=== PATIENT | male | born 1975 | race Caucasian/White ===

== ENCOUNTER 2017-07-03 15:36 | Emergency (ER) | payer OTHER, MEDICAID, SELFPAY ==
[2017-07-03 15:39] VITALS: BP 114/72; PULSE 81; RESP 20; TEMP 36.6; O2SAT 99; BMI 32.2
--- NOTE | 2017-07-03 15:44 | PC.NURSE ---
States is now clean off any drugs
--- NOTE | 2017-07-03 15:50 | ED.ABDPAIN ---
HPI - Abdominal Pain General Chief Complaint: Abdominal Pain Stated Complaint: 'STOMACH BURNING' Time Seen by Provider: 07/03/17 15:50 Source: patient Mode of arrival: ambulatory Limitations: no limitations History of Present Illness HPI narrative: 41-year-old male with a history of gastritis in the past presents with epigastric and left upper quadrant abdominal pain/burning that began this morning after taking 3 prescription strength Aleve. He also had alcohol last night. He denies a history of tobacco use. He has never had an upper endoscopy. He is currently on methadone for narcotic abuse. He denies fevers or chills. Denies diarrhea. Denies nausea or vomiting. Related Data Home Medications Medication Instructions Recorded Confirmed naproxen 1,500 mg PO PRN 07/03/17 07/03/17 Previous Rx's Medication Instructions Recorded cephalexin [Keflex] 500 mg PO Q6H #56 cap 04/28/17 methadone 10 mg PO Q8H #1 tab 04/28/17 omeprazole magnesium [Prilosec OTC] 40 mg PO DAILY 14 Days #30 tab 07/03/17 Allergies Allergy/AdvReac Type Severity Reaction Status Date / Time No Known Drug Allergies Allergy Verified 07/03/17 16:46 Review of Systems Review of Systems All systems reviewed & are unremarkable except as noted in HPI and below Constitutional Denies chills, Denies fever(s), Denies lethargy and Denies weakness Eyes Denies change in vision, Denies eye discharge, Denies irritation and Denies loss of vision ENT Ears, Nose, Mouth, and Throat: Denies change in voice, Denies neck pain and Denies sore throat Cardiovascular Denies chest pain, Denies irregular heart rhythm, Denies lightheadedness, Denies palpitations, Denies dyspnea, Denies dyspnea on exertion and Denies orthopnea Respiratory Denies cough, Denies dyspnea, Denies dyspnea on exertion and Denies wheezing Gastrointestinal Gastrointestinal: Reports abdominal pain, Denies hematochezia, Denies change in bowel habits, Denies tenesmus, Denies diarrhea, Denies nausea and Denies vomiting Genitourinary Denies hematuria, Denies flank pain, Denies urinary incontinence and Denies urinary urgency Musculoskeletal Denies neck pain Integumentary/Breasts Denies pruritus, Denies erythema, Denies rash and Denies wounds Neurologic Denies confusion, Denies loss of vision and Denies weakness Psychiatric Denies anxiety, Denies confusion, Denies depression, Denies homicidal ideation and Denies suicidal ideation Endocrine Denies palpitations Hematologic/Lymphatic Denies easy bruising Allergic/Immunologic Denies wheezing PFSH Social History Smoking Status: Never smoker Exam Initial Vital Signs Initial Vital Signs: Vital Signs Temperature 97.8 F 07/03/17 15:39 Pulse Rate 81 07/03/17 15:39 Respiratory Rate 20 07/03/17 15:39 Blood Pressure 114/72 07/03/17 15:39 Pulse Oximetry 99 07/03/17 15:39 Const General: cooperative and well developed Nutritional Appearance: well nourished Orientation: alert, awake, oriented x3 and not confused HENMT Head: normocephalic and atraumatic Ears: external ears normal and TM's normal bilaterally Nose: external nose normal and No nasal discharge Face and sinus: sinuses nontender, face symmetric, no sinus tenderness and No dry mucous membranes Mouth: oral mucosae normal and moist mucous membranes Teeth and gingiva: dentition normal Throat: tonsils normal and uvula midline Eyes General: appearance normal, both eyes and all related structures Eyelids: eyelids normal Conjunctivae: conjunctivae normal Sclera: sclerae normal Pupils: PERRL EOM: EOM intact bilaterally Neck Neck: normal visual inspection, trachea midline, No lymphadenopathy, No midline deformity and No JVD Lymphatic: No lymphedema Chest Chest: normal inspection of the chest Resp Effort & Inspection: normal respiratory effort, able to speak in complete sentences, no respiratory distress and no use of accessory muscles Auscultation: clear to auscultation bilaterally, no rales, no rhonchi and no wheezes Cardio Rate: regular rate Rhythm: regular rhythm Heart Sounds: no click, no gallops, no murmurs and no rubs Pulses: normal peripheral pulses GI Inspection: non-distended Palpation: soft, no hepatosplenomegaly, No guarding, No pulsatile mass and No tender Auscultation: normal bowel sounds Back/Spine/Pelvis Back: No CVA tenderness Cervical Spine: cervical ROM normal and No pain with cervical ROM Thoracic/Lumbar Spine: thoracic and lumbar spine normal to inspection Skin General: no rashes or lesions noted, No jaundice and No petechiae Neuro General: alert, oriented x3, gait normal and no focal motor deficits Cranial Nerves: CN's II-XI intact bilaterally Speech: speech normal Motor: strength 5/5 throughout Sensory Exam: no sensory deficits noted Extrem General: full ROM, no clubbing, cyanosis or edema, no pedal edema and no calf tenderness Psych Appearance: well kempt Mental Status: mental status grossly normal Attitude: cooperative Thought Content: normal and suicidality Judgment: judgment good Course Orders Ordered: Discontinued Medications Al Hydrox/Mg Hydrox/Simethicone 20 ml/ Lidocaine HCl 15 ml 0 ml PO NOW ONE Stop: 07/03/17 16:40 Last Admin: 07/03/17 16:46 Dose: 40 ml Vital Signs - 8 hr 07/03/17 15:39 07/03/17 16:40 Temperature 97.8 F Pulse Rate 81 76 Respiratory Rate 20 16 Blood Pressure 114/72 Blood Pressure [Left Arm] 120/80 Pulse Oximetry 99 97 MDM - Abdominal Pain Differential Diagnosis Differential diagnosis: Likely abdominal pain, acute appendicitis, calculus of kidney, constipation, diverticulitis, gastroenteritis, pancreatitis and small bowel obstruction Medical Records Attestation: I reviewed the patient's medical records. MDM Narrative Medical decision making narrative: 41-year-old male with a history of gastritis presenting with epigastric and left upper quadrant pain after taking 3 Aleve today and after drinking alcohol last night. His symptoms improved completely with the GI cocktail suggesting gastritis versus peptic ulcer disease. He was started on Prilosec and discharged home with 2 week prescription and close follow-up advised. Advised also that he refrain from NSAID use and alcohol use. He is agreeable. I did not feel a need for lab work or imaging based on his symptoms and the resolution of his pain with GI cocktail. He appeared comfortable even on initial exam Discharge Plan Departure Patient Disposition: Home, Self-Care Clinical Impression: Gastritis, Abdominal pain Discharge Date/Time: 07/03/17 17:44 Interventions: ED Discharge Assessment Last Done: 07/03/17 17:15 Instructions: DI for Gastritis Activity Restrictions/Additional Instructions: Thank you for trusting as with your care today. I believe that you have gastritis as a consequence of your naproxen use and the alcohol. Take Prilosec 40 mg daily as prescribed for the next 2 weeks. You can continue this if your symptoms do not improve. Return to the ER for new or worsening symptoms. Prescriptions: New omeprazole magnesium [Prilosec OTC] 20 mg tablet,delayed release (DR/EC) 40 mg PO DAILY 14 Days Qty: 30 RF: 0 No Action cephalexin [Keflex] 500 MG capsule 500 mg PO Q6H Qty: 56 RF: 0 methadone 10 MG tablet 10 mg PO Q8H Qty: 1 RF: 0 naproxen 500 mg Tablet 1,500 mg PO PRN RF: 0
[2017-07-03 16:40] VITALS: BP 120/80; PULSE 76; RESP 16; O2SAT 97
[2017-07-03] MEDS: MAG HYDROX/ALUMINUM/SIMETH SUS 20 ML, LIDOCAINE VISCOUS 2% 15 ML PO (16:46)
== END 2017-07-03 17:44 | disposition home or self-care (01) ==
PROVIDERS: Emergency Provider Emergency Medicine; Family Provider Family Medicine; PCP Family Medicine
DX: K29.70 Gastritis, unspecified, without bleeding (principal)
CPT/HCPCS: 81003; 99282; 99283

== ENCOUNTER 2017-07-19 02:48 | Emergency (ER) | payer MEDICAID, OTHER, SELFPAY ==
[2017-07-19 02:57] VITALS: BP 111/71; PULSE 79; RESP 16; TEMP 36.5; O2SAT 97
--- NOTE | 2017-07-19 03:31 | PC.NURSE ---
provider discussed situation to pt. pt repeatedly stated i have rights The law is on my side. provider explained how [facility]on will help pt and repeatedly gave examples of how is a functional member of society and at home and work. pt is distressed and upset at the situation. 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 provider discussed this with [facility].
--- NOTE | 2017-07-19 04:02 | DI.RAD.S_ITS ---
PROCEDURE: XR ACUTE ABDOMEN SERIES INDICATIONS: Abdominal pain TECHNIQUE: One view chest and two views of the abdomen were acquired. COMPARISON: None. FINDINGS: Surgical changes and devices: None. Chest: Lungs are clear. Heart size is normal. No pleural effusions. No pneumoperitoneum. Abdomen: Bowel gas pattern is normal. No suspicious calcifications. Visualized solid organ contours appear normal. Bones: No suspicious bony lesions. IMPRESSION: No acute cardiopulmonary findings. No acute intra-abdominal findings. Dictated by: Heidi Kunz M.D. on 07/19/2017 at 8:26 Approved by: Heidi Kunz M.D. on 07/19/2017 at 8:26
--- NOTE | 2017-07-19 04:41 | ED_ITS ---
HPI - Abdominal Pain General Chief Complaint: Abdominal Pain Stated Complaint: STOMACH PAIN Time Seen by Provider: 07/19/17 03:37 Source: patient Mode of arrival: ambulatory Limitations: no limitations History of Present Illness HPI narrative: Patient presents to the emergency department for evaluation of ongoing epigastric discomfort few weeks. He was here few weeks ago and states a GI cocktail helped him a bit but that has since worn off. He has been taking his omeprazole but is no longer experiencing relief. He states this pain got worse after drinking some Tequila and taking and Naprosyn. He denies any history of gallbladder or pancreatic trouble. He has never had an endoscopy MD complaint: abdominal pain Onset (ago): day(s) Pain Consistency: constant Location: epigastric Severity: moderate Quality: cramping and burning Radiation: none Migration to: no migration Relieving factors: nothing Exacerbating factors: eating, bowel movement and medication Associated symptoms: denies other symptoms Related Data Previous Rx's Medication Instructions Recorded methadone 10 mg PO Q8H #1 tab 04/28/17 Allergies Allergy/AdvReac Type Severity Reaction Status Date / Time No Known Drug Allergies Allergy Verified 07/19/17 03:50 Review of Systems Review of Systems All systems reviewed & are unremarkable except as noted in HPI and below Constitutional Denies chills, Denies fever(s), Denies lethargy and Denies weakness Eyes Denies change in vision, Denies eye discharge, Denies irritation and Denies loss of vision ENT Ears, Nose, Mouth, and Throat: Denies change in voice, Denies neck pain and Denies sore throat Cardiovascular Denies chest pain, Denies irregular heart rhythm, Denies lightheadedness, Denies palpitations, Denies dyspnea, Denies dyspnea on exertion and Denies orthopnea Respiratory Denies cough, Denies dyspnea, Denies dyspnea on exertion and Denies wheezing Gastrointestinal Gastrointestinal: Reports abdominal pain, Denies change in bowel habits, Denies diarrhea, Denies nausea and Denies vomiting Genitourinary Denies hematuria, Denies flank pain, Denies urinary incontinence and Denies urinary urgency Musculoskeletal Denies neck pain Integumentary/Breasts Denies pruritus, Denies erythema, Denies rash and Denies wounds Neurologic Denies confusion, Denies loss of vision and Denies weakness Psychiatric Denies anxiety, Denies confusion, Denies depression, Denies homicidal ideation and Denies suicidal ideation Endocrine Denies palpitations Hematologic/Lymphatic Denies easy bruising Allergic/Immunologic Denies wheezing PFSH Social History Smoking Status: Never smoker Exam Initial Vital Signs Initial Vital Signs: Vital Signs Temperature 97.7 F 07/19/17 02:57 Pulse Rate 79 07/19/17 02:57 Respiratory Rate 16 07/19/17 02:57 Blood Pressure 111/71 07/19/17 02:57 Pulse Oximetry 97 07/19/17 02:57 Const General: cooperative and well developed Nutritional Appearance: well nourished Orientation: alert, awake, oriented x3 and not confused Eyes General: appearance normal, both eyes and all related structures Eyelids: eyelids normal Conjunctivae: conjunctivae normal Sclera: sclerae normal Pupils: PERRL EOM: EOM intact bilaterally Resp Effort & Inspection: normal respiratory effort, able to speak in complete sentences, no respiratory distress and no use of accessory muscles Auscultation: clear to auscultation bilaterally, no rales, no rhonchi and no wheezes GI Inspection: non-distended Palpation: soft, no hepatosplenomegaly, No guarding, No pulsatile mass and tender (Very mild upper abdominal tenderness) Auscultation: normal bowel sounds Skin General: no rashes or lesions noted, No jaundice and No petechiae Extrem General: full ROM, no clubbing, cyanosis or edema, no pedal edema and no calf tenderness Course Orders Ordered: ED Orders 07/19/17 04:02 XR acute abdomen series Stat 07/19/17 04:22 Basic Metabolic Panel Stat Complete Blood Count AUTO DIFF Stat Lipase Stat Discontinued Medications Al Hydrox/Mg Hydrox/Simethicone 20 ml/ Lidocaine HCl 15 ml 0 ml PO NOW ONE Stop: 07/19/17 04:02 Last Admin: 07/19/17 04:55 Dose: 35 ml Vital Signs - 8 hr 07/19/17 02:57 07/19/17 05:39 Temperature 97.7 F Pulse Rate 79 82 Respiratory Rate 16 16 Blood Pressure 111/71 122/82 H Pulse Oximetry 97 100 MDM - Abdominal Pain Differential Diagnosis Differential diagnosis: Likely abdominal pain, constipation, gastroenteritis, pancreatitis and small bowel obstruction Medical Records Attestation: I reviewed the patient's medical records. Lab Data Attestation: I reviewed the patient's lab results. Result diagrams: 07/19/17 04:22 07/19/17 04:22 Lab Results 07/19/17 07/19/17 Range/Units 04:22 04:22 WBC 7.4 (4.5-11.0) X10^3/uL RBC 4.84 (4.5-5.9) X10^6/uL Hgb 14.4 (13.5-17.5) g/dL Hct 41.8 (41-53) % MCV 86.3 (80-100) fL MCH 29.8 (26-34) PG MCHC 34.5 (30-36) % RDW 13.8 (11.6-14.8) % Plt Count 234 (150-400) X10^3/uL Neut % (Auto) 60.4 (50-75) % Lymph % (Auto) 24.9 L (25-40) % [place] % (Auto) 10.1 (3-14) % Eos % (Auto) 4.2 H (2-4) % Baso % (Auto) 0.4 (0-2) % Neut # (Auto) 4400 (3672-2024) /uL Sodium 139 (137-145) mmol/L Potassium 4.0 (3.4-5.1) mmol/L Chloride 101 (98-107) mmol/L Carbon Dioxide 27 (22-32) mmol/L BUN 24 H (9-20) mg/dL Creatinine 0.90 (0.66-1.25) mg/dL Estimated GFR > 60.0 (>60) mL/min BUN/Creatinine Ratio 26.7 H (6-22) Glucose 105 H (70-100) mg/dL Calcium 9.1 (8.4-10.2) mg/dL Lipase 54 (23-300) U/L Imaging Data Abdominal x-ray: Attestation: I personally reviewed and interpreted this imaging study as follows: My impression: NAP, non specific bowel gas pattern Discharge Plan Departure Patient Disposition: Home, Self-Care Clinical Impression: Abdominal pain, acute, epigastric Discharge Date/Time: 07/19/17 05:40 Interventions: ED Discharge Assessment Last Done: 07/19/17 05:39 Instructions: DI for Abdominal Pain-Adult Activity Restrictions/Additional Instructions: 1. Drink plenty of fluids with frequent small sips. 2. For the next 24 hours a clear liquid diet is advised. After that please employ a brat diet which would include bananas, rice, apples, toast. 3. Please take medications as directed. 4. Please follow-up with your doctor in the next 1-2 days. Call the office for an appointment. 5. Please return to the emergency Department for any worsening or persistent symptoms, such as increasing pain or fever. Prescriptions: No Action methadone 10 MG tablet 10 mg PO Q8H Qty: 1 RF: 0 Referrals: Сергей Vogel MD [Physician] - Pia Dixon DO [Primary Care Provider] -
[2017-07-19 04:48] LABS: Add Manual Diff / Slide Review NO; Basophils Percent Auto 0.4 % (0-2); Eosinophils Percent Auto 4.2 % (2-4); Hematocrit 41.8 % (41-53); Hemoglobin 14.4 g/dL (13.5-17.5); Lymphocytes Percent Auto 24.9 % (25-40); Mean Corpuscular HGB Conc 34.5 % (30-36); Mean Corpuscular Hemoglobin 29.8 PG (26-34); Mean Corpuscular Volume 86.3 fL (80-100); Monocytes Percent Auto 10.1 % (3-14); Neutrophils Absolute Auto 4400 /uL (3000-5900); Neutrophils Percent Auto 60.4 % (50-75); Platelet Count 234 X10^3/uL (150-400); Red Blood Cell Count 4.84 X10^6/uL (4.5-5.9); Red Cell Distribution Width 13.8 % (11.6-14.8); White Blood Cell Count 7.4 X10^3/uL (4.5-11.0)
[2017-07-19 04:51] LABS: BUN Creatinine Ratio 26.7 (6-22); Blood Urea Nitrogen 24 mg/dL (9-20); Calcium 9.1 mg/dL (8.4-10.2); Carbon Dioxide 27 mmol/L (22-32); Chloride 101 mmol/L (98-107); Estimated Glomerular Filt Rate > 60.0 mL/min (>60); Glucose 105 mg/dL (70-100); HEMOLYSIS 16 (0-50); Lipase 54 U/L (23-300); Sodium 139 mmol/L (137-145)
[2017-07-19] MEDS: MAG HYDROX/ALUMINUM/SIMETH SUS 20 ML, LIDOCAINE VISCOUS 2% 15 ML PO (04:55)
[2017-07-19 05:39] VITALS: BP 122/82; PULSE 82; RESP 16; O2SAT 100
== END 2017-07-19 05:40 | disposition home or self-care (01) ==
PROVIDERS: Emergency Provider Emergency Medicine; Family Provider Family Medicine; PCP Family Medicine
DX: R10.13 Epigastric pain (principal)
CPT/HCPCS: 36415; 74022; 80048; 83690; 85025; 99282; 99284

== ENCOUNTER 2017-09-02 22:42 | Emergency (ER) | payer OTHER, MEDICAID, SELFPAY ==
[2017-09-02 22:56] VITALS: BP 106/60; PULSE 76; RESP 18; TEMP 36.6; O2SAT 97; BMI 30.9
[2017-09-03] MEDS: ONDANSETRON 4 MG/2 ML INJ IV (00:55)
[2017-09-03] MEDS: PANTOPRAZOLE 40 MG VIAL IV (00:55)
--- NOTE | 2017-09-03 01:20 | PC.NURSE ---
Attempted IV insertion multipletimes. Able to draw labs but not advance catheter. Dr Watson aware,ok with lab draw at this time.
[2017-09-03 01:23] LABS: Add Manual Diff / Slide Review NO; Eosinophils Percent Auto 3.8 % (2-4); Hematocrit 42.5 % (41-53); Hemoglobin 14.5 g/dL (13.5-17.5); Lymphocytes Percent Auto 36.6 % (25-40); Mean Corpuscular HGB Conc 34.1 % (30-36); Mean Corpuscular Hemoglobin 29.4 PG (26-34); Mean Corpuscular Volume 86.2 fL (80-100); Monocytes Percent Auto 7.8 % (3-14); Neutrophils Absolute Auto 4000 /uL (3000-5900); Neutrophils Percent Auto 50.8 % (50-75); Platelet Count 229 X10^3/uL (150-400); Red Blood Cell Count 4.93 X10^6/uL (4.5-5.9); Red Cell Distribution Width 13.1 % (11.6-14.8); White Blood Cell Count 7.8 X10^3/uL (4.5-11.0)
[2017-09-03 01:29] LABS: Prothrombin Time 10.8 SECONDS (10.1-12.7)
[2017-09-03 01:31] LABS: PTT Partial Thromboplastin Tim 28 SECONDS (26.4-36.2)
[2017-09-03 01:33] LABS: Alanine Aminotransferase 335 IU/L (21-72); Albumin 4.5 g/dL (3.5-5.0); Albumin Globulin Ratio 1.4 (1.0-2.8); Alkaline Phosphatase 98 U/L (38-126); Aspartate Aminotransferase 186 IU/L (17-59); Bilirubin Total 0.9 mg/dL (0.2-1.3); Blood Urea Nitrogen 24 mg/dL (9-20); Calcium 9.5 mg/dL (8.4-10.2); Carbon Dioxide 29 mmol/L (22-32); Chloride 104 mmol/L (98-107); Estimated Glomerular Filt Rate > 60.0 mL/min (>60); Globulin 3.3 g/dL (1.7-4.1); Glucose 105 mg/dL (70-100); HEMOLYSIS 15 (0-50); Potassium 4.4 mmol/L (3.4-5.1); Sodium 143 mmol/L (137-145); Total Protein 7.8 g/dL (6.3-8.2)
[2017-09-03 02:13] VITALS: BP 110/70; PULSE 76; RESP 18; O2SAT 98
--- NOTE | 2017-09-03 02:39 | ED_ITS ---
HPI - Abdominal Pain General Chief Complaint: Abdominal Pain Stated Complaint: BLACK STOOLS Time Seen by Provider: 09/02/17 22:51 Source: patient Mode of arrival: ambulatory Limitations: no limitations History of Present Illness HPI narrative: 41-year-old male presents with chief complaint of generalized abdominal pain and the occasion of dark stools with bright red stool tonight. He is not dizzy nor weak or lightheaded. He admits to maybe 1 ibuprofen daily. He denies alcohol. Takes no blood thinners. This is his 3rd visit for similar, starting in June he was evaluated and diagnosed with gastritis and again in July for acute epigastric pain. He was encouraged to follow up with gastroenterology as he has never had endoscopy or colonoscopy. He has followed up with the walk-in clinic and has an appointment on September 22 with Gastroenterology MD complaint: abdominal pain Onset (ago): month(s) Pain Consistency: intermittent Location: diffuse Severity: mild Radiation: none Migration to: no migration Relieving factors: nothing Exacerbating factors: nothing Associated symptoms: nausea, hematochezia and melena Related Data Home Medications Medication Instructions Recorded Confirmed bismuth subsalicylate 30 ml 09/02/17 [Pepto-Bismol] Previous Rx's Medication Instructions Recorded methadone 10 mg PO Q8H #1 tab 04/28/17 omeprazole 40 mg PO DAILY #14 cap 09/03/17 Allergies Allergy/AdvReac Type Severity Reaction Status Date / Time No Known Drug Allergies Allergy Verified 07/19/17 03:50 Review of Systems Review of Systems All systems reviewed & are unremarkable except as noted in HPI and below Constitutional Denies chills, Denies fever(s), Denies lethargy and Denies weakness Eyes Denies change in vision, Denies eye discharge, Denies irritation and Denies loss of vision ENT Ears, Nose, Mouth, and Throat: Denies change in voice, Denies neck pain and Denies sore throat Cardiovascular Denies chest pain, Denies irregular heart rhythm, Denies lightheadedness, Denies palpitations, Denies dyspnea, Denies dyspnea on exertion and Denies orthopnea Respiratory Denies cough, Denies dyspnea, Denies dyspnea on exertion and Denies wheezing Gastrointestinal Gastrointestinal: Denies abdominal pain, Reports hematochezia, Denies change in bowel habits, Denies diarrhea, Denies nausea and Denies vomiting Genitourinary Denies hematuria, Denies flank pain, Denies urinary incontinence and Denies urinary urgency Musculoskeletal Denies neck pain Integumentary/Breasts Denies pruritus, Denies erythema, Denies rash and Denies wounds Neurologic Denies confusion, Denies loss of vision and Denies weakness Psychiatric Denies anxiety, Denies confusion, Denies depression, Denies homicidal ideation and Denies suicidal ideation Endocrine Denies palpitations Hematologic/Lymphatic Denies easy bruising Allergic/Immunologic Denies wheezing [facility] Social History Smoking Status: Never smoker Exam Initial Vital Signs Initial Vital Signs: Vital Signs Temperature 98 F 09/02/17 22:56 Pulse Rate 76 09/02/17 22:56 Respiratory Rate 18 09/02/17 22:56 Blood Pressure 106/60 09/02/17 22:56 Pulse Oximetry 97 09/02/17 22:56 Const General: cooperative and well developed Nutritional Appearance: well nourished Orientation: alert, awake, oriented x3 and not confused HENMT Head: normocephalic and atraumatic Ears: external ears normal and TM's normal bilaterally Nose: external nose normal and No nasal discharge Face and sinus: sinuses nontender, face symmetric, no sinus tenderness and No dry mucous membranes Mouth: oral mucosae normal and moist mucous membranes Teeth and gingiva: dentition normal Throat: tonsils normal and uvula midline Eyes General: appearance normal, both eyes and all related structures Eyelids: eyelids normal Conjunctivae: conjunctivae normal Sclera: sclerae normal Pupils: PERRL EOM: EOM intact bilaterally Neck Neck: normal visual inspection, trachea midline, No lymphadenopathy, No midline deformity and No JVD Lymphatic: No lymphedema Chest Chest: normal inspection of the chest Resp Effort & Inspection: normal respiratory effort, able to speak in complete sentences, no respiratory distress and no use of accessory muscles Auscultation: clear to auscultation bilaterally, no rales, no rhonchi and no wheezes Cardio Rate: regular rate Rhythm: regular rhythm Heart Sounds: no click, no gallops, no murmurs and no rubs Pulses: normal peripheral pulses GI Inspection: non-distended Palpation: soft, no hepatosplenomegaly, No guarding, No pulsatile mass and tender ( mild tenderness) Auscultation: normal bowel sounds Back/Spine/Pelvis Back: No CVA tenderness Cervical Spine: cervical ROM normal and No pain with cervical ROM Thoracic/Lumbar Spine: thoracic and lumbar spine normal to inspection Skin General: no rashes or lesions noted, No jaundice and No petechiae Neuro General: alert, oriented x3, gait normal and no focal motor deficits Speech: speech normal Extrem General: full ROM, no clubbing, cyanosis or edema, no pedal edema and no calf tenderness Psych Appearance: well kempt Mental Status: mental status grossly normal Attitude: cooperative Thought Content: normal and suicidality Judgment: judgment good Course Orders Ordered: ED Orders 09/03/17 00:40 Complete Blood Count AUTO DIFF Stat Comprehensive Metabolic Panel Stat Partial Thromboplastin Time Stat Prothrombin Time INR Stat Type and Screen Stat Discontinued Medications Ondansetron HCl (Zofran) 4 mg IV NOW ONE Stop: 09/03/17 00:07 Last Admin: 09/03/17 00:55 Dose: 4 mg Pantoprazole Sodium (Protonix) 40 mg IV NOW ONE Stop: 09/03/17 00:07 Last Admin: 09/03/17 00:55 Dose: 40 mg Vital Signs - 8 hr 09/02/17 22:56 09/03/17 02:13 Temperature 98 F Pulse Rate 76 76 Respiratory Rate 18 18 Blood Pressure 106/60 Blood Pressure [Left Arm] 110/70 Pulse Oximetry 97 98 MDM - Abdominal Pain Differential Diagnosis Differential diagnosis: Likely abdominal pain, gastroenteritis, pancreatitis and small bowel obstruction Medical Records Attestation: I reviewed the patient's medical records. Lab Data Attestation: I reviewed the patient's lab results. Result diagrams: 09/03/17 00:40 09/03/17 00:40 Lab Results 09/03/17 09/03/17 09/03/17 Range/Units 00:40 00:40 00:40 WBC 7.8 (4.5-11.0) X10^3/uL RBC 4.93 (4.5-5.9) X10^6/uL Hgb 14.5 (13.5-17.5) g/dL Hct 42.5 (41-53) % MCV 86.2 (80-100) fL MCH 29.4 (26-34) PG MCHC 34.1 (30-36) % RDW 13.1 (11.6-14.8) % Plt Count 229 (150-400) X10^3/uL Neut % (Auto) 50.8 (50-75) % Lymph % (Auto) 36.6 (25-40) % Catron % (Auto) 7.8 (3-14) % Eos % (Auto) 3.8 (2-4) % Baso % (Auto) 1.0 (0-2) % Neut # (Auto) 4000 (0721-0302) /uL PT 10.8 (10.1-12.7) SECONDS INR 1.0 (0.9-1.3) APTT 28 (26.4-36.2) SECONDS Sodium 143 (137-145) mmol/L Potassium 4.4 (3.4-5.1) mmol/L Chloride 104 (98-107) mmol/L Carbon Dioxide 29 (22-32) mmol/L BUN 24 H (9-20) mg/dL Creatinine 1.00 (0.66-1.25) mg/dL Estimated GFR > 60.0 (>60) mL/min BUN/Creatinine Ratio 24.0 H (6-22) Glucose 105 H (70-100) mg/dL Calcium 9.5 (8.4-10.2) mg/dL Total Bilirubin 0.9 (0.2-1.3) mg/dL AST 186 H (17-59) IU/L ALT 335 H (21-72) IU/L Alkaline Phosphatase 98 (38-126) U/L Total Protein 7.8 (6.3-8.2) g/dL Albumin 4.5 (3.5-5.0) g/dL Globulin 3.3 (1.7-4.1) g/dL Albumin/Globulin Ratio 1.4 (1.0-2.8) Blood Type Antibody Screen 09/03/17 Range/Units 00:40 WBC (4.5-11.0) X10^3/uL RBC (4.5-5.9) X10^6/uL Hgb (13.5-17.5) g/dL Hct (41-53) % MCV (80-100) fL MCH (26-34) PG MCHC (30-36) % RDW (11.6-14.8) % Plt Count (150-400) X10^3/uL Neut % (Auto) (50-75) % Lymph % (Auto) (25-40) % Catron % (Auto) (3-14) % Eos % (Auto) (2-4) % Baso % (Auto) (0-2) % Neut # (Auto) (0368-8364) /uL PT (10.1-12.7) SECONDS INR (0.9-1.3) APTT (26.4-36.2) SECONDS Sodium (137-145) mmol/L Potassium (3.4-5.1) mmol/L Chloride (98-107) mmol/L Carbon Dioxide (22-32) mmol/L BUN (9-20) mg/dL Creatinine (0.66-1.25) mg/dL Estimated GFR (>60) mL/min BUN/Creatinine Ratio (6-22) Glucose (70-100) mg/dL Calcium (8.4-10.2) mg/dL Total Bilirubin (0.2-1.3) mg/dL AST (17-59) IU/L ALT (21-72) IU/L Alkaline Phosphatase (38-126) U/L Total Protein (6.3-8.2) g/dL Albumin (3.5-5.0) g/dL Globulin (1.7-4.1) g/dL Albumin/Globulin Ratio (1.0-2.8) Blood Type O Negative Antibody Screen Negative Point of care testing: Urine Dip Bedside Urine Glucose Negative Bedside Urine Bilirubin - Negative Bedside Urine Ketone - Negative Urine Specific Cyril 1.030 Bedside Urine Occult Blood - Negative Bedside Urine pH 6.0 Bedside Urine Protein - Negative Bedside Urine Urobilinogen - Negative Bedside Urine Nitrite - Negative Bedside Urine Leukocytes - Negative Esterase MDM Narrative Medical decision making narrative: patient is had this generalized abdominal discomfort and change in his stool character for many months. He has an upcoming appointment with Gastroenterology. He is not dizzy nor weak or lightheaded. He states that he has only been having infrequent episodes of dark stools until he started taking Pepto-Bismol daily and now he has black stool daily. Discharge Plan Departure Patient Disposition: Home, Self-Care Clinical Impression: Chronic GI bleeding Instructions: Gastrointestinal Bleeding Activity Restrictions/Additional Instructions: *You have been diagnosed with [ Acute on chronic gastrointestinal bleeding ] *What to do: *Take medications as directed: avoid alcohol, ibuprofen, Motrin, Naprosyn , aspirin *Follow up with your primary care provider in 2-3 days, call for an appointment. Let them know you were seen in the Emergency Department and that we ask that you be seen in follow up. call your cloud systems architect tomorrow and let them know your in the emergency department, they may want to see you sooner *Return to ER if you should have any new, worsening or concerning symptoms , such as [ fever over 101, increasing pain, persistent vomiting, more frequent gastrointestinal bleeding ] Prescriptions: New omeprazole 40 mg capsule,delayed release(DR/EC) 40 mg PO DAILY Qty: 14 RF: 0 No Action methadone 10 MG tablet 10 mg PO Q8H Qty: 1 RF: 0 bismuth subsalicylate [Pepto-Bismol] 262 mg/15 mL Suspension 30 ml RF: 0 Referrals: Pantera Marrero MD [Physician] - Pia Dixon DO [Primary Care Provider] -
== END 2017-09-03 03:03 | disposition home or self-care (01) ==
PROVIDERS: Emergency Provider Emergency Medicine; Family Provider Family Medicine; PCP Family Medicine
DX: K92.2 Gastrointestinal hemorrhage, unspecified (principal)
CPT/HCPCS: 36415; 80053; 81003; 85025; 85610; 85730; 86850; 86900; 86901; 96374; 96375; 99283; 99284; C9113; J2405

== ENCOUNTER → 2018-06-14 16:18 | Outpatient (CLI) | payer OTHER, MEDICAID, SELFPAY ==
[2018-06-14 18:22] LABS: Alanine Aminotransferase 138 IU/L (21-72); Albumin 4.5 g/dL (3.5-5.0); Albumin Globulin Ratio 1.3 (1.0-2.8); Alkaline Phosphatase 92 U/L (38-126); Aspartate Aminotransferase 53 IU/L (17-59); Bilirubin Total 0.8 mg/dL (0.2-1.3); Blood Urea Nitrogen 21 mg/dL (9-20); Calcium 9.3 mg/dL (8.4-10.2); Carbon Dioxide 28 mmol/L (22-32); Chloride 101 mmol/L (98-107); Estimated Glomerular Filt Rate > 60.0 mL/min (>60); Globulin 3.5 g/dL (1.7-4.1); Glucose 82 mg/dL (70-100); HEMOLYSIS < 15 (0-50); Potassium 3.9 mmol/L (3.4-5.1); Sodium 139 mmol/L (137-145)
[2018-06-14 20:36] LABS: Hep C Virus Ab w/Reflex Quant REACTIVE s/c (NEGATIVE)
[2018-06-18 14:32] LABS: Hepatitis A Antibody Total Nonreactive (Nonreactive)
[2018-06-19 12:15] LABS: Hepatitis B Surf AB Imm QUANT < 5 mIU/mL (> 9)
== END ==
PROVIDERS: Family Provider Family Medicine; Visit Provider Family Medicine
DX: Z51.81 Encounter for therapeutic drug level monitoring (principal); Z11.59 Encounter for screening for other viral diseases; F11.20 Opioid dependence, uncomplicated
CPT/HCPCS: 36415; 80053; 86317; 86708; 86803; 87522

== ENCOUNTER → 2018-08-25 07:12 | Outpatient (CLI) | payer OTHER, MEDICAID, SELFPAY ==
--- NOTE | 2018-08-25 | DI.US.S_ITS ---
PROCEDURE: US ABDOMEN COMPLETE INDICATIONS: HEPATITIS C TECHNIQUE: Real-time scanning was performed of the abdominal and retroperitoneal organs, with image documentation. COMPARISON: [facility], CR, XR ACUTE ABDOMEN SERIES, 07/19/2017, 3:48. [facility], CT, CT CHEST WO CON, 09/22/2016, 5:02. FINDINGS: Liver: Liver is diffusely increased in echogenicity. No focal hepatic abnormalities identified. Liver surface appears smooth. Normal hepatic size. Gallbladder: No gallstones identified. Normal gallbladder wall. No pericholecystic fluid. Negative sonographic Tran sign. Biliary ducts: Intrahepatic bile ducts are non-dilated. Extrahepatic bile duct caliberis normal and measures 2.1 mm. Pancreas: Visualized portions of the pancreas are sonographically normal. Spleen: Spleen is normal in size and homogeneous in echotexture. Kidneys: Kidneys are normal in size and echotexture. Right kidney measures 12.3 cm long; left kidney measures 11.1 cm long. No hydronephrosis or nephrolithiasis. No solid masses. Aorta: Visualized aorta is normal in caliber at less than 3 cm. Iliacs: Proximal common iliac arteries are normal in caliber at less than 2.5 cm. IVC: Intrahepatic inferior vena cava is patent. Miscellaneous: No free abdominal fluid. IMPRESSION: 1. Diffuse increased hepatic echogenicity which is most likely hepatic steatosis but could be seen in hepatocellular disease. No ascites. 2. No focal hepatic lesion identified. Dictated by: Germain WHYTE Interpreted: Mikey Strickland MD on 08/25/2018 at 9:18 Approved by: Mikey Strickland M.D. on 08/25/2018 at 11:44
== END ==
PROVIDERS: Family Provider Family Medicine; Visit Provider Nurse Practitioner Family
DX: B19.20 Unspecified viral hepatitis C without hepatic coma (principal)
CPT/HCPCS: 76700

== ENCOUNTER → 2019-06-06 15:32 | Outpatient (CLI) | payer OTHER, MEDICAID, SELFPAY ==
[2019-06-06 16:39] LABS: Add Manual Diff / Slide Review NO; Basophils Absolute Auto 100 /uL (0-100); Basophils Percent Auto 0.7 % (0-2); Eosinophils Absolute Auto 300 /uL (0-450); Eosinophils Percent Auto 2.6 % (2-4); Hematocrit 43.4 % (41-53); Hemoglobin 14.8 g/dL (13.5-17.5); Lymphocytes Absolute Auto 3200 /uL (1100-4500); Lymphocytes Percent Auto 30.3 % (25-40); Mean Corpuscular Hemoglobin 29.4 PG (26-34); Mean Corpuscular Volume 86.5 fL (80-100); Monocytes Absolute Auto 600 /uL (0-900); Monocytes Percent Auto 5.3 % (3-14); Neutrophils Absolute Auto 6500 /uL (1500-7000); Neutrophils Percent Auto 61.1 % (50-75); Red Blood Cell Count 5.02 X10^6/uL (4.5-5.9); Red Cell Distribution Width 13.1 % (11.6-14.8); White Blood Cell Count 10.6 X10^3/uL (4.5-11.0)
[2019-06-06 17:10] LABS: Platelet Count 231 X10^3/uL (150-400)
== END ==
PROVIDERS: Referring Provider Nurse Practitioner Family; Visit Provider Nurse Practitioner Family
DX: R94.8 Abnormal results of function studies of other organs and systems (principal); B18.2 Chronic viral hepatitis C; R53.81 Other malaise
CPT/HCPCS: 36415; 85025

== ENCOUNTER 2019-06-21 19:01 | Emergency (ER) | payer OTHER, MEDICAID, SELFPAY ==
[2019-06-21 19:04] VITALS: BP 145/81; PULSE 67; RESP 14; TEMP 36.9; O2SAT 99; BMI 30.9
--- NOTE | 2019-06-21 20:34 | ED_ITS ---
HPI - Headache General Chief Complaint: Headache Stated Complaint: migraine Time Seen by Provider: 06/21/19 20:34 Source: patient Mode of arrival: Ambulatory Limitations: no limitations History of Present Illness HPI Narrative: 43-year-old male smoker with history of GERD and migraines presents with gradually worsening headache over the course of the day. It is intense and on the left side of his head. It is made worse with bright lights and loud noise. He denies any recent travel nor illness including fever, neck pain or other. He has no neurologic findings such as blurred vision, trouble with speech or extremity numbness, weakness or tingling. He denies any nausea, vomiting or exposure to ill persons. He has had no trauma or head injury MD Complaint: headache and migraine Onset (ago): hour(s) Onset description: gradual Location: left Severity: moderate Quality: aching and throbbing Relieving factors: rest and dark room Exacerbating factors: light and noise Context: occurred at rest Associated symptoms: none Treatments prior to arrival: none Related Data Home Medications Medication Instructions Recorded Confirmed bismuth subsalicylate 30 ml 09/02/17 [Pepto-Bismol] Previous Rx's Medication Instructions Recorded methadone 10 mg PO Q8H #1 tab 04/28/17 omeprazole 40 mg PO DAILY #14 cap 09/03/17 Allergies Allergy/AdvReac Type Severity Reaction Status Date / Time No Known Drug Allergies Allergy Verified 06/21/19 19:04 Review of Systems Constitutional Constitutional: Denies chills, Denies fatigue, Denies fever(s), Denies frequent falls, Reports headache(s), Denies lethargy and Denies weakness Eyes Eyes: Denies change in vision, Denies eye discharge, Denies irritation and Denies loss of vision ENT Ears, Nose, Mouth, and Throat: Denies change in voice, Denies dizziness, Reports headache(s), Denies neck pain, Denies sore throat and Denies throat swelling Cardiovascular Cardiovascular: Denies chest pain, Denies irregular heart rhythm, Denies lightheadedness, Denies palpitations, Denies dyspnea, Denies dyspnea on exertion and Denies orthopnea Respiratory Respiratory: Denies cough, Denies dyspnea, Denies dyspnea on exertion and Denies wheezing Gastrointestinal Gastrointestinal: Denies abdominal pain, Denies change in bowel habits, Denies diarrhea, Denies nausea and Denies vomiting Genitourinary Genitourinary: Denies hematuria, Denies flank pain, Denies urinary incontinence and Denies urinary urgency Musculoskeletal Musculoskeletal: Denies back pain, Denies muscle weakness, Denies neck pain, Denies numbness and Denies tingling Integumentary/Breasts Skin/Breast: Denies pruritus, Denies erythema, Denies rash and Denies wounds Neurologic Neurologic: Denies behavioral changes, Denies confusion, Denies dizziness, Denies frequent falls, Reports headache(s), Denies loss of vision, Denies numbness, Denies tingling and Denies weakness Psychiatric Psychiatric: Denies anxiety, Denies behavioral changes, Denies confusion, Denies depression, Denies homicidal ideation and Denies suicidal ideation Endocrine Endocrine: Denies fatigue, Denies flushing and Denies palpitations Hematologic/Lymphatic Hematologic/Lymphatic: Denies easy bruising Allergic/Immunologic Allergic/Immunologic: Denies urticaria, Denies throat swelling and Denies wheezing Patient History Medical History Anxiety (Chronic Unknown) Degenerative disc disease at L5-S1 level (Chronic Unknown) GERD (gastroesophageal reflux disease) (Chronic Unknown) 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 Well- nourished, well-developed patient, in mild distress. Sitting in a dark room and the sizing his temples HEAD: Atraumatic. Normocephalic. EYES: Pupils equal round and reactive. Extraocular motions intact. No scleral icterus. No injection or drainage. ENT: Nose without bleeding, purulent drainage. Throat without erythema, tonsillar hypertrophy or exudate. Airway patent. NECK: Trachea midline. Non tender CARDIOVASCULAR: Regular rate and rhythm without murmurs, gallops, or rubs. RESPIRATORY: Clear to auscultation. Breath sounds equal bilaterally. No wheezes, rales, or rhonchi. GASTROINTESTINAL: Abdomen soft, non-tender, nondistended. EXTREMITIES: No edema or joint tenderness. BACK: Nontender without deformity or crepitance. No flank tenderness. NEURO: AOx3. SKIN: No rash or erythema of visible areas NIH Stroke Scale 1a. LOC: Patient is alert and keenly responsive (0) 1b. LOC Questions: Patient answers both LOC questions accurately (0) 1c. LOC Commands: Patient performs both tasks correctly (0) 2. Best Gaze: Normal (0) 3. Visual: No visual loss (0) 4. Facial palsy: Normal symmetrical movements (0) 5. Motor arm: No drift (0) 6. Motor leg: No drift (0) 7. Limb ataxia: Absent (0) 8. Sensory: Normal (0) 9. Best language: No aphasia; normal (0) 10. Dysarthria: Normal (0) 11. Extinction and inattention: No abnormality (0) NIHSS: 0 Initial Vital Signs Initial Vital Signs: Vital Signs Temperature 98.5 F 06/21/19 19:04 Pulse Rate 67 06/21/19 19:04 Respiratory Rate 14 06/21/19 19:04 Blood Pressure 145/81 H 06/21/19 19:04 Pulse Oximetry 99 06/21/19 19:04 Course Course Course Narrative: patient improves after above stated therapies Orders Ordered: Discontinued Medications Ketorolac Tromethamine (Toradol) 60 mg IM NOW ONE Stop: 06/21/19 20:53 Last Admin: 06/21/19 21:01 Dose: 60 mg Documented by: CELENA Metoclopramide HCl (Reglan) 10 mg IM NOW ONE Stop: 06/21/19 20:53 Last Admin: 06/21/19 21:01 Dose: 10 mg Documented by: CELENA Vital Signs Vital signs: Vital Signs - 8 hr 06/21/19 19:04 06/21/19 21:53 Temperature 98.5 F Pulse Rate 67 60 Respiratory Rate 14 16 Blood Pressure 145/81 H Blood Pressure [Left Arm] 124/60 Pulse Oximetry 99 100 Discharge Plan Departure Patient Disposition: Home Clinical Impression: Headache Qualifiers: Headache type: unspecified Headache chronicity pattern: acute headache Intractability: not intractable Qualified Code(s): R51 - Headache Discharge Date/Time: 06/21/19 21:54 Instructions: DI for Headache Activity Restrictions/Additional Instructions: *You have been diagnosed with [acute migraine type headache] *What to do: *Take medications as directed: tylenol, motrin and lots of fluids *Follow up with your primary care provider in 2-3 days, call for an appointment. Let them know you were seen in the Emergency Department and that we ask that you be seen in follow up *Return to ER if you should have any new, worsening or concerning symptoms Prescriptions: No Action methadone 10 MG tablet 10 mg PO Q8H Qty: 1 RF: 0 bismuth subsalicylate [Pepto-Bismol] 262 mg/15 mL Suspension 30 ml RF: 0 omeprazole 40 mg capsule,delayed release(DR/EC) 40 mg PO DAILY Qty: 14 RF: 0
[2019-06-21] MEDS: KETOROLAC 60 MG/2 ML VIAL IM (21:01)
[2019-06-21] MEDS: METOCLOPRAMIDE 10 MG/2 ML INJ IM (21:01)
[2019-06-21 21:53] VITALS: BP 124/60; PULSE 60; RESP 16; O2SAT 100
== END 2019-06-21 21:54 | disposition home or self-care (01) ==
PROVIDERS: Emergency Provider Emergency Medicine
DX: R51 Headache (principal)
CPT/HCPCS: 96372; 99283; J1885; J2765

== ENCOUNTER 2019-06-26 11:42 | Emergency (ER) | payer OTHER, MEDICAID, SELFPAY ==
[2019-06-26 11:49] VITALS: BP 150/72; PULSE 101; RESP 14; TEMP 37.5; O2SAT 98; BMI 30.9
[2019-06-26] MEDS: METOCLOPRAMIDE 10 MG/2 ML INJ IV (12:53)
[2019-06-26] MEDS: SODIUM CHLORIDE 0.9% 1,000 ML 1000 ML IV (12:53)
[2019-06-26] MEDS: diphenhydrAMINE 50 MG/ML VIAL 25 MG IV (12:53)
--- NOTE | 2019-06-26 13:17 | ED_ITS ---
HPI - Headache <LASHELL Aragon - Last Filed: 06/26/19 22:12> General Chief Complaint: Headache Stated Complaint: migraine/med burning stomach x3 days Time Seen by Provider: 06/26/19 12:56 Mode of arrival: Ambulatory Limitations: no limitations History of Present Illness HPI Narrative: 43yo male with a history of frequent headaches, GERD, an IV drug use (currently on methadone and decreasing dose), presents emergency department complaining of an ongoing headache for the past few weeks. Patient states he h as a history of headaches, since February he has gone headache every week. However, they usually resolve in a few days but this has been ongoing. Patient states he usually takes Marina daily for his headache which irritates his stomach. Patient was seen in the emergency department evaluated for headache 5 days ago on 06/21/2019 and was given Toradol and Reglan, reported decreased pain but headache continued. Patient states ?my stomach is more acidic since the Toradol ?. Patient is currently decreasing his methadone as well. Patient states the headache is bilateral, often behind his eyes, worse with loud noises, bright lights, and excessive movement. Patient states his pain is relieved with resting and sleeping. He denies any chest pain, fevers, neck pain, vision changes, dizziness, nausea, vomiting, diarrhea, memory issues, gait issues, difficulty speaking, or any other concerns. Related Data Home Medications Medication Instructions Recorded Confirmed bismuth subsalicylate 30 ml PO BID PRN 09/02/17 06/26/19 [Pepto-Bismol] Previous Rx's Medication Instructions Recorded omeprazole 40 mg PO DAILY #14 cap 09/03/17 Allergies Allergy/AdvReac Type Severity Reaction Status Date / Time No Known Drug Allergies Allergy Verified 06/26/19 11:55 Review of Systems <LASHELL Aragon - Last Filed: 06/26/19 22:12> Review of Systems Narrative: REVIEW OF SYSTEMS: GENERAL: Denies fever or chills. HENT: No head trauma. EYES: No loss of vision, double vision, eye pain, or irritation. CARDIOVASCULAR: No chest pain. RESPIRATORY: No shortness of breath or cough. GASTROINTESTINAL: No nausea, vomiting, diarrhea, or constipation. GENITOURINARY: No flank pain or dysuria. MUSCULOSKELETAL: No pain, weakness, or deformities. INTEGUMENTARY: No rash, lesions, or pruritus. NEURO: No numbness, tingling, memory loss, or confusion. Reports headache, see HPI. PSYCH: No behavior or mood changes. Patient History <LASHELL Aragon - Last Filed: 06/26/19 22:12> Medical History Anxiety (Chronic Unknown) Degenerative disc disease at L5-S1 level (Chronic Unknown) GERD (gastroesophageal reflux disease) (Chronic Unknown) Hx of intravenous drug use in remission (Resolved Unknown) Social History Smoking Status: Never smoker Smoking Status: Never smoker alcohol intake frequency: holidays/special occasions only Substance Use Type: does not use Exam <LASHELL Aragon - Last Filed: 06/26/19 22:12> Initial Vital Signs Initial Vital Signs: Vital Signs Temperature 99.5 F 06/26/19 11:49 Pulse Rate 101 H 06/26/19 11:49 Respiratory Rate 14 06/26/19 11:49 Blood Pressure 150/72 H 06/26/19 11:49 Pulse Oximetry 98 06/26/19 11:49 PHYSICAL EXAMINATION: GENERAL: Well groomed, alert, and cooperative. Anxious appearing. Answers questions promptly and appropriately. Vital signs noted. HENT: Normocephalic, atraumatic. Ear canals patent. Oral mucosa is pink and moist. Speech normal. EYES: PERRLA, EMOIs, Conjunctiva pink, sclera white, no periorbital swelling. NECK: No spinal tenderness. Full range of motion without pain. CHEST: Normal to inspection and without deformities. CARDIOVASCULAR: S1 and S2 sounds normal. Regular rate and rhythm, no murmurs, clicks, or bruits. No pedal edema. RESPIRATORY: Normal respiratory rate, trachea midline, airway patent. No stridor, nasal flaring or accessory muscle use. Lungs are clear in all wang without wheeze, rhonchi, or crackles. GASTROINTESTINAL: Bowel sounds normoactive. Abdomen is soft and non-tender. No organomegaly. MUSCULOSKELETAL: Normal gait and coordination. Equal tone and mass bilaterally. Equal strength to upper and lower extremities. EXTREMITIES: CMS intact. Moves all extremities. SKIN: Warm, dry, soft, appropriate color for ethnicity. No lesions, rashes, or wounds. NEURO: Alert and Oriented X 3. Good coordination. No ataxia, or sensory deficits, or cognitive issues. PSYCH: Appropriate affect and mood. <Ollie Ojeda MD - Last Filed: 06/27/19 19:34> Initial Vital Signs Initial Vital Signs: Vital Signs Temperature 99.5 F 06/26/19 11:49 Pulse Rate 101 H 06/26/19 11:49 Respiratory Rate 14 06/26/19 11:49 Blood Pressure 150/72 H 06/26/19 11:49 Pulse Oximetry 98 06/26/19 11:49 Scores <LASHELL Aragon - Last Filed: 06/26/19 22:12> NIH Stroke Scale Level of Conciousness: Alert, keenly responsive Ask month/age: Answers both questions correctly. Open/close eyes, close hand: Performs both tasks correctly Best gaze horizontal: Normal Visual wang: No visual loss Facial palsy: Normal symetrical movement Left arm drift: No drift for full 10 sec Right arm drift: No drift for full 10 sec Left leg drift: No drift for full 10 sec Right leg drift: No drift for full 10 sec Limb ataxia: Absent Sensory on face/arms/legs: Normal, no sensory loss Best language: No aphasia, normal Dysarthria: Normal Extinction or inattention: No abnormality Total NIH Stroke scale score: 0 Course <LASHELL Aragon - Last Filed: 06/26/19 22:12> Course Course Narrative: 1640: Patient sleeping, awoke to voice. States he is feeling much better in inserted home. I counseled patient about receiving extra dose of haloperidol to take this evening if his headache continues. Discussed the importance of follow-up. Orders Ordered: Discontinued Medications Diphenhydramine HCl (Benadryl) 25 mg IV NOW ONE Stop: 06/26/19 12:04 Last Admin: 06/26/19 12:53 Dose: 25 mg Documented by: LAMONT Haloperidol (Haldol) 2 mg IV NOW ONE Stop: 06/26/19 13:17 Last Admin: 06/26/19 13:21 Dose: 2 mg Documented by: SHAMIKA Haloperidol (Haldol) 2 mg PO NOW ONE Stop: 06/26/19 16:10 Last Admin: 06/26/19 16:23 Dose: 2 mg Documented by: LAMONT Sodium Chloride (Normal Saline 0.9%) 1,000 mls @ 1,000 mls/hr IV BOLUS ONE Stop: 06/26/19 13:02 Last Infusion: 06/26/19 15:15 Dose: 0 mls/hr Documented by: Infusion: 06/26/19 12:54 Dose: 500 mls/hr Documented by: Admin: 06/26/19 12:53 Dose: 1,000 mls/hr Documented by: LAMONT Lorazepam (Ativan) 1 mg IV NOW ONE Stop: 06/26/19 13:14 Last Admin: 06/26/19 13:35 Dose: Not Given Documented by: SHAMIKA Metoclopramide HCl (Reglan) 10 mg IV NOW ONE Stop: 06/26/19 12:04 Last Admin: 06/26/19 12:53 Dose: 10 mg Documented by: LAMONT Pantoprazole Sodium (Protonix) 40 mg IV NOW ONE Stop: 06/26/19 13:14 Last Admin: 06/26/19 13:21 Dose: 40 mg Documented by: SHAMIKA Vital Signs Vital signs: Vital Signs - 8 hr 06/26/19 15:10 06/26/19 16:23 Pulse Rate 63 82 Respiratory Rate 18 14 Blood Pressure [Left Arm] 108/64 114/62 Pulse Oximetry 98 100 <Ollie Ojeda MD - Last Filed: 06/27/19 19:34> Orders Ordered: Discontinued Medications Diphenhydramine HCl (Benadryl) 25 mg IV NOW ONE Stop: 06/26/19 12:04 Last Admin: 06/26/19 12:53 Dose: 25 mg Documented by: LAMONT Haloperidol (Haldol) 2 mg IV NOW ONE Stop: 06/26/19 13:17 Last Admin: 06/26/19 13:21 Dose: 2 mg Documented by: SHAMIKA Haloperidol (Haldol) 2 mg PO NOW ONE Stop: 06/26/19 16:10 Last Admin: 06/26/19 16:23 Dose: 2 mg Documented by: LAMONT Sodium Chloride (Normal Saline 0.9%) 1,000 mls @ 1,000 mls/hr IV BOLUS ONE Stop: 06/26/19 13:02 Last Infusion: 06/26/19 15:15 Dose: 0 mls/hr Documented by: Infusion: 06/26/19 12:54 Dose: 500 mls/hr Documented by: Admin: 06/26/19 12:53 Dose: 1,000 mls/hr Documented by: LAMONT Lorazepam (Ativan) 1 mg IV NOW ONE Stop: 06/26/19 13:14 Last Admin: 06/26/19 13:35 Dose: Not Given Documented by: SHAMIKA Metoclopramide HCl (Reglan) 10 mg IV NOW ONE Stop: 06/26/19 12:04 Last Admin: 06/26/19 12:53 Dose: 10 mg Documented by: LAMOTN Pantoprazole Sodium (Protonix) 40 mg IV NOW ONE Stop: 06/26/19 13:14 Last Admin: 06/26/19 13:21 Dose: 40 mg Documented by: SHAMIKA Vital Signs Vital signs: Vital Signs - 8 hr 06/26/19 15:10 06/26/19 16:23 Pulse Rate 63 82 Respiratory Rate 18 14 Blood Pressure [Left Arm] 108/64 114/62 Pulse Oximetry 98 100 MDM - Headache <LASHELL Aragon - Last Filed: 06/26/19 22:12> Medical Records Attestation: I reviewed the patient's medical records. Lab Data Attestation: I reviewed the patient's lab results. Result diagrams: 06/26/19 15:04 06/26/19 15:04 Labs: Lab Results 06/26/19 06/26/19 06/26/19 Range/Units 15:04 15:04 15:04 WBC 10.9 (4.5-11.0) X10^3/uL RBC 4.75 (4.5-5.9) X10^6/uL Hgb 14.1 (13.5-17.5) g/dL Hct 40.4 L (41-53) % MCV 85.1 (80-100) fL MCH 29.6 (26-34) PG MCHC 34.8 (30-36) % RDW 13.4 (11.6-14.8) % Plt Count 245 (150-400) X10^3/uL Neut % (Auto) 75.8 H (50-75) % Lymph % (Auto) 17.1 L (25-40) % [place] % (Auto) 6.5 (3-14) % Eos % (Auto) 0.1 L (2-4) % Baso % (Auto) 0.5 (0-2) % Neut # (Auto) 8200 H (0539-8771) /uL Lymph # (Auto) 1900 (1034-8557) /uL [place] # (Auto) 700 (0-900) /uL Eos # (Auto) 0 (0-450) /uL Baso # (Auto) 100 (0-100) /uL ESR (0-15) MM/HR Sodium 144 (137-145) mmol/L Potassium 3.7 (3.4-5.1) mmol/L Chloride 111 H (98-107) mmol/L Carbon Dioxide 23 (22-32) mmol/L BUN 14 (9-20) mg/dL Creatinine 0.67 (0.66-1.25) mg/dL Estimated GFR > 60.0 (>60) mL/min BUN/Creatinine Ratio 20.9 (6-22) Glucose 88 (70-100) mg/dL Calcium 9.1 (8.4-10.2) mg/dL Total Bilirubin 1.4 H (0.2-1.3) mg/dL AST 53 (17-59) IU/L ALT 13 (<50) IU/L Alkaline Phosphatase 62 (38-126) U/L C-Reactive Protein (<1.0) mg/dL Total Protein 7.6 (6.3-8.2) g/dL Albumin 4.5 (3.5-5.0) g/dL Globulin 3.1 (1.7-4.1) g/dL Albumin/Globulin Ratio 1.5 (1.0-2.8) Procalcitonin < 0.05 (<0.5) ng/mL 06/26/19 06/26/19 Range/Units 15:04 15:04 WBC (4.5-11.0) X10^3/uL RBC (4.5-5.9) X10^6/uL Hgb (13.5-17.5) g/dL Hct (41-53) % MCV (80-100) fL MCH (26-34) PG MCHC (30-36) % RDW (11.6-14.8) % Plt Count (150-400) X10^3/uL Neut % (Auto) (50-75) % Lymph % (Auto) (25-40) % [place] % (Auto) (3-14) % Eos % (Auto) (2-4) % Baso % (Auto) (0-2) % Neut # (Auto) (9257-6816) /uL Lymph # (Auto) (0019-9488) /uL [place] # (Auto) (0-900) /uL Eos # (Auto) (0-450) /uL Baso # (Auto) (0-100) /uL ESR 10 (0-15) MM/HR Sodium (137-145) mmol/L Potassium (3.4-5.1) mmol/L Chloride (98-107) mmol/L Carbon Dioxide (22-32) mmol/L BUN (9-20) mg/dL Creatinine (0.66-1.25) mg/dL Estimated GFR (>60) mL/min BUN/Creatinine Ratio (6-22) Glucose (70-100) mg/dL Calcium (8.4-10.2) mg/dL Total Bilirubin (0.2-1.3) mg/dL AST (17-59) IU/L ALT (<50) IU/L Alkaline Phosphatase (38-126) U/L C-Reactive Protein < 0.5 (<1.0) mg/dL Total Protein (6.3-8.2) g/dL Albumin (3.5-5.0) g/dL Globulin (1.7-4.1) g/dL Albumin/Globulin Ratio (1.0-2.8) Procalcitonin (<0.5) ng/mL Imaging Data CT scan - head: Radiologist's Impression: [place] [id number] CT Scan Report Signed Patient: Paulino Keyes RMR#: [id number] : 1975Acct:[id number] Age/Sex: 43 / MDate of Service: 06/26/19 Loc: ED Accession Number: [id number] Procedure: CT head/brain wo con Ordering Provider: Reva Dhillon PROCEDURE: CT HEAD/BRAIN WO CON INDICATIONS: Worsening severity of headache TECHNIQUE: Noncontrast 4.5 mm thick angled axial sections acquired from the foramen magnum to the vertex, with coronal and sagittal reformats. For radiation dose reduction, the following was used: automated exposure control, adjustment of mA and/or kV according to patient size. COMPARISON: None. FINDINGS: Image quality: Excellent. CSF spaces: Basal cisterns are patent. No extra-axial fluid collections. Ventricles are normal in size and shape. Brain: No midline shift. No intracranial masses or hemorrhage. Herrera-white matter interface is normal. Skull and face: Calvarium and visualized facial bones are intact, without suspicious lesions. Sinuses: Visualized sinuses and mastoids are clear. IMPRESSION: 1. No acute intracranial process. Dictated by: Merari Waldron M.D. on 06/26/2019 at 13:45 Approved by: Merari Waldron M.D. on 06/26/2019 at 13:46 [facility] Narrative Medical decision making narrative: 43-year-old male with a history of headache presenting to the emergency department for an ongoing headache. Tachycardia and a temperature of 99.5F, has history of IV drug use, and reports ongoing headache despite past visit this week in the emergency department. Laboratory work and CT due to continued complaint and vital signs upon admission. Patient reported significantly reduce symptoms after administration of medicati ons. Differential includes migraine (most likely due to chronic symptoms, resolution of symptoms after administration medication, and unremarkable test results). Additionally, I believe patient's headache is exacerbated by his recent reduced in methadone which can increase pain syndrome such as migraine. Less likely tumor or large intracranial bleed due to negative head CT and normal neurological exam. Less likely CVA due to lack of focal neurological findings, resolution of symptoms after medication administration. Less likely inflammatory such as temporal arteritis (patient originally compl aining of bilateral temporal pain and put it to his yazidism area) as CRP and sed rate are within normal limits. White blood cell count is non-remarkable. Less likely meningitis or spinal infection due to lack of fever, no neck pain, normal white blood cell count, and afebrile. Patient was encouraged to follow up with his primary care provider within the next week to discuss migraine management and management of methadone. Patient agreed to plan of care verbalized understanding. Strict return precautions given for new or worsening symptoms. <Ollie Ojeda MD - Last Filed: 06/27/19 19:34> Lab Data Labs: Lab Results 06/26/19 06/26/19 06/26/19 Range/Units 15:04 15:04 15:04 WBC 10.9 (4.5-11.0) X10^3/uL RBC 4.75 (4.5-5.9) X10^6/uL Hgb 14.1 (13.5-17.5) g/dL Hct 40.4 L (41-53) % MCV 85.1 (80-100) fL MCH 29.6 (26-34) PG MCHC 34.8 (30-36) % RDW 13.4 (11.6-14.8) % Plt Count 245 (150-400) X10^3/uL Neut % (Auto) 75.8 H (50-75) % Lymph % (Auto) 17.1 L (25-40) % [place] % (Auto) 6.5 (3-14) % Eos % (Auto) 0.1 L (2-4) % Baso % (Auto) 0.5 (0-2) % Neut # (Auto) 8200 H (4054-1045) /uL Lymph # (Auto) 1900 (3070-4375) /uL [place] # (Auto) 700 (0-900) /uL Eos # (Auto) 0 (0-450) /uL Baso # (Auto) 100 (0-100) /uL ESR (0-15) MM/HR Sodium 144 (137-145) mmol/L Potassium 3.7 (3.4-5.1) mmol/L Chloride 111 H (98-107) mmol/L Carbon Dioxide 23 (22-32) mmol/L BUN 14 (9-20) mg/dL Creatinine 0.67 (0.66-1.25) mg/dL Estimated GFR > 60.0 (>60) mL/min BUN/Creatinine Ratio 20.9 (6-22) Glucose 88 (70-100) mg/dL Calcium 9.1 (8.4-10.2) mg/dL Total Bilirubin 1.4 H (0.2-1.3) mg/dL AST 53 (17-59) IU/L ALT 13 (<50) IU/L Alkaline Phosphatase 62 (38-126) U/L C-Reactive Protein (<1.0) mg/dL Total Protein 7.6 (6.3-8.2) g/dL Albumin 4.5 (3.5-5.0) g/dL Globulin 3.1 (1.7-4.1) g/dL Albumin/Globulin Ratio 1.5 (1.0-2.8) Procalcitonin < 0.05 (<0.5) ng/mL 06/26/19 06/26/19 Range/Units 15:04 15:04 WBC (4.5-11.0) X10^3/uL RBC (4.5-5.9) X10^6/uL Hgb (13.5-17.5) g/dL Hct (41-53) % MCV (80-100) fL MCH (26-34) PG MCHC (30-36) % RDW (11.6-14.8) % Plt Count (150-400) X10^3/uL Neut % (Auto) (50-75) % Lymph % (Auto) (25-40) % [place] % (Auto) (3-14) % Eos % (Auto) (2-4) % Baso % (Auto) (0-2) % Neut # (Auto) (9885-1415) /uL Lymph # (Auto) (6794-0927) /uL [place] # (Auto) (0-900) /uL Eos # (Auto) (0-450) /uL Baso # (Auto) (0-100) /uL ESR 10 (0-15) MM/HR Sodium (137-145) mmol/L Potassium (3.4-5.1) mmol/L Chloride (98-107) mmol/L Carbon Dioxide (22-32) mmol/L BUN (9-20) mg/dL Creatinine (0.66-1.25) mg/dL Estimated GFR (>60) mL/min BUN/Creatinine Ratio (6-22) Glucose (70-100) mg/dL Calcium (8.4-10.2) mg/dL Total Bilirubin (0.2-1.3) mg/dL AST (17-59) IU/L ALT (<50) IU/L Alkaline Phosphatase (38-126) U/L C-Reactive Protein < 0.5 (<1.0) mg/dL Total Protein (6.3-8.2) g/dL Albumin (3.5-5.0) g/dL Globulin (1.7-4.1) g/dL Albumin/Globulin Ratio (1.0-2.8) Procalcitonin (<0.5) ng/mL Discharge Plan Departure Patient Disposition: Home Clinical Impression: Headache Qualifiers: Headache type: unspecified Headache chronicity pattern: acute headache Intractability: not intractable Qualified Code(s): R51 - Headache Discharge Date/Time: 06/26/19 16:27 Instructions: DI for Headache Activity Restrictions/Additional Instructions: Thank you for entrusting me with your care today. As discussed, your head CT is negative for any concerning findings. Your laboratory work is non-remarkable. I am unsure the exact cause of your headache, decreasing your methadone to quickly may contribute to this. Please follow-up with your methadone provider to discuss a plan if your headaches continue. Follow up with your primary care provider as well to discuss further headache management. I have given you a dose of haloperidol to take this evening before bed if your headache continues. Try to avoid taking daily aspirin and ibuprofen as this could cause stomach irritation. Take Tylenol as needed for pain. Return emergency department for any new or worsening symptoms such as severe pain, vision changes, uncontrollable vomiting, or any other concerns. Prescriptions: No Action bismuth subsalicylate [Pepto-Bismol] 262 mg/15 mL Suspension 30 ml PO BID PRN (Reason: Diarrhea) RF: 0 omeprazole 40 mg capsule,delayed release(DR/EC) 40 mg PO DAILY Qty: 14 RF: 0
[2019-06-26] MEDS: PANTOPRAZOLE 40 MG VIAL IV (13:21)
[2019-06-26] MEDS: HALOPERIDOL 5 MG/ML VIAL 2 MG IV (13:21)
--- NOTE | 2019-06-26 13:29 | DI.CT.S_ITS ---
PROCEDURE: CT HEAD/BRAIN WO CON INDICATIONS: Worsening severity of headache TECHNIQUE: Noncontrast 4.5 mm thick angled axial sections acquired from the foramen magnum to the vertex, with coronal and sagittal reformats. For radiation dose reduction, the following was used: automated exposure control, adjustment of mA and/or kV according to patient size. COMPARISON: None. FINDINGS: Image quality: Excellent. CSF spaces: Basal cisterns are patent. No extra-axial fluid collections. Ventricles are normal in size and shape. Brain: No midline shift. No intracranial masses or hemorrhage. Herrera-white matter interface is normal. Skull and face: Calvarium and visualized facial bones are intact, without suspicious lesions. Sinuses: Visualized sinuses and mastoids are clear. IMPRESSION: 1. No acute intracranial process. Dictated by: Merari Waldron M.D. on 06/26/2019 at 13:45 Approved by: Merari Waldron M.D. on 06/26/2019 at 13:46
[2019-06-26 15:10] VITALS: BP 108/64; PULSE 63; RESP 18; O2SAT 98
[2019-06-26 15:16] LABS: Add Manual Diff / Slide Review NO; Basophils Absolute Auto 100 /uL (0-100); Basophils Percent Auto 0.5 % (0-2); Eosinophils Absolute Auto 0 /uL (0-450); Eosinophils Percent Auto 0.1 % (2-4); Hematocrit 40.4 % (41-53); Hemoglobin 14.1 g/dL (13.5-17.5); Lymphocytes Absolute Auto 1900 /uL (1100-4500); Lymphocytes Percent Auto 17.1 % (25-40); Mean Corpuscular HGB Conc 34.8 % (30-36); Mean Corpuscular Hemoglobin 29.6 PG (26-34); Mean Corpuscular Volume 85.1 fL (80-100); Monocytes Absolute Auto 700 /uL (0-900); Monocytes Percent Auto 6.5 % (3-14); Neutrophils Absolute Auto 8200 /uL (1500-7000); Neutrophils Percent Auto 75.8 % (50-75); Platelet Count 245 X10^3/uL (150-400); Red Blood Cell Count 4.75 X10^6/uL (4.5-5.9); Red Cell Distribution Width 13.4 % (11.6-14.8); White Blood Cell Count 10.9 X10^3/uL (4.5-11.0)
[2019-06-26 15:41] LABS: Erythrocyte Sedimentation Rate 10 MM/HR (0-15)
[2019-06-26 15:43] LABS: Alanine Aminotransferase 13 IU/L (<50); Albumin 4.5 g/dL (3.5-5.0); Albumin Globulin Ratio 1.5 (1.0-2.8); Alkaline Phosphatase 62 U/L (38-126); Aspartate Aminotransferase 53 IU/L (17-59); BUN Creatinine Ratio 20.9 (6-22); Bilirubin Total 1.4 mg/dL (0.2-1.3); Blood Urea Nitrogen 14 mg/dL (9-20); Calcium 9.1 mg/dL (8.4-10.2); Carbon Dioxide 23 mmol/L (22-32); Chloride 111 mmol/L (98-107); Estimated Glomerular Filt Rate > 60.0 mL/min (>60); Globulin 3.1 g/dL (1.7-4.1); Glucose 88 mg/dL (70-100); HEMOLYSIS 30 (0-50); Potassium 3.7 mmol/L (3.4-5.1); Sodium 144 mmol/L (137-145); Total Protein 7.6 g/dL (6.3-8.2)
[2019-06-26 15:50] LABS: C-Reactive Protein Quant < 0.5 mg/dL (<1.0)
[2019-06-26 16:23] VITALS: BP 114/62; PULSE 82; RESP 14; O2SAT 100
[2019-06-26] MEDS: haloperidoL 1 MG TABLET 2 MG PO (16:23)
[2019-06-26 17:00] LABS: Procalcitonin < 0.05 ng/mL (<0.5)
== END 2019-06-26 16:27 | disposition home or self-care (01) ==
PROVIDERS: Emergency Medicine; Emergency Provider Nurse Practitioner
DX: R51 Headache (principal); R00.0 Tachycardia, unspecified
CPT/HCPCS: 36415; 70450; 80053; 84145; 85025; 85651; 86140; 96361; 96374; 96375; 99284; C9113; J1200; J1630; J2765

== ENCOUNTER 2019-10-17 12:32 | Emergency (ER) | payer OTHER, MEDICAID, SELFPAY ==
--- NOTE | 2019-10-17 12:48 | PC.NURSE ---
Called @ [phone] w/ no answer from waiting room.
[2019-10-17 13:00] VITALS: BP 139/69; PULSE 69; RESP 14; TEMP 36.6; O2SAT 100
--- NOTE | 2019-10-17 14:05 | CM.SWNOTE ---
Addendum entered by JORDAN Edmonds 10/17/19 14:16: ADD: Per previous SW notes from pt's last admission to [facility] for cellulitis in 2018, pt has a long hx of IV-heroin and occasional meth use and has a hx of completing Inpt CD tx in [place] about 10 years ago and has utilized outpt CD tx at [facility] and MAT tx at [facility] for Methadone since 2018. Pt with a legal hx of court involvement due to being found in possession of illegal substances. Pt has two supportive local sisters as well. BF Original Note: Possible Detox need Patient is a 43 year old male who arrived to [facility] ER on 10/17/19 for possible detox need. Pt has [employer] and [employer] for insurance. [employer] Consult received for medical clearance for detox. Per ELANA Buckley, pt in ER waiting room and has not been assessed by MD yet or labs completed but pt states that he used heroin on 10/15/19 and his housing director is requesting that pt go to detox bed before being accepted back to his apartment. Although pt also states he is prescribed Methadone as Medication Assisted Treatment option and he received his methadone dose today already and is planning to go to [facility] in [place] once seen by ER MD. SW called [facility] in [place] and confirmed that pt has completed phone assessment with [facility] staff and they have multiple bed availability for today and just waiting for pt to be medically cleared by MD and to review his clinicals to confirm they can accept. SW updated ELANA Buckley and she will triage pt into the ER to get his labs and MD note to [facility] to review. JORDAN Edmonds
[2019-10-17 14:13] LABS: UR Morphine/Opiate cutoff 300 Positive (Negative); Ur Creatinine Normal (Normal); Ur Specific Gravity Normal (Normal); Urine Amphetamines Negative (Negative); Urine Barbiturates Negative (Negative); Urine Benzodiazepines Negative (Negative); Urine Cocaine Negative (Negative); Urine MDMA Negative (Negative); Urine Methadone Positive (Negative); Urine Methamphetamines Negative (Negative); Urine Oxycodone Negative (Negative); Urine Phencyclidine Negative (Negative); Urine Tetrahydrocannabinol Negative (Negative); Urine Tricyclic Antidepressant Negative (Negative); Urine pH Normal (Normal)
--- NOTE | 2019-10-17 15:48 | PC.NURSE ---
Multiple attempts by lab and this RN to draw blood w/o success.
--- NOTE | 2019-10-17 17:24 | ED_ITS ---
HPI - Medical Clearance <ORALIA Beasley - Last Filed: 10/17/19 19:14> General Chief complaint: Medical Clearance Stated complaint: Medical Clearance for Detox Time Seen by Provider: 10/17/19 15:50 Source: patient Mode of arrival: Ambulatory Limitations: no limitations History of Present Illness HPI Narrative: The patient is a 43-year-old male former smoker with history of heroin use who presents with a chief complaint of needing clearance for detox. He denies any symptoms of cold including fever cough congestion or known exposure. He states he has been a heroin addict for a long time, currently is in a methadone program and has a counselor. Unfortunately he relapse this weekend and is at risk of losing his housing if he does not go to detox today. There is a bed at [facility] available to knees already done his entrance interview. He denies any other substance abuse issues. He denies any thoughts of hurting himself or anybody else. Patient takes methadone, 40 mg daily prescribed by outside clinic. Related Information Home Medications Medication Instructions Recorded Confirmed methadone 40 mg PO DAILY 10/17/19 10/17/19 Allergies Allergy/AdvReac Type Severity Reaction Status Date / Time No Known Drug Allergies Allergy Verified 10/17/19 13:04 Review of Systems <ORALIA Beasley - Last Filed: 10/17/19 19:14> Review of Systems Narrative: GENERAL: Denies chills, fatigue, malaise, fever, sweats. HEENT: Denies sinus pain, ear pain, sore throat, difficulty swallowing, dizziness. RESPIRATORY: Denies dyspnea, cough, wheezing, hemoptysis, sputum. CARDIOVASCULAR: Denies chest pain, palpitations, orthopnea, edema, GASTROINTESTINAL: Denies nausea, vomiting, abdominal pain, diarrhea, constipation, melena. : Denies dysuria, frequency, incontinence, hematuria, urinary retention. MUSCULOSKELETAL: denies weakness, joint pain, or bony pain SKIN: Denies rash, skin lesions, or other NEUROLOGIC: Denies weakness, headache, numbness, change in speech, confusion, seizures, incoordination. PSYCHIATRIC: See HPI 12 point review of systems is negative except for those stated above Patient History <ORALIA Beasley - Last Filed: 10/17/19 19:14> Medical History Anxiety (Chronic Unknown) Degenerative disc disease at L5-S1 level (Chronic Unknown) GERD (gastroesophageal reflux disease) (Chronic Unknown) Hx of intravenous drug use in remission (Resolved Unknown) Social History Smoking Status: Former smoker Smoking Status: Former smoker alcohol intake frequency: holidays/special occasions only Substance Use Type: heroin Exam <ORALIA Beasley - Last Filed: 10/17/19 19:14> Narrative Exam Narrative: GENERAL: This is a well-nourished, well-developed patient, no acute distress HEAD: Atraumatic. Normocephalic. No temporal or scalp tenderness. EYES: Pupils equal round and reactive. Extraocular motions intact. No scleral icterus. No injection or drainage. ENT: Nose without bleeding, purulent drainage or septal hematoma. Wearing a mask Airway patent. NECK: Trachea midline. No JVD or lymphadenopathy. Supple, nontender, no meningeal signs. CARDIOVASCULAR: Regular rate and rhythm RESPIRATORY: Clear to auscultation. Breath sounds equal bilaterally. No wheezes, rales, or rhonchi. No cough. No increased respiratory effort. No accessory muscle use. GASTROINTESTINAL: Abdomen soft, non-tender, nondistended. No hepato- splenomegaly, or palpable masses. No guarding. EXTREMITIES: No clubbing, cyanosis, or edema. No joint tenderness, effusion, or edema noted. BACK: Nontender without deformity or crepitance. No flank tenderness. NEURO: AOx3. SKIN: No rash or erythema on visible skin Initial Vital Signs Initial Vital Signs: Vital Signs Temperature 97.8 F 10/17/19 13:00 Pulse Rate 69 10/17/19 13:00 Respiratory Rate 14 10/17/19 13:00 Blood Pressure 139/69 10/17/19 13:00 Pulse Oximetry 100 10/17/19 13:00 <Meggan Sultana MD - Last Filed: 10/25/19 08:25> Initial Vital Signs Initial Vital Signs: Vital Signs Temperature 97.8 F 10/17/19 13:00 Pulse Rate 69 10/17/19 13:00 Respiratory Rate 14 10/17/19 13:00 Blood Pressure 139/69 10/17/19 13:00 Pulse Oximetry 100 10/17/19 13:00 Scores <FLAVIO BeasleyP-BC - Last Filed: 10/17/19 19:14> GCS [place] coma scale eye opening: Spontaneous [place] coma scale verbal response: Orientated [place] coma scale motor response: Obey commands Ashwin coma scale total score: 15 MDM - Medical Clearance <FLAVIO BeasleyP-BC - Last Filed: 10/17/19 19:14> Lab Data Labs: Lab Results 10/17/19 Range/Units 13:30 U Opiates 300ng/mL cut Positive H (Negative) Ur Oxycodone Screen Negative (Negative) Urine Methadone Screen Positive H (Negative) Ur Barbiturates Screen Negative (Negative) U Tricyclic Antidepress Negative (Negative) Ur Phencyclidine Scrn Negative (Negative) Ur Amphetamines Screen Negative (Negative) U Methamphetamines Scrn Negative (Negative) Ur MDMA Scrn (Ecstasy) Negative (Negative) U Benzodiazepines Scrn Negative (Negative) Urine Cocaine Screen Negative (Negative) U Marijuana (THC) Screen Negative (Negative) Urine Dip Bedside Urine Glucose Negative Bedside Urine Bilirubin - Negative Bedside Urine Ketone - Negative Urine Specific [place] 1.020 Bedside Urine Occult Blood - Negative Bedside Urine pH 6.0 Bedside Urine Protein - Negative Bedside Urine Urobilinogen - Negative Bedside Urine Nitrite - Negative Bedside Urine Leukocytes - Negative Esterase [facility] Narrative Medical decision making narrative: The patient is a 43-year-old male who presents requesting medical clearance for detox. Unfortunately despite several attempts, right unable to obtain blood from this patient for screening lab work. However he is medically clear given my exam. He does not have any signs or symptoms of coronavirus. He denies any thoughts of hurting himself or anybody else. He is medically cleared for detox. Unfortunately [facility] detox does not accept the patient as they need pre from his methadone clinic of his dose etcetera. They also not take him because only wants to stay 1 night. However, the [facility] is willing to take the patient back if his mother stays in his apartment with him so that he does not use any more heroin. This is acceptable to the patient and he is subsequently discharged back to the [facility]. He states understanding of return precautions of any acute concerns, thoughts of hurting himself or anybody else and states he will follow up with his counselor tomorrow morning. Patient has no questions or concerns upon discharge and states understanding return precautions as well as follow-up care. <Meggan Sultana MD - Last Filed: 10/25/19 08:25> Lab Data Labs: Lab Results 10/17/19 Range/Units 13:30 U Opiates 300ng/mL cut Positive H (Negative) Ur Oxycodone Screen Negative (Negative) Urine Methadone Screen Positive H (Negative) Ur Barbiturates Screen Negative (Negative) U Tricyclic Antidepress Negative (Negative) Ur Phencyclidine Scrn Negative (Negative) Ur Amphetamines Screen Negative (Negative) U Methamphetamines Scrn Negative (Negative) Ur MDMA Scrn (Ecstasy) Negative (Negative) U Benzodiazepines Scrn Negative (Negative) Urine Cocaine Screen Negative (Negative) U Marijuana (THC) Screen Negative (Negative) Urine Dip Bedside Urine Glucose Negative Bedside Urine Bilirubin - Negative Bedside Urine Ketone - Negative Urine Specific [place] 1.020 Bedside Urine Occult Blood - Negative Bedside Urine pH 6.0 Bedside Urine Protein - Negative Bedside Urine Urobilinogen - Negative Bedside Urine Nitrite - Negative Bedside Urine Leukocytes - Negative Esterase Discharge Plan Departure Patient Disposition: Home Clinical Impression: Heroin use Discharge Date/Time: 10/17/19 18:45 Instructions: DI for Substance Use Disorder, DI for Drug or Alcohol Withdrawal Activity Restrictions/Additional Instructions: Thank you for trusting us with your care today Please follow-up with your care providers tomorrow Please come back to emergency department for any acute concerns such as thoughts of hurting herself or anybody else etcetera Prescriptions: No Action methadone 40 mg Tablet,Soluble 40 mg PO DAILY RF: 0 <Meggan Sultana MD - Last Filed: 10/25/19 08:25> Cosign ED Attending Cosignature Attestation: I was immediately available in the department for consultation throughout this patient's visit. I agree with documentation as above. Meggan Sultana MD
[2019-10-17 17:36] VITALS: BP 128/80; PULSE 78; O2SAT 99
== END 2019-10-17 18:45 | disposition home or self-care (01) ==
PROVIDERS: Emergency Medicine; Emergency Provider Nurse Practitioner Family
DX: F11.90 Opioid use, unspecified, uncomplicated (principal)
CPT/HCPCS: 80305; 81003; 99282

== ENCOUNTER → 2020-05-21 18:12 | Outpatient (CLI) | payer OTHER, MEDICAID, SELFPAY ==
[2020-05-21 18:43] LABS: Add Manual Diff / Slide Review NO; Basophils Absolute Auto 100 /uL (0-100); Basophils Percent Auto 1.3 % (0-2); Eosinophils Absolute Auto 400 /uL (0-450); Eosinophils Percent Auto 5.5 % (2-4); Hematocrit 40.8 % (41-53); Hemoglobin 14.2 g/dL (13.5-17.5); Lymphocytes Absolute Auto 2800 /uL (1100-4500); Lymphocytes Percent Auto 35.3 % (25-40); Mean Corpuscular HGB Conc 34.7 % (30-36); Mean Corpuscular Hemoglobin 29.7 PG (26-34); Mean Corpuscular Volume 85.7 fL (80-100); Monocytes Absolute Auto 500 /uL (0-900); Monocytes Percent Auto 6.2 % (3-14); Neutrophils Absolute Auto 4200 /uL (1500-7000); Neutrophils Percent Auto 51.7 % (50-75); Platelet Count 217 X10^3/uL (150-400); Red Blood Cell Count 4.77 X10^6/uL (4.5-5.9); Red Cell Distribution Width 13.2 % (11.6-14.8); White Blood Cell Count 8.1 X10^3/uL (4.5-11.0)
[2020-05-21 18:55] LABS: Alanine Aminotransferase 20 IU/L (<50); Albumin 4.7 g/dL (3.5-5.0); Albumin Globulin Ratio 1.5 (1.0-2.8); Alkaline Phosphatase 73 U/L (38-126); Aspartate Aminotransferase 34 IU/L (17-59); BUN Creatinine Ratio 25.3 (6-22); Bilirubin Total 0.8 mg/dL (0.2-1.3); Blood Urea Nitrogen 22 mg/dL (9-20); Calcium 9.5 mg/dL (8.4-10.2); Carbon Dioxide 25 mmol/L (22-32); Chloride 104 mmol/L (98-107); Estimated Glomerular Filt Rate > 60.0 mL/min (>60); Globulin 3.2 g/dL (1.7-4.1); Glucose 91 mg/dL (70-100); HEMOLYSIS 17 (0-50); Potassium 3.8 mmol/L (3.4-5.1); Sodium 137 mmol/L (137-145); Total Protein 7.9 g/dL (6.3-8.2)
[2020-05-21 19:29] LABS: Testosterone 82 ng/dL (132-813)
[2020-05-21 19:53] LABS: Hepatitis B Surface Antigen NEGATIVE s/c (NEGATIVE)
[2020-05-21 20:36] LABS: Hep C Virus Ab w/Reflex Quant REACTIVE s/c (NEGATIVE)
[2020-05-23 14:12] LABS: Hepatitis A Antibody IgM Negative (Negative); Hepatitis B Core Antibody Negative (Negative); Hepatitis B Surf Ab Qualitativ Reactive (.)
[2020-05-23 18:35] LABS: Testosterone, Free 5.1 pg/mL (6.8-21.5)
== END ==
PROVIDERS: Referring Provider Nurse Practitioner Family; Visit Provider Nurse Practitioner Family
DX: R53.83 Other fatigue (principal); R94.8 Abnormal results of function studies of other organs and systems; B18.2 Chronic viral hepatitis C; K71.9 Toxic liver disease, unspecified
CPT/HCPCS: 36415; 80053; 84402; 84403; 85025; 86704; 86706; 86709; 86803; 87340; 87522

== ENCOUNTER 2020-06-27 12:27 | Emergency (ER) | payer OTHER, MEDICAID, SELFPAY ==
[2020-06-27 12:34] VITALS: BP 132/79; PULSE 74; RESP 16; TEMP 37; O2SAT 99; BMI 33.7
--- NOTE | 2020-06-27 12:38 | ED_ITS ---
HPI - Extremity Injury (Upper) General Chief Complaint: Extremity Injury, Upper Stated Complaint: left elbow pain swelling after a blood draw ongoin Time Seen by Provider: 06/27/20 12:30 Source: patient Mode of arrival: Ambulatory Limitations: no limitations History of Present Illness HPI narrative: 44-year-old male former smoker with history of drug abuse presents with a chief complaint of pain at his lateral elbow for the past few weeks. He states he thinks it started after he had a blood draw in the region. He states that there is pain and swelling this not getting better and seems to be worse with motion and improves with rest. He denies any traumatic injury. He has had no redness or swelling that is significant. He denies any numbness, tingling or weakness. He denies any history of the same. He does work as a rv mechanic and overuse syndromes are a concern. MD complaint: injury to: left Onset (ago): week(s) Other injuries: none Handedness: right Severity: moderate Relieving factors: none Exacerbating factors: none Related Data Home Medications Medication Instructions Recorded Confirmed methadone 40 mg soluble tablet 35 mg PO DAILY tab 05/30/20 05/30/20 Previous Rx's Medication Instructions Recorded ketorolac 10 mg PO Q6H PRN #14 tab 06/27/20 Allergies Allergy/AdvReac Type Severity Reaction Status Date / Time No Known Drug Allergies Allergy Verified 05/30/20 11:45 Review of Systems Constitutional Constitutional: Denies chills, Denies fatigue, Denies fever(s), Denies frequent falls, Denies lethargy and Denies weakness Eyes Eyes: Denies change in vision, Denies eye discharge, Denies irritation and Denies loss of vision ENT Ears, Nose, Mouth, and Throat: Denies change in voice, Denies dizziness, Denies neck pain, Denies sore throat and Denies throat swelling Cardiovascular Cardiovascular: Denies chest pain, Denies irregular heart rhythm, Denies lightheadedness, Denies palpitations, Denies dyspnea, Denies dyspnea on exertion and Denies orthopnea Respiratory Respiratory: Denies cough, Denies dyspnea, Denies dyspnea on exertion and Denies wheezing Gastrointestinal Gastrointestinal: Denies abdominal pain, Denies change in bowel habits, Denies diarrhea, Denies nausea and Denies vomiting Musculoskeletal Musculoskeletal: Denies neck pain and Denies numbness Integumentary/Breasts Skin/Breast: Denies pruritus, Denies erythema, Denies rash and Denies wounds Neurologic Neurologic: Denies behavioral changes, Denies confusion, Denies dizziness, Denies frequent falls, Denies loss of vision, Denies numbness and Denies weakness Psychiatric Psychiatric: Denies anxiety, Denies behavioral changes, Denies confusion, Denies depression, Denies homicidal ideation and Denies suicidal ideation Endocrine Endocrine: Denies fatigue, Denies flushing and Denies palpitations Hematologic/Lymphatic Hematologic/Lymphatic: Denies easy bruising Allergic/Immunologic Allergic/Immunologic: Denies urticaria, Denies throat swelling and Denies wheezing Patient History Medical History Anxiety (Unknown) Degenerative disc disease at L5-S1 level (Unknown) GERD (gastroesophageal reflux disease) (Unknown) 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) Family History Family/Other Loud snoring Obesity Hypertension Heart disease Depression Anxiety Alcohol abuse Father Loud snoring Alcohol abuse Substance abuse Mother Loud snoring Sleep apnea Insomnia Obesity Hypertension Heart disease Depression Anxiety Alcohol abuse Substance abuse Family/Other Loud snoring Insomnia Anxiety Depression Alcohol abuse Substance abuse Family/Other Depression Anxiety Alcohol abuse Social History Smoking Status: Former smoker Smoking Status: Former smoker alcohol intake frequency: holidays/special occasions only Substance Use Type: heroin Exam Narrative Exam Narrative: GEN: AOx3 and in mild distress EYES: Pupils are equal, round, and reactive to light and accommodation. Extraoccular muscles are intact bilaterally. There is no subconjunctival hemorrhage or exudate. CHEST: Lungs are clear to auscultation bilaterally and free of wheezes, rales, or rhonchi. Heart rate is regular rhythm, there are no murmurs, clicks, rubs, or gallops. There is no chest wall tenderness. ABD: Abdomen is soft and nontender. There is no guarding or rebound. Bowel sounds are normal in all 4 quadrants. There is no mass or organomegaly. EXT: Tenderness to palpation of lateral condyle of left elbow, no obvious swelling, redness, warmth, induration or fluctuance. Pain increases with active wrist extension. Forearm compartments are soft and nontender. Sensation is intact, cap refill less than 2 seconds. Full painless ROM of all extremities with no loss of sensation or strength. SKIN: Warm, pink, and dry. No erythema or rash Initial Vital Signs Initial Vital Signs: Vital Signs Temperature 98.6 F 06/27/20 12:34 Pulse Rate 74 06/27/20 12:34 Respiratory Rate 16 06/27/20 12:34 Blood Pressure 132/79 06/27/20 12:34 Pulse Oximetry 99 06/27/20 12:34 Course Vital Signs Vital signs: Vital Signs - 8 hr 06/27/20 12:34 Temperature 98.6 F Pulse Rate 74 Respiratory Rate 16 Blood Pressure 132/79 Pulse Oximetry 99 MDM - Extremity Injury (Upper) MDM Narrative Medical decision making narrative: Multiple etiologies for patient's symptoms considered including: [Overuse syndrome versus superficial thrombophlebitis versus cellulitis versus other] Patient's symptoms improved over duration of stay with above-stated therapies. Findings and discharge diagnosis discussed with patient/family followed by verbalization of understanding Return precautions discussed with patient/family whom verbalize understanding. Discharge Plan Departure Patient Disposition: Home Clinical Impression: Tendinopathy of left elbow Instructions: DI for Elbow Pain Activity Restrictions/Additional Instructions: *You have been diagnosed with [left lateral elbow pain most consistent with a tendinopathy though other inflammatory conditions have been considered] *What to do: *Please continue to take your regular medications as directed. [ ] New medication prescriptions sent to your pharmacy: [ ] [x ] New medication written as a paper prescription [ ] No new medications given *Please follow up with your primary care provider in 2-3 days, call for an appointment. Let them know you were seen in the Emergency Department and that we ask that you be seen in follow up. We will electronically transmit a record of today's note if your PCP is in our system *If you do not have a primary care provider please contact the [facility] Resource line at [phone]. They will ask some questions about your medical history and help get you set up with a doctor in the community. *Return to Emergency Department if you should have any new, worsening or concerning symptoms, such as [fever greater than 101 F, shaking chills, worsening pain, persistent vomiting or other bothersome symptoms] *Please consider obtaining a compression sleeve or commercially available compression band Prescriptions: New ketorolac 10 mg tablet 10 mg PO Q6H PRN (Reason: pain) Qty: 14 RF: 0 No Action methadone 40 mg tablet,soluble 35 mg PO DAILY RF: 0 Referrals: [facility] [Outside]
== END 2020-06-27 13:02 | disposition home or self-care (01) ==
PROVIDERS: Emergency Provider Emergency Medicine
DX: M67.922 Unspecified disorder of synovium and tendon, left upper arm (principal)
CPT/HCPCS: 99281

== ENCOUNTER → 2020-07-13 15:26 | Outpatient (CLI) | payer OTHER, MEDICAID, SELFPAY ==
[2020-07-13 15:59] LABS: COVID19 -Nasal RAPID Negative (Negative)
== END ==
PROVIDERS: Visit Provider Family Medicine Sleep Medicine
DX: Z20.822 Contact with and (suspected) exposure to COVID-19 (principal)
CPT/HCPCS: 87635

== ENCOUNTER 2021-03-29 02:32 | Emergency (ER) | payer OTHER, MEDICAID, SELFPAY ==
[2021-03-29 02:57] VITALS: BP 136/78; PULSE 96; RESP 18; TEMP 36.7; O2SAT 100; BMI 30.9
--- NOTE | 2021-03-29 03:05 | ED.GENADULT ---
HPI - General Adult General Chief complaint: Abdominal Pain Stated complaint: STOMACH ISSUE Time Seen by Provider: 03/29/21 02:51 Source: patient Mode of arrival: Ambulatory History of Present Illness HPI narrative: Patient is a 45-year-old male who arrives to the emergency department stating that he has had several weeks/months of a lump in his upper abdomen. He states that there are times when it seems to become ?inflamed ?and times when it is less ?inflamed ?no nausea vomiting. No fevers. His recently on antibiotics for an infection in his foot so he states he has had some bowel changes since then. No prior abdominal surgeries. No skin changes over the area. He saw a provider at his methadone Clinic who advised that he come to the emergency department ?immediately ?for evaluation. Related Data Home Medications Medication Instructions Recorded Confirmed methadone 40 mg soluble tablet 35 mg PO DAILY tab 05/30/20 05/30/20 Previous Rx's Medication Instructions Recorded ketorolac 10 mg tablet 10 mg PO Q6H PRN #14 tab 06/27/20 Allergies Allergy/AdvReac Type Severity Reaction Status Date / Time Sulfa (Sulfonamide Allergy Verified 03/29/21 02:57 Antibiotics) Review of Systems Constitutional Constitutional: Denies fever(s) Cardiovascular Cardiovascular: Reports system reviewed and no additional complaints, except as documented Respiratory Respiratory: Reports system reviewed and no additional complaints, except as documented Gastrointestinal Gastrointestinal: Reports as per HPI and Reports system reviewed and no additional complaints, except as documented Genitourinary Genitourinary: Reports system reviewed and no additional complaints, except as documented and Reports as per HPI Integumentary/Breasts Skin/Breast: Reports system reviewed and no additional complaints, except as documented Hematologic/Lymphatic On Anticoagulants: No Patient History Medical History Anxiety (Unknown) Degenerative disc disease at L5-S1 level (Unknown) GERD (gastroesophageal reflux disease) (Unknown) 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) Family History Family/Other Loud snoring Obesity Hypertension Heart disease Depression Anxiety Alcohol abuse Father Loud snoring Alcohol abuse Substance abuse Mother Loud snoring Sleep apnea Insomnia Obesity Hypertension Heart disease Depression Anxiety Alcohol abuse Substance abuse Family/Other Loud snoring Insomnia Anxiety Depression Alcohol abuse Substance abuse Family/Other Depression Anxiety Alcohol abuse Social History Smoking Status: Former smoker Smoking Status: Former smoker alcohol intake frequency: holidays/special occasions only Substance Use Type: heroin and methamphetamine Exam Initial Vital Signs Initial Vital Signs: Vital Signs Temperature 98.1 F 03/29/21 02:57 Pulse Rate 96 H 03/29/21 02:57 Respiratory Rate 18 03/29/21 02:57 Blood Pressure 136/78 03/29/21 02:57 Pulse Oximetry 100 03/29/21 02:57 Resp Effort & Inspection: normal respiratory effort Cardio Rate: regular rate GI Other: Patient's abdomen is soft. In the left upper quadrant there is a ?mass? that is felt that is soft. Easily movable. That has the exam consistent with a lipoma. No hernia felt. Has minimal tenderness to palpation. Skin Other: No lesions over the area in question Neuro General: patient alert and patient awake Course Vital Signs Vital signs: Vital Signs - 8 hr 03/29/21 02:57 Temperature 98.1 F Pulse Rate 96 H Respiratory Rate 18 Blood Pressure 136/78 Pulse Oximetry 100 Medical Decision Making MDM Narrative Medical decision making narrative: Patient has had weeks/months of symptoms. The area in question is in his left upper quadrant. Low suspicion for hernia given his presentation. Low suspicion for abscess. Low suspicion for cyst. His exam is most consistent with a lipoma. No indication for laboratory results. No indication for radiologic studies. Patient was given contact information for General surgery to schedule follow-up and decision can be made about any radiologic studies that point. He was given return precautions. He expressed understanding and agreement. Discharge Plan Departure Patient Disposition: Home Clinical Impression: Lipoma Activity Restrictions/Additional Instructions: I recommend that tomorrow you contact the general surgery department at the number provided below to schedule a follow-up appointment. Return to the emergency department for any worsening symptoms. I also recommend you contact [phone]. This is the call center at the hospital and they can help you establish a primary provider. Prescriptions: No Action ketorolac 10 mg tablet 10 mg PO Q6H PRN (Reason: pain) Qty: 14 0RF methadone 40 mg tablet,soluble 35 mg PO DAILY 0RF Referrals: Lan Lama MD [Physician] - Miscellaneous,MD Maame [Primary Care Provider] -
== END 2021-03-29 03:14 | disposition home or self-care (01) ==
PROVIDERS: Emergency Provider Emergency Medicine
DX: D17.5 Benign lipomatous neoplasm of intra-abdominal organs (principal)
CPT/HCPCS: 99281

== ENCOUNTER 2021-04-13 03:29 | Emergency (ER) | payer OTHER, MEDICAID, SELFPAY ==
[2021-04-13 03:35] VITALS: BP 150/74; PULSE 120; RESP 24; TEMP 36.9; O2SAT 98; BMI 34.3
--- NOTE | 2021-04-13 03:41 | ED_ITS ---
HPI - Extremity Problem General Chief complaint: Extremity Problem,Nontraumatic Stated complaint: PAIN IN LEGS AND SWOLLEN BOTH LEGS Time Seen by Provider: 04/13/21 03:36 History of Present Illness HPI Narrative: 45-year-old male smoker with extensive history of illicit drug use presents with chief complaint of 2-3 days of increased pain, swelling and warmth of both extremities largely from the knees down. He states he has been working much more than normal in the been on his feet more than normal but also admits to recently relapsing and both smoking and injecting. He denies any chest pain or shortness of breath. He denies fever or chills. He denies dizziness, weakness or lightheadedness. Related Data Home Medications Medication Instructions Recorded Confirmed methadone 40 mg soluble tablet 35 mg PO DAILY tab 05/30/20 05/30/20 Previous Rx's Medication Instructions Recorded ketorolac 10 mg tablet 10 mg PO Q6H PRN #14 tab 06/27/20 doxycycline hyclate 100 mg tablet 100 mg PO BID #20 tab 04/13/21 Allergies Allergy/AdvReac Type Severity Reaction Status Date / Time Sulfa (Sulfonamide Allergy Verified 03/29/21 02:57 Antibiotics) Review of Systems Review of Systems Narrative: GENERAL: Denies chills, fatigue, malaise, fever, sweats. HEENT: Denies sinus pain, ear pain, sore throat, difficulty swallowing, dizziness. RESPIRATORY: Denies dyspnea, cough, wheezing, hemoptysis, sputum. CARDIOVASCULAR: Denies chest pain, palpitations, orthopnea, edema, GASTROINTESTINAL: Denies nausea, vomiting, abdominal pain, diarrhea, constipa tion, melena. : Denies dysuria, frequency, incontinence, hematuria, urinary retention. MUSCULOSKELETAL: See HPI SKIN: See HPI NEUROLOGIC: Denies weakness, headache, numbness, change in speech, confusion, seizures, incoordination. PSYCHIATRIC: No concerning psychosocial issues. 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) Family History Family/Other Loud snoring Obesity Hypertension Heart disease Depression Anxiety Alcohol abuse Father Loud snoring Alcohol abuse Substance abuse Mother Loud snoring Substance abuse Sleep apnea Insomnia Obesity Hypertension Heart disease Depression Anxiety Alcohol abuse Family/Other Loud snoring Insomnia Anxiety Depression Alcohol abuse Substance abuse Family/Other Depression Anxiety Alcohol abuse Social History Smoking Status: Former smoker Smoking Status: Former smoker alcohol intake frequency: holidays/special occasions only Substance Use Type: heroin and methamphetamine Exam Narrative Exam Narrative: GENERAL: [45] year old patient appears stated age. Well-developed patient, in mild distress. HEAD: Atraumatic. Normocephalic. EYES: Pupils equal round and reactive. Extraocular motions intact. No scleral icterus. No injection or drainage. ENT: Nose without bleeding, purulent drainage. Throat without erythema, tonsillar hypertrophy or exudate. Airway patent. NECK: Trachea midline. Non tender CARDIOVASCULAR: Tachycardic but regular rhythm without murmurs, gallops, or rubs. RESPIRATORY: Clear to auscultation. Breath sounds equal bilaterally. No wheezes, rales, or rhonchi. GASTROINTESTINAL: Abdomen soft, non-tender, nondistended. EXTREMITIES: 2+ pitting edema bilateral lower extremities with warmth and minimal erythema. No induration or fluctuance, cuts, scrapes or obvious source of infection. BACK: Nontender without deformity or crepitance. No flank tenderness. NEURO: AOx3. SKIN: No rash or erythema of visible areas Initial Vital Signs Initial Vital Signs: Vital Signs Temperature 98.5 F 04/13/21 03:35 Pulse Rate 120 H 04/13/21 03:35 Respiratory Rate 24 04/13/21 03:35 Blood Pressure 150/74 H 04/13/21 03:35 Pulse Oximetry 98 04/13/21 03:35 Course Orders Ordered: ED Orders 04/13/21 04:15 BNP [NT-proBNP (BNP-Adult 18+)] Stat Complete Blood Count AUTO DIFF Stat Comprehensive Metabolic Panel Stat D Dimer Stat Lactate (Lactic Acid) Stat Procalcitonin Stat Troponin & CK Cardiac Panel Stat 04/13/21 04:24 Blood Culture Stat Sodium Chloride (Normal Saline 0.9%) 1,000 mls @ 1,000 mls/hr IV BOLUS ONE Stop: 04/13/21 05:18 Last Admin: 04/13/21 04:25 Dose: 1,000 mls/hr Documented by: ROBINSON Discontinued Medications Doxycycline Hyclate (Doxycycline Hyclate 100 Mg Tablet) 100 mg PO NOW ONE Stop: 04/13/21 05:11 Vital Signs Vital signs: Vital Signs - 8 hr 04/13/21 03:35 Temperature 98.5 F Pulse Rate 120 H Respiratory Rate 24 Blood Pressure 150/74 H Pulse Oximetry 98 MDM - Extremity (Nontraumatic) Lab Data Result diagrams: 04/13/21 04:15 04/13/21 04:15 Labs: Lab Results 04/13/21 04/13/21 04/13/21 Range/Units 04:15 04:15 04:15 WBC 6.9 (4.5-11.0) X10^3/uL RBC 4.48 L (4.5-5.9) X10^6/uL Hgb 12.8 L (13.5-17.5) g/dL Hct 37.6 L (41-53) % MCV 83.8 (80-100) fL MCH 28.5 (26-34) PG MCHC 34.0 (30-36) % RDW 13.2 (11.6-14.8) % Plt Count 230 (150-400) X10^3/uL Neut % (Auto) 65.4 (50-75) % Lymph % (Auto) 22.5 L (25-40) % King % (Auto) 6.3 (3-14) % Eos % (Auto) 5.5 H (2-4) % Baso % (Auto) 0.3 (0-2) % Neut # (Auto) 4500 (5809-9732) /uL Lymph # (Auto) 1600 (3091-6126) /uL King # (Auto) 400 (0-900) /uL Eos # (Auto) 400 (0-450) /uL Baso # (Auto) 0 (0-100) /uL D-Dimer < 200 (<230) ng/mL Sodium 141 (137-145) mmol/L Potassium 3.4 (3.4-5.1) mmol/L Chloride 104 (98-107) mmol/L Carbon Dioxide 32 (22-32) mmol/L BUN 18 (9-20) mg/dL Creatinine 0.77 (0.66-1.25) mg/dL Estimated GFR > 60.0 (>60) mL/min BUN/Creatinine Ratio 23.4 H (6-22) Glucose 139 H (70-100) mg/dL Lactate (0.7-2.1) mmol/L Calcium 9.2 (8.4-10.2) mg/dL Total Bilirubin 0.7 (0.2-1.3) mg/dL AST 33 (17-59) IU/L ALT 21 (<50) IU/L Alkaline Phosphatase 54 (38-126) U/L Total Creatine Kinase 99 (55-170) U/L CK-MB (CK-2) TNP CK-MB (CK-2) Rel Index TNP Troponin I < 0.012 (0.01-0.034) ng/mL NT-Pro-B Natriuret Pep (<125) pg/mL Total Protein 7.4 (6.3-8.2) g/dL Albumin 4.4 (3.5-5.0) g/dL Globulin 3.0 (1.7-4.1) g/dL Albumin/Globulin Ratio 1.5 (1.0-2.8) Procalcitonin 0.04 (<0.5) ng/mL 04/13/21 04/13/21 Range/Units 04:15 04:15 WBC (4.5-11.0) X10^3/uL RBC (4.5-5.9) X10^6/uL Hgb (13.5-17.5) g/dL Hct (41-53) % MCV (80-100) fL MCH (26-34) PG MCHC (30-36) % RDW (11.6-14.8) % Plt Count (150-400) X10^3/uL Neut % (Auto) (50-75) % Lymph % (Auto) (25-40) % King % (Auto) (3-14) % Eos % (Auto) (2-4) % Baso % (Auto) (0-2) % Neut # (Auto) (9528-0478) /uL Lymph # (Auto) (9267-7175) /uL King # (Auto) (0-900) /uL Eos # (Auto) (0-450) /uL Baso # (Auto) (0-100) /uL D-Dimer (<230) ng/mL Sodium (137-145) mmol/L Potassium (3.4-5.1) mmol/L Chloride (98-107) mmol/L Carbon Dioxide (22-32) mmol/L BUN (9-20) mg/dL Creatinine (0.66-1.25) mg/dL Estimated GFR (>60) mL/min BUN/Creatinine Ratio (6-22) Glucose (70-100) mg/dL Lactate 1.9 (0.7-2.1) mmol/L Calcium (8.4-10.2) mg/dL Total Bilirubin (0.2-1.3) mg/dL AST (17-59) IU/L ALT (<50) IU/L Alkaline Phosphatase (38-126) U/L Total Creatine Kinase (55-170) U/L CK-MB (CK-2) CK-MB (CK-2) Rel Index Troponin I (0.01-0.034) ng/mL NT-Pro-B Natriuret Pep 32 (<125) pg/mL Total Protein (6.3-8.2) g/dL Albumin (3.5-5.0) g/dL Globulin (1.7-4.1) g/dL Albumin/Globulin Ratio (1.0-2.8) Procalcitonin (<0.5) ng/mL MDM Narrative Medical decision making narrative: Patient with bilateral leg swelling, redness and pain over the past few days. He does admit to being on his legs more than normal which could surely be contributing. Initially heart rate is 120 or so but drops into the 90s after rest and fluids. There are no signs of sepsis. Multiple diagnoses considered including DVT, cellulitis as well as systemic issues such as heart failure, renal failure and others. Clot thought to be unlikely given bilateral nature of his complaint as well as a negative D-dimer. Heart failure in renal failure considered given the bilateral presentation, however unlikely given lack of lab findings, shortness of breath etc.. Most likely causes superficial infection given bilateral injections of illicit drugs. No sign of abscess or obvious skin breakdown to warrant incision and drainage or advanced imaging. Antibiotics initiated here in the department with full course sent to his pharmacy of choice. Extensive return precautions discussed and questions have been answered to his apparent satisfaction Discharge Plan Departure Patient Disposition: Home Clinical Impression: IV drug abuse, Left leg cellulitis, Cellulitis of leg, right Instructions: DI for Cellulitis -- Adult Activity Restrictions/Additional Instructions: *You have been diagnosed with [bilateral leg cellulitis. Your history and physical exam are very reassuring and labs would suggest against blood clot, heart failure, kidney failure or sepsis. *What to do: *Please continue to take your regular medications as directed. [ x] New medication prescriptions sent to your pharmacy: [ [facility]] [ ] New medication written as a paper prescription [ ] No new medications given *Please follow up with your primary care provider in 2-3 days, call for an appointment. Let them know you were seen in the Emergency Department and that we ask that you be seen in follow up. We will electronically transmit a record of today's note if your PCP is in our system ELEVATE YOUR LEGS as much as you can in the days you have off *If you do not have a primary care provider please contact the [facility] Resource line at [phone]. They will ask some questions about your medical history and help get you set up with a doctor in the community. *Return to Emergency Department if you should have any new, worsening or concerning symptoms, such as [fever greater than 101 F, shaking chills, worsening pain, persistent vomiting or other bothersome symptoms] Prescriptions: New doxycycline hyclate 100 mg tablet 100 mg PO BID Qty: 20 0RF No Action ketorolac 10 mg tablet 10 mg PO Q6H PRN (Reason: pain) Qty: 14 0RF methadone 40 mg tablet,soluble 35 mg PO DAILY 0RF Referrals: Miscellaneous,Doctor, MD [Primary Care Provider] - Stand Alone Forms: Work Release Note
--- NOTE | 2021-04-13 04:16 | PC.NURSE ---
pt c/o painful red and swollen BLE states they become more painful with standing at work pt states he has had blisters on his feet recently also
[2021-04-13] MEDS: SODIUM CHLORIDE 0.9% 1,000 ML 1000 ML IV (04:25)
[2021-04-13 04:36] LABS: Add Manual Diff / Slide Review NO; Basophils Absolute Auto 0 /uL (0-100); Basophils Percent Auto 0.3 % (0-2); Eosinophils Absolute Auto 400 /uL (0-450); Eosinophils Percent Auto 5.5 % (2-4); Hematocrit 37.6 % (41-53); Hemoglobin 12.8 g/dL (13.5-17.5); Lymphocytes Absolute Auto 1600 /uL (1100-4500); Lymphocytes Percent Auto 22.5 % (25-40); Mean Corpuscular Hemoglobin 28.5 PG (26-34); Mean Corpuscular Volume 83.8 fL (80-100); Monocytes Absolute Auto 400 /uL (0-900); Monocytes Percent Auto 6.3 % (3-14); Neutrophils Absolute Auto 4500 /uL (1500-7000); Neutrophils Percent Auto 65.4 % (50-75); Platelet Count 230 X10^3/uL (150-400); Red Blood Cell Count 4.48 X10^6/uL (4.5-5.9); Red Cell Distribution Width 13.2 % (11.6-14.8); White Blood Cell Count 6.9 X10^3/uL (4.5-11.0)
[2021-04-13 04:43] LABS: D Dimer < 200 ng/mL (<230); Lactate (Lactic Acid) 1.9 mmol/L (0.7-2.1)
[2021-04-13 04:45] LABS: Alanine Aminotransferase 21 IU/L (<50); Albumin 4.4 g/dL (3.5-5.0); Albumin Globulin Ratio 1.5 (1.0-2.8); Alkaline Phosphatase 54 U/L (38-126); Aspartate Aminotransferase 33 IU/L (17-59); BUN Creatinine Ratio 23.4 (6-22); Bilirubin Total 0.7 mg/dL (0.2-1.3); Blood Urea Nitrogen 18 mg/dL (9-20); Calcium 9.2 mg/dL (8.4-10.2); Carbon Dioxide 32 mmol/L (22-32); Chloride 104 mmol/L (98-107); Creatine Kinase 99 U/L (55-170); Estimated Glomerular Filt Rate > 60.0 mL/min (>60); Glucose 139 mg/dL (70-100); HEMOLYSIS < 15 (0-50); Potassium 3.4 mmol/L (3.4-5.1); Sodium 141 mmol/L (137-145); Total Protein 7.4 g/dL (6.3-8.2)
[2021-04-13 04:54] LABS: NT-proBNP (BNP-Adult 18+) 32 pg/mL (<125)
[2021-04-13 04:56] LABS: Troponin I < 0.012 ng/mL (0.01-0.034)
[2021-04-13 05:01] LABS: Procalcitonin 0.04 ng/mL (<0.5)
[2021-04-13] MEDS: DOXYCYCLINE HYCLATE 100 MG TABLET PO (05:22)
[2021-04-13 05:23] VITALS: BP 108/58; PULSE 98; RESP 18; O2SAT 100
== END 2021-04-13 05:32 | disposition home or self-care (01) ==
PROVIDERS: Emergency Provider Emergency Medicine
DX: L03.116 Cellulitis of left lower limb (principal); L03.115 Cellulitis of right lower limb; F19.10 Other psychoactive substance abuse, uncomplicated
CPT/HCPCS: 36415; 80053; 82550; 83605; 83880; 84145; 84484; 85025; 85379; 87040; 96360; 99284

== ENCOUNTER 2021-05-09 19:22 | Emergency (ER) | payer OTHER, MEDICAID, SELFPAY ==
[2021-05-09 19:32] VITALS: BP 152/92; PULSE 96; RESP 20; TEMP 36.2; O2SAT 99; BMI 32.5
--- NOTE | 2021-05-09 22:02 | ED_ITS ---
HPI - General Adult General Chief complaint: Shortness of Breath/Dyspnea Stated complaint: short of breath Time Seen by Provider: 05/09/21 22:02 History of Present Illness HPI narrative: 45-year-old gentle with a history of opiate use disorder currently just getting into outpatient treatment again with methadone is still continuing to smoke fentanyl. Has a long history of IV drug use but has not used injection drugs for well over 5 years with 4 year sober. Care. He reports a week of worsening exertional dyspnea and wheezing. Feels that he is not getting enough air and then begins to panic and tell a bit of mucus is able to be produced. He also complains of lump in the upper abdominal area that ?popped? the knee had some rectal bleeding the lump seem to improve and now he is noticing the lump seems to be reaccumulating. He also notes that he has significant lower extremity edema particularly on the right side. He complains of dramatic weight increase over the last couple of weeks. He reports no fevers, headaches, vomiting or diarrhea. He describes no palpitations or overt chest pain. He does note right knee pain and effusion after falling on the knee a couple of weeks ago. Related Data Home Medications Medication Instructions Recorded Confirmed methadone 40 mg soluble tablet 35 mg PO DAILY tab 05/30/20 05/30/20 Previous Rx's Medication Instructions Recorded ketorolac 10 mg tablet 10 mg PO Q6H PRN #14 tab 06/27/20 doxycycline hyclate 100 mg tablet 100 mg PO BID #20 tab 04/13/21 Allergies Allergy/AdvReac Type Severity Reaction Status Date / Time Sulfa (Sulfonamide Allergy Verified 03/29/21 02:57 Antibiotics) Review of Systems Review of Systems Narrative: Remainder of complete review of systems is otherwise unremarkable except for that included in the HPI. Patient History Medical History Anxiety (Unknown) Degenerative disc disease at L5-S1 level (Unknown) GERD (gastroesophageal reflux disease) (Unknown) 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) Family History Family/Other Loud snoring Obesity Hypertension Heart disease Depression Anxiety Alcohol abuse Father Loud snoring Alcohol abuse Substance abuse Mother Loud snoring Substance abuse Sleep apnea Insomnia Obesity Hypertension Heart disease Depression Anxiety Alcohol abuse Family/Other Loud snoring Insomnia Anxiety Depression Alcohol abuse Substance abuse Family/Other Depression Anxiety Alcohol abuse Social History Smoking Status: Former smoker Smoking Status: Former smoker alcohol intake frequency: holidays/special occasions only Substance Use Type: heroin and methamphetamine Exam Initial Vital Signs Initial Vital Signs: Vital Signs Temperature 97.1 F L 05/09/21 19:32 Pulse Rate 96 H 05/09/21 19:32 Respiratory Rate 20 05/09/21 19:32 Blood Pressure 152/92 H 05/09/21 19:32 Pulse Oximetry 99 05/09/21 19:32 General: no acute distress. Able to give a complete and coherent history. Well-nourished well-developed HEENT: Moist mucous membranes, normal sclera with reactive pupils, Neck: No JVD, supple Respiratory: Lungs are clear to auscultation, no wheezing no rales no rhonchi. Full and symmetrical air movement Cardiac: Regular rate and rhythm. no murmurs with careful auscultation. no bru its Abdomen: Soft, nontender, area of concern in the left upper quadrant is palpated and I do not appreciate obvious abnormalities. Good bowel tones, no flank pain Skin: Warm and dry, no rashes. Old track mejía but no new skin abnormalities or abscesses Neurologic: Grossly neurologically intact with no obvious asymmetries or abnormalities Extremities: Left lower extremity with 1+ edema. Right lower extremity with 3+ edema to the midthigh with tenderness mid calf and mild erythema on the medial aspect of the right thigh. Right knee with effusion and decreased range of motion but no warmth, redness, abrasion or obvious hematoma Psych: Cooperative, appropriate insight and affect Course Orders Ordered: ED Orders 05/09/21 22:19 CT angio chest PE protocol Stat EKG-12 Lead Stat 05/09/21 22:38 COVID19 -Nasal swab/Pre-Proc Stat 05/09/21 22:46 Complete Blood Count AUTO DIFF Stat Comprehensive Metabolic Panel Stat Magnesium Stat NT-proBNP (BNP-Adult 18+) Stat Procalcitonin Stat Troponin I Stat 05/10/21 01:29 perip venous low extrem rt Stat Vital Signs Vital signs: Vital Signs - 8 hr 05/09/21 19:32 05/10/21 01:23 Temperature 97.1 F L Pulse Rate 96 H 82 Respiratory Rate 20 18 Blood Pressure 152/92 H 128/75 Pulse Oximetry 99 99 Medical Decision Making Lab Data Result diagrams: 05/09/21 22:46 05/09/21 22:46 Labs: Lab Results 05/09/21 05/09/21 05/09/21 Range/Units 22:38 22:46 22:46 WBC 5.4 (4.5-11.0) X10^3/uL RBC 4.26 L (4.5-5.9) X10^6/uL Hgb 12.4 L (13.5-17.5) g/dL Hct 35.4 L (41-53) % MCV 83.1 (80-100) fL MCH 29.1 (26-34) PG MCHC 35.1 (30-36) % RDW 13.2 (11.6-14.8) % Plt Count 241 (150-400) X10^3/uL Neut % (Auto) 58.7 (50-75) % Lymph % (Auto) 25.8 (25-40) % [place] % (Auto) 8.2 (3-14) % Eos % (Auto) 6.7 H (2-4) % Baso % (Auto) 0.6 (0-2) % Neut # (Auto) 3200 (1445-7138) /uL Lymph # (Auto) 1400 (2544-5715) /uL [place] # (Auto) 400 (0-900) /uL Eos # (Auto) 400 (0-450) /uL Baso # (Auto) 0 (0-100) /uL Sodium 139 (137-145) mmol/L Potassium 3.5 (3.4-5.1) mmol/L Chloride 107 (98-107) mmol/L Carbon Dioxide 28 (22-32) mmol/L BUN 20 (9-20) mg/dL Creatinine 0.69 (0.66-1.25) mg/dL Estimated GFR > 60.0 (>60) mL/min BUN/Creatinine Ratio 29.0 H (6-22) Glucose 108 H (70-100) mg/dL Calcium 8.8 (8.4-10.2) mg/dL Magnesium (1.6-2.3) mg/dL Total Bilirubin 0.6 (0.2-1.3) mg/dL AST 28 (17-59) IU/L ALT 20 (<50) IU/L Alkaline Phosphatase 56 (38-126) U/L Troponin I (0.01-0.034) ng/mL NT-Pro-B Natriuret Pep (<125) pg/mL Total Protein 7.0 (6.3-8.2) g/dL Albumin 4.1 (3.5-5.0) g/dL Globulin 2.9 (1.7-4.1) g/dL Albumin/Globulin Ratio 1.4 (1.0-2.8) Procalcitonin (<0.5) ng/mL SARS-CoV-2 (PCR) Negative (Negative) 05/09/21 Range/Units 22:46 WBC (4.5-11.0) X10^3/uL RBC (4.5-5.9) X10^6/uL Hgb (13.5-17.5) g/dL Hct (41-53) % MCV (80-100) fL MCH (26-34) PG MCHC (30-36) % RDW (11.6-14.8) % Plt Count (150-400) X10^3/uL Neut % (Auto) (50-75) % Lymph % (Auto) (25-40) % [place] % (Auto) (3-14) % Eos % (Auto) (2-4) % Baso % (Auto) (0-2) % Neut # (Auto) (8507-0755) /uL Lymph # (Auto) (7975-9714) /uL [place] # (Auto) (0-900) /uL Eos # (Auto) (0-450) /uL Baso # (Auto) (0-100) /uL Sodium (137-145) mmol/L Potassium (3.4-5.1) mmol/L Chloride (98-107) mmol/L Carbon Dioxide (22-32) mmol/L BUN (9-20) mg/dL Creatinine (0.66-1.25) mg/dL Estimated GFR (>60) mL/min BUN/Creatinine Ratio (6-22) Glucose (70-100) mg/dL Calcium (8.4-10.2) mg/dL Magnesium 2.3 (1.6-2.3) mg/dL Total Bilirubin (0.2-1.3) mg/dL AST (17-59) IU/L ALT (<50) IU/L Alkaline Phosphatase (38-126) U/L Troponin I < 0.012 (0.01-0.034) ng/mL NT-Pro-B Natriuret Pep 25 (<125) pg/mL Total Protein (6.3-8.2) g/dL Albumin (3.5-5.0) g/dL Globulin (1.7-4.1) g/dL Albumin/Globulin Ratio (1.0-2.8) Procalcitonin 0.16 (<0.5) ng/mL SARS-CoV-2 (PCR) (Negative) Imaging Data CT scan - chest: Radiologist's Impression: FINDINGS:? Image quality:? There is streak artifact from patient's injected contrast.? ? Pulmonary arteries:? Pulmonary arteries are normal in size, and demonstrate no intraluminal filling defects to suggest central pulmonary embolism.? ? Lungs and pleura:? There is mild dependent atelectasis bilaterally.? No focal consolidation.? No pleural effusions or pneumothorax.? Central and peripheral airways are patent.? ? Mediastinum:? Heart size is normal, without pericardial effusion.? No mediastinal or hilar adenopathy.? Thoracic aorta is normal in caliber and enhancement.? Esophag us is normal in caliber, without hiatal hernia.? ? Bones and chest wall:? No suspicious bony lesions.? Ribs and thoracic spine appear intact throughout.? The visualized thyroid demonstrates no discrete nodules, with evaluation limited by streak artifact.? No axillary or supraclavicular adenopathy.? ? Abdomen:? Visualized upper abdominal solid organs appear normal in the early arterial phase of enhancement.? ? IMPRESSION:? ? 1. No evidence of pulmonary embolism. ? 2. No acute airspace consolidation.? ? ? Dictated by: Jacob Rivero M.D. on 05/09/2021 at 23:41 ? ? Lower extremity DVT: My Impression: Per tech, no clot in the right lower extremity MDM Narrative Medical decision making narrative: 45-year-old gentleman who comes in with worsening exertional dyspnea and lower extremity edema as well as asymmetric edema of the lower extremities. He curr ently does not have any wheezing or significant abnormalities on chest exam and I do not appreciate murmurs with his cardiac exam. I am concerned that he has a DVT. With the description of his exertional dyspnea, his history of smoking fentanyl, and tachycardia his risk for pulmonary embolus is high enough and simply going to do a PE study. This will also help evaluate lung wang as where all as cardiac silhouette. With no fevers chills or clinical exam suggestive of infectious etiology endocarditis is much less lower on my list and serial blood cultures are not ordered at this time. Labs reviewed and suggest no significant infection, renal failure, liver failure, congestive heart failure. CT scan of the chest shows no pulmonary emboli no acute air space consolidation, no pericardial effusion normal thoracic aorta. At this time, I am not finding a life-threatening explanation for his worsening exertional dyspnea. He states that he has gained a significant amount recently and that certainly may be contributing. With no evidence of pulmonary embolism I am still concerned that he may have an isolated lower extremity DVT. Ultrasound is currently pending Discharge Plan Departure Patient Disposition: Home Clinical Impression: Dyspnea, Effusion of knee joint right Instructions: DI for Shortness of Breath, DI for Knee Effusion Activity Restrictions/Additional Instructions: Thank you for coming in today With the workup that we did today there is no evidence of significant lung infection, collapsed lung, blood clots in your lung, mechanical obstruction from your recent smoking, extra fluid around your heart. There is no sign of kidney failure, congestive heart failure or liver failure The extra work of breathing may be related to some of the weight that you gain. With the thick mucus rather than trying albuterol in the puffer that was not effective you might try using a home humidifier. A humidifier is available at at drug store and is not a prescription device. Give your knee a couple of more weeks to see if the swelling/effusion goes down by itself. If not, would recommend follow-up at an orthopedic surgery office for further evaluation. Good luck in your recovery Prescriptions: No Action ketorolac 10 mg tablet 10 mg PO Q6H PRN (Reason: pain) Qty: 14 0RF methadone 40 mg tablet,soluble 35 mg PO DAILY 0RF doxycycline hyclate 100 mg tablet 100 mg PO BID Qty: 20 0RF
--- NOTE | 2021-05-09 22:19 | DI.CT.S_ITS ---
PROCEDURE: CT ANGIO CHEST PE PROTOCOL INDICATIONS: high prob PE, dyspnea, also h/o smoking fenanyl TECHNIQUE: After the administration of intravenous contrast, 2 mm thick sections acquired from the pulmonary apices to the posterior costophrenic angles. 3-dimensional maximum intensity projection (MIP) coronal and sagittal reformats were then acquired through the thorax. For radiation dose reduction, the following was used: automated exposure control, adjustment of mA and/or kV according to patient size. COMPARISON: None. FINDINGS: Image quality: There is streak artifact from patient's injected contrast. Pulmonary arteries: Pulmonary arteries are normal in size, and demonstrate no intraluminal filling defects to suggest central pulmonary embolism. Lungs and pleura: There is mild dependent atelectasis bilaterally. No focal consolidation. No pleural effusions or pneumothorax. Central and peripheral airways are patent. Mediastinum: Heart size is normal, without pericardial effusion. No mediastinal or hilar adenopathy. Thoracic aorta is normal in caliber and enhancement. Esophagus is normal in caliber, without hiatal hernia. Bones and chest wall: No suspicious bony lesions. Ribs and thoracic spine appear intact throughout. The visualized thyroid demonstrates no discrete nodules, with evaluation limited by streak artifact. No axillary or supraclavicular adenopathy. Abdomen: Visualized upper abdominal solid organs appear normal in the early arterial phase of enhancement. IMPRESSION: 1. No evidence of pulmonary embolism. 2. No acute airspace consolidation. Dictated by: Jacob Rivero M.D. on 05/09/2021 at 23:41 Approved by: Jacob Rivero M.D. on 05/09/2021 at 23:48
[2021-05-09 22:59] LABS: COVID19 -Nasal RAPID Negative (Negative)
[2021-05-09 23:13] LABS: Add Manual Diff / Slide Review NO; Basophils Absolute Auto 0 /uL (0-100); Basophils Percent Auto 0.6 % (0-2); Eosinophils Absolute Auto 400 /uL (0-450); Eosinophils Percent Auto 6.7 % (2-4); Hematocrit 35.4 % (41-53); Hemoglobin 12.4 g/dL (13.5-17.5); Lymphocytes Absolute Auto 1400 /uL (1100-4500); Lymphocytes Percent Auto 25.8 % (25-40); Mean Corpuscular HGB Conc 35.1 % (30-36); Mean Corpuscular Hemoglobin 29.1 PG (26-34); Mean Corpuscular Volume 83.1 fL (80-100); Monocytes Absolute Auto 400 /uL (0-900); Monocytes Percent Auto 8.2 % (3-14); Neutrophils Absolute Auto 3200 /uL (1500-7000); Neutrophils Percent Auto 58.7 % (50-75); Platelet Count 241 X10^3/uL (150-400); Red Blood Cell Count 4.26 X10^6/uL (4.5-5.9); Red Cell Distribution Width 13.2 % (11.6-14.8); White Blood Cell Count 5.4 X10^3/uL (4.5-11.0)
[2021-05-09 23:19] LABS: Alanine Aminotransferase 20 IU/L (<50); Albumin 4.1 g/dL (3.5-5.0); Albumin Globulin Ratio 1.4 (1.0-2.8); Alkaline Phosphatase 56 U/L (38-126); Aspartate Aminotransferase 28 IU/L (17-59); Bilirubin Total 0.6 mg/dL (0.2-1.3); Blood Urea Nitrogen 20 mg/dL (9-20); Calcium 8.8 mg/dL (8.4-10.2); Carbon Dioxide 28 mmol/L (22-32); Chloride 107 mmol/L (98-107); Estimated Glomerular Filt Rate > 60.0 mL/min (>60); Globulin 2.9 g/dL (1.7-4.1); Glucose 108 mg/dL (70-100); HEMOLYSIS < 15 (0-50); Potassium 3.5 mmol/L (3.4-5.1); Sodium 139 mmol/L (137-145)
[2021-05-09 23:20] LABS: Magnesium 2.3 mg/dL (1.6-2.3)
[2021-05-09 23:31] LABS: NT-proBNP (BNP-Adult 18+) 25 pg/mL (<125); Troponin I < 0.012 ng/mL (0.01-0.034)
[2021-05-09 23:36] LABS: Procalcitonin 0.16 ng/mL (<0.5)
[2021-05-10 01:23] VITALS: BP 128/75; PULSE 82; RESP 18; O2SAT 99
--- NOTE | 2021-05-10 01:29 | DI.US.S_ITS ---
PROCEDURE: US PERIPH VENOUS LOW EXTREM RT INDICATIONS: ASYMETRIC EDEMA TECHNIQUE: Real-time imaging, as well as color and pulse Doppler interrogation, were performed of the lower extremity deep veins from the inguinal ligament to the popliteal fossa. COMPARISON: None. FINDINGS: The common femoral, femoral and popliteal veins are normally compressible, and free of intraluminal thrombus. Color and pulse Doppler demonstrate normal phasic intraluminal flow. There is normal augmentation response to distal compression maneuver. IMPRESSION: Negative for deep venous thrombosis of the right lower extremity. No significant discrepancy with the assembler 1st shift radiology preliminary report. Dictated by: Boni Tolbert M.D. on 05/10/2021 at 7:59 Approved by: Boni Tolbert M.D. on 05/10/2021 at 7:59
== END 2021-05-10 02:49 | disposition home or self-care (01) ==
PROVIDERS: Emergency Provider Emergency Medicine
DX: R06.00 Dyspnea, unspecified (principal); R06.2 Wheezing; M25.461 Effusion, right knee; Z20.822 Contact with and (suspected) exposure to COVID-19
CPT/HCPCS: 36415; 71275; 80053; 83735; 83880; 84145; 84484; 85025; 87635; 93971; 99284; C9803; Q9967

== ENCOUNTER 2021-06-29 15:08 | Emergency (ER) | payer OTHER, MEDICAID, SELFPAY ==
[2021-06-29 15:22] VITALS: BP 159/89; PULSE 93; RESP 18; TEMP 36.6; O2SAT 99; BMI 32.5
[2021-06-29 15:52] LABS: COVID19 -Nasal RAPID Negative (Negative)
--- NOTE | 2021-06-29 16:01 | ED_ITS ---
HPI - General Adult General Chief complaint: Upper Respiratory Symptoms Stated complaint: Head/body pain Time Seen by Provider: 06/29/21 15:56 Source: patient and family Mode of arrival: Ambulatory History of Present Illness HPI narrative: Otherwise healthy 45-year-old male who is here for evaluation of a couple days of headaches and body pain and sore throat and generally not feeling very well. He recently did have an exposure to someone who was positive for strep throat. No rashes. No problems breathing. Related Data Home Medications Medication Instructions Recorded Confirmed methadone 40 mg soluble tablet 35 mg PO DAILY tab 05/30/20 05/30/20 Previous Rx's Medication Instructions Recorded ketorolac 10 mg tablet 10 mg PO Q6H PRN #14 tab 06/27/20 doxycycline hyclate 100 mg tablet 100 mg PO BID #20 tab 04/13/21 Allergies Allergy/AdvReac Type Severity Reaction Status Date / Time Sulfa (Sulfonamide Allergy Verified 03/29/21 02:57 Antibiotics) Review of Systems Constitutional Constitutional: Reports system reviewed and no additional complaints, except as documented ENT Ears, Nose, Mouth, and Throat: Reports system reviewed and no additional co mplaints, except as documented Respiratory Respiratory: Reports system reviewed and no additional complaints, except as documented Gastrointestinal Gastrointestinal: Reports system reviewed and no additional complaints, except as documented Allergic/Immunologic Allergic/Immunologic: Reports system reviewed and no additional complaints, except as documented Patient History Medical History Anxiety (Unknown) Degenerative disc disease at L5-S1 level (Unknown) GERD (gastroesophageal reflux disease) (Unknown) 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) Family History Family/Other Loud snoring Obesity Hypertension Heart disease Depression Anxiety Alcohol abuse Father Loud snoring Alcohol abuse Substance abuse Mother Loud snoring Substance abuse Sleep apnea Insomnia Obesity Hypertension Heart disease Depression Anxiety Alcohol abuse Family/Other Loud snoring Insomnia Anxiety Depression Alcohol abuse Substance abuse Family/Other Depression Anxiety Alcohol abuse Social History Smoking Status: Former smoker Smoking Status: Former smoker alcohol intake frequency: holidays/special occasions only Substance Use Type: heroin and methamphetamine Exam Initial Vital Signs Initial Vital Signs: Vital Signs Temperature 97.8 F 06/29/21 15:22 Pulse Rate 93 H 06/29/21 15:22 Respiratory Rate 18 06/29/21 15:22 Blood Pressure 159/89 H 06/29/21 15:22 Pulse Oximetry 99 06/29/21 15:22 HENMT Head: normal to inspection and normocephalic Mouth: oral mucosae normal Throat: posterior oropharynx abnormal erythema and exudates Neck Lymphatic: lymphadenopathy Resp Effort & Inspection: normal respiratory effort Skin General: no rashes or lesions noted Extrem General: normal to inspection Course Orders Ordered: ED Orders 06/29/21 15:22 Throat Culture Stat 06/29/21 15:32 COVID19 -Nasal RAPID/Pre-Proc Stat Discontinued Medications Dexamethasone (Dexamethasone 4 Mg Tablet) 12 mg PO NOW ONE Stop: 06/29/21 16:02 Last Admin: 06/29/21 16:08 Dose: 12 mg Documented by: JESS Penicillin G Benzathine (Penicillin G Benzathine 1,200,000 Unit/2 Ml Syringe) 1,200,000 unit IM NOW ONE Stop: 06/29/21 16:02 Last Admin: 06/29/21 16:08 Dose: 1,200,000 unit Documented by: JESS Vital Signs Vital signs: Vital Signs - 8 hr 06/29/21 15:22 Temperature 97.8 F Pulse Rate 93 H Respiratory Rate 18 Blood Pressure 159/89 H Pulse Oximetry 99 Medical Decision Making Lab Data Labs: Lab Results 06/29/21 Range/Units 15:32 SARS-CoV-2 (PCR) Negative (Negative) Point of Care Testing Rapid Strep A Positive Point of care testing: Point of Care Testing Rapid Strep A Positive MDM Narrative Medical decision making narrative: Patient is strep positive. No respiratory distress. Physical exam is not consistent with peritonsillar abscess or retropharyngeal abscess. We did discuss IM penicillin verses oral amoxicillin and the patient opted for the injection. He was also given steroids. Feel we can hold on further workup for now. Patient is nontoxic although he does look like he does not feel well. No indication for admission to the hospital. Is given return precautions. He expressed understanding agreement. Discharge Plan Departure Patient Disposition: Home Clinical Impression: Pharyngitis due to Streptococcus species Instructions: DI for Strep Throat Activity Restrictions/Additional Instructions: Be sure to increase your fluid intake. You should start to feel better over the next 24-48 hours. You can take Tylenol for any fevers or body aches. Return to the emergency department for any new or worsening symptoms. Prescriptions: No Action ketorolac 10 mg tablet 10 mg PO Q6H PRN (Reason: pain) Qty: 14 0RF methadone 40 mg tablet,soluble 35 mg PO DAILY 0RF doxycycline hyclate 100 mg tablet 100 mg PO BID Qty: 20 0RF
[2021-06-29] MEDS: dexAMETHasone 4 MG TABLET 12 MG PO (16:08)
[2021-06-29] MEDS: PENICILLIN G BENZATHINE 1,200,000 UNIT/2 ML SYRINGE 1200000 UNIT IM (16:08)
== END 2021-06-29 16:26 | disposition home or self-care (01) ==
PROVIDERS: Emergency Provider Emergency Medicine
DX: J02.0 Streptococcal pharyngitis (principal); Z20.822 Contact with and (suspected) exposure to COVID-19
CPT/HCPCS: 87070; 87077; 87147; 87635; 87880; 96372; 99283; C9803; J0561

== ENCOUNTER 2021-07-03 09:35 | Emergency (ER) | payer OTHER, MEDICAID, SELFPAY ==
[2021-07-03 09:45] VITALS: BP 144/83; PULSE 93; PULSE 97; RESP 12; TEMP 36.8; O2SAT 97; O2SAT 98; BMI 32.5
[2021-07-03 09:46] VITALS: BP 144/83; PULSE 92; O2SAT 98
--- NOTE | 2021-07-03 09:48 | DI.RAD.S_ITS ---
PROCEDURE: XR CHEST 2V INDICATIONS: Short of breath and congestion TECHNIQUE: 2 views of the chest were acquired. COMPARISON: [facility], CR, CHEST FOR PICC PLACEMENT, 04/27/2017, 10:12. [facility], CT, CT ANGIO CHEST PE PROTOCOL, 05/09/2021, 22:28. FINDINGS: Surgical changes and devices: None. Lungs and pleura: Lungs are clear. No pleural effusions or pneumothorax. Mediastinum: Mediastinal contours are normal. Heart size is normal. Bones and chest wall: No suspicious bony abnormalities. Soft tissues appear unremarkable. IMPRESSION: Normal chest plain films. Dictated by: Nacho Gardner M.D. on 07/03/2021 at 9:53 Approved by: Nacho Gardner M.D. on 07/03/2021 at 9:53
--- NOTE | 2021-07-03 10:57 | ED.URI ---
HPI - URI/Sore Throat General Chief Complaint: Upper Respiratory Symptoms Stated Complaint: patient here two days ago, SOB, strep Time Seen by Provider: 07/03/21 09:46 Source: patient Mode of arrival: Ambulatory Limitations: no limitations History of Present Illness HPI Narrative: This is a 45-year-old male who presents for increasing shortness of breath. Patient was seen on the 29 of June diagnosed with strep with point of care testing and given Bicillin. Of breath that started at the same time, he has not had any objective fevers but has felt hot and cold intermittently, he states that he has had a lot of upper sinus congestion and blew out a bunch of green mucus from his nose. He feels congested in his chest as well and states when he breathes these out he has vertebral wheeze sound. He has had a mild cough. He denies any productive cough but feels like he has phlegm in his chest. He denies nausea or vomiting. He denies any diarrhea or constipation. No swelling in his extremities. Patient does take methadone daily he denies any other medications. He has an albuterol inhaler from when he gets sick but states no asthma. He has tried it with no improvement. Patient had an outpatient COVID swab at the [facility] [place] clinic earlier today but would like another. Negative COVID testing on the 29 of June. Former tobacco, occasional alcohol, history of heroin and methamphetamine abuse. Related Data Home Medications Medication Instructions Recorded Confirmed methadone 40 mg soluble tablet 35 mg PO DAILY tab 05/30/20 05/30/20 Previous Rx's Medication Instructions Recorded ketorolac 10 mg tablet 10 mg PO Q6H PRN #14 tab 06/27/20 doxycycline hyclate 100 mg tablet 100 mg PO BID #20 tab 04/13/21 fluticasone propionate 50 1 spray INTRANASAL Q12H PRN #16 g 07/03/21 mcg/actuation nasal spray,suspension (Flonase Allergy Relief) Allergies Allergy/AdvReac Type Severity Reaction Status Date / Time Sulfa (Sulfonamide Allergy Verified 07/03/21 09:49 Antibiotics) Review of Systems Review of Systems ROS Unobtainable: All systems reviewed & are unremarkable except as noted in HPI and below Patient History Medical History Anxiety (Unknown) Degenerative disc disease at L5-S1 level (Unknown) GERD (gastroesophageal reflux disease) (Unknown) 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) Family History Family/Other Loud snoring Obesity Hypertension Heart disease Depression Anxiety Alcohol abuse Father Loud snoring Alcohol abuse Substance abuse Mother Loud snoring Substance abuse Sleep apnea Insomnia Obesity Hypertension Heart disease Depression Anxiety Alcohol abuse Family/Other Loud snoring Insomnia Anxiety Depression Alcohol abuse Substance abuse Family/Other Depression Anxiety Alcohol abuse Social History Smoking Status: Former smoker Smoking Status: Former smoker alcohol intake frequency: holidays/special occasions only Substance Use Type: heroin, opiates and methamphetamine Exam Narrative Exam Narrative: GEN: Male, alert and oriented x 3, patient appears to be in mild distress. HEENT: Atraumatic, pupils are equal round reactive to light, extraocular movements are intact, nares are clear, patient does have audible nasal congestion, TMs are clear with no fluid, there is no conjunctival pallor. Throat is clear without any exudates, erythema, tonsillar enlargement or uvular deviation, normal speech. HEART: Regular rate and rhythm without murmur, clicks, rubs. LUNGS:Lungs clear to auscultation, no wheezes, rales, crackles, chest moves symmetrically, no tachypnea or accessory muscle use. Speaks in full sentences. Patient has mild dry cough occasionally. ABD:bowel sounds normal, soft, non-tender, no guarding, rebound, rigidity, no masses noted, no hepatosplenomegaly :No CVA tenderness MSCL: Non-tender, no muscle atrophy, muscles strength 5/5 upper and lower extremities, full range of motion, normal gait. NEURO:CN 2-12 intact, sensation normal SKIN: No rash, erythema or other skin changes noted. Initial Vital Signs Initial Vital Signs: Vital Signs Temperature 98.3 F 07/03/21 09:45 Pulse Rate 93 H 07/03/21 09:45 Respiratory Rate 12 07/03/21 09:45 Blood Pressure 144/83 H 07/03/21 09:45 Pulse Oximetry 98 07/03/21 09:45 Course Orders Ordered: ED Orders 07/03/21 09:48 Chest [XR chest 2V] Stat 07/03/21 11:15 COVID19 -Nasal RAPID/Pre-Proc Stat Vital Signs Vital signs: Vital Signs - 8 hr 07/03/21 12:19 Pulse Rate 95 H Blood Pressure 142/87 H Pulse Oximetry 95 MDM - URI/Sore Throat Lab Data Labs: Lab Results 07/03/21 Range/Units 11:15 SARS-CoV-2 (PCR) Negative (Negative) Imaging Data Chest x-ray: Radiologist's Impression: Launch?Image [address] [address] XRay Report Signed Patient: Paulino Keyes MR#: [id number] : 1975 Acct:[id number] Age/Sex: 45 / M Date of Service: 07/03/21 Loc: ED Accession Number: [id number] ?? Procedure: XR chest 2V Ordering Provider: Tatianna Hall D.O. PROCEDURE:? XR CHEST 2V ? INDICATIONS:? Short of breath and congestion ? TECHNIQUE:? 2 views of the chest were acquired.? ? COMPARISON:? [facility], CR, CHEST FOR PICC PLACEMENT, 04/27/2017, 10:12.? [facility], CT, CT ANGIO CHEST PE PROTOCOL, 05/09/2021, 22:28. ? FINDINGS:? ? Surgical changes and devices:? None.? ? Lungs and pleura:? Lungs are clear.? No pleural effusions or pneumothorax.? ? Mediastinum:? Mediastinal contours are normal.? Heart size is normal.? ? Bones and chest wall:? No suspicious bony abnormalities.? Soft tissues appear unremarkable.? ? IMPRESSION:? ? Normal chest plain films. ? ? Dictated by: Nacho Gardner M.D. on 07/03/2021 at 9:53 ? ? Approved by: Nacho Gardner M.D. on 07/03/2021 at 9:53?? MDM Narrative Medical decision making narrative: This is a 45-year-old male seen here 4 days ago positive for strep, treated with Bicillin. On exam patient has some upper respiratory congestion and has otherwise reassuring exam patient has reported green mucus from his nose. Patient's exam does not suggest antibiotics for sinusitis and he likely has upper respiratory infection causing some of his chest congestion lungs are clear on exam, patient states that his throat and and strep throat symptoms have specifically improved. Chest x-ray is negative otherwise reassuring vital signs. Discussed may be helpful to have some Flonase and symptomatic treatment. Patient would like to repeat covid swab today which is negative. Discharge Plan Departure Patient Disposition: Home Clinical Impression: Upper respiratory infection Activity Restrictions/Additional Instructions: Your x-ray and findings today are negative. I think he would benefit from having some Flonase 1-2 sprays to each nostril to open up your sinuses and allow them to drain, you can also use a Neti pot or nasal saline rinse daily which may also help clear out your sinuses. These are available [id number]. [facility] [place] Please return for persistent fevers, shortness of breath that is worsening, they are worsening chest pain, persistent vomiting, new swelling, passing out other new or concerning symptoms. Prescriptions: New fluticasone propionate [Flonase Allergy Relief] 50 mcg/actuation spray,suspension 1 spray intranasal Q12H PRN (Reason: nasal congestion) Qty: 16 0RF Rx Instructions: administer into each nostril No Action ketorolac 10 mg tablet 10 mg PO Q6H PRN (Reason: pain) Qty: 14 0RF methadone 40 mg tablet,soluble 35 mg PO DAILY 0RF doxycycline hyclate 100 mg tablet 100 mg PO BID Qty: 20 0RF
[2021-07-03 11:36] LABS: COVID19 -Nasal RAPID Negative (Negative)
[2021-07-03 12:19] VITALS: BP 142/87; PULSE 95; O2SAT 95
== END 2021-07-03 12:20 | disposition home or self-care (01) ==
PROVIDERS: Emergency Provider Emergency Medicine
DX: J06.9 Acute upper respiratory infection, unspecified (principal); Z87.891 Personal history of nicotine dependence; Z20.822 Contact with and (suspected) exposure to COVID-19
CPT/HCPCS: 71046; 87635; 99282; 99283; C9803

== ENCOUNTER 2021-08-19 05:15 | Emergency (ER) | payer OTHER, MEDICAID, SELFPAY ==
[2021-08-19 05:26] VITALS: BP 156/88; PULSE 116; RESP 18; TEMP 36.6; O2SAT 97; BMI 32.5
--- NOTE | 2021-08-19 05:46 | ED_ITS ---
HPI - Dental/Oral General Chief complaint: Dental/Oral Stated complaint: right cheek swollen Time Seen by Provider: 08/19/21 05:26 Mode of arrival: Ambulatory History of Present Illness HPI Narrative: 45-year-old male former smoker with history of IV drug abuse presents with a chief complaint of dental pain and facial selling developing over the past day or 2. He states that he thinks he cracked a tooth a week or 2 ago and had pain but noticed the swelling over the past air to. He denies any fever chills nor nausea, vomiting or diarrhea. He has no trouble swallowing or breathing. He does have a dentist but has not yet contacted them. Related Data Home Medications Medication Instructions Recorded Confirmed methadone 40 mg soluble tablet 35 mg PO DAILY 05/30/20 05/30/20 Previous Rx's Medication Instructions Recorded ketorolac 10 mg tablet 10 mg PO Q6H PRN pain #14 tabs 06/27/20 doxycycline hyclate 100 mg tablet 100 mg PO BID #20 tabs 04/13/21 fluticasone propionate 50 1 spray intranasal Q12H PRN nasal 07/03/21 mcg/actuation nasal congestion #16 grams spray,suspension (Flonase Allergy Relief) amoxicillin 875 mg-potassium 1 tab PO Q12H #20 tabs 08/19/21 clavulanate 125 mg tablet Allergies Allergy/AdvReac Type Severity Reaction Status Date / Time Sulfa (Sulfonamide Allergy Verified 07/03/21 09:49 Antibiotics) Review of Systems Review of Systems Narrative: GENERAL: See HPI HEENT: See HPI RESPIRATORY: Denies dyspnea, cough, wheezing, hemoptysis, sputum. CARDIOVASCULAR: Denies chest pain, palpitations, orthopnea, edema, GASTROINTESTINAL: Denies nausea, vomiting, abdominal pain, diarrhea, constipation, melena. : Denies dysuria, frequency, incontinence, hematuria, urinary retention. MUSCULOSKELETAL: denies weakness, joint pain, or bony pain SKIN: Denies rash, skin lesions, or other NEUROLOGIC: Denies weakness, headache, numbness, change in speech, confusion, seizures, incoordination. PSYCHIATRIC: No concerning psychosocial issues. 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) Family History Family/Other Loud snoring Obesity Hypertension Heart disease Depression Anxiety Alcohol abuse Father Loud snoring Alcohol abuse Substance abuse Mother Loud snoring Sleep apnea Insomnia Obesity Hypertension Heart disease Depression Anxiety Alcohol abuse Substance abuse Family/Other Loud snoring Insomnia Anxiety Depression Alcohol abuse Substance abuse Family/Other Depression Anxiety Alcohol abuse Social History Smoking Status: Former smoker Smoking Status: Former smoker alcohol intake frequency: holidays/special occasions only Substance Use Type: heroin, opiates and methamphetamine Exam Narrative Exam Narrative: GEN: AOx3 and in mild distress EYES: Pupils are equal, round, and reactive to light and accommodation. Extraoccular muscles are intact bilaterally. There is no subconjunctival hemorrhage or exudate. ENT: Mild R facial swelling, no trouble swallowing, airway patent. Poor dentition throughout, small area of fluctuance just superior to R canine CHEST: Lungs are clear to auscultation bilaterally and free of wheezes, rales, or rhonchi. Heart rate is regular rhythm, there are no murmurs, clicks, rubs, or gallops. There is no chest wall tenderness. ABD: Abdomen is soft and nontender. There is no guarding or rebound. Bowel sounds are normal in all 4 quadrants. There is no mass or organomegaly. EXT: Full painless ROM of all extremities with no loss of sensation or strength. SKIN: Warm, pink, and dry. No erythema or rash Initial Vital Signs Initial Vital Signs: Vital Signs Temperature 97.8 F 08/19/21 05:26 Pulse Rate 116 H 08/19/21 05:26 Respiratory Rate 18 08/19/21 05:26 Blood Pressure 156/88 H 08/19/21 05:26 Pulse Oximetry 97 08/19/21 05:26 Oxygen Delivery Method 08/19/21 05:26 Procedures Abscess I/D I&D #1: Site: oral Side (if applicable): right Local Anesthetic: lidocaine 2% and with epi Amount of anesthesia used (mL): 3 Technique: needle aspiration Amount of fluid expressed (mL): 2 Irrigation: No Course Orders Ordered: Discontinued Medications Amoxicillin/Clavulanate Potassium (Amoxicillin/Clav 875/125 Mg) 1 tab PO NOW ONE Stop: 08/19/21 05:27 Lidocaine/Epinephrine (Lidocaine 2% W/Epi Inj) 1 ml INJ INTRA-OP ONE Stop: 08/19/21 05:27 Vital Signs Vital signs: Vital Signs - 8 hr 08/19/21 05:26 Temperature 97.8 F Pulse Rate 116 H Respiratory Rate 18 Blood Pressure 156/88 H Pulse Oximetry 97 Oxygen Delivery Method Room Air Discharge Plan Departure Patient Disposition: Home Clinical Impression: Dental abscess Instructions: Tooth Abscess, DI for Dental Pain Activity Restrictions/Additional Instructions: *You have been diagnosed with [dental infection with abscess] *What to do: *Please continue to take your regular medications as directed. [ x] New medication prescriptions sent to your pharmacy: [[facility]] [ ] New medication written as a paper prescription [ ] No new medications given *Please follow up with your primary dental provider in 2-3 days, call for an ap pointment. Let them know you were seen in the Emergency Department and that we ask that you be seen in follow up. *Return to Emergency Department if you should have any new, worsening or concerning symptoms Prescriptions: New amoxicillin-pot clavulanate 875-125 mg tablet 1 tab PO Q12H Qty: 20 0RF No Action ketorolac 10 mg tablet 10 mg PO Q6H PRN (Reason: pain) Qty: 14 0RF fluticasone propionate [Flonase Allergy Relief] 50 mcg/actuation spray,suspension 1 spray intranasal Q12H PRN (Reason: nasal congestion) Qty: 16 0RF Rx Instructions: administer into each nostril methadone 40 mg tablet,soluble 35 mg PO DAILY doxycycline hyclate 100 mg tablet 100 mg PO BID Qty: 20 0RF
[2021-08-19] MEDS: AMOXICILLIN/CLAV 875/125 MG 1 TAB PO (05:49)
[2021-08-19] MEDS: LIDOCAINE 2% W/EPI INJ 1 ML INJ (05:52)
== END 2021-08-19 05:58 | disposition home or self-care (01) ==
PROVIDERS: Emergency Provider Emergency Medicine
DX: K04.7 Periapical abscess without sinus (principal)
CPT/HCPCS: 10060; 99283

== ENCOUNTER 2022-01-10 12:38 | Emergency (ER) | payer OTHER, MEDICAID, SELFPAY ==
[2022-01-10 13:11] VITALS: BP 144/72; PULSE 113; RESP 20; TEMP 36.6; O2SAT 99; BMI 34.3
--- NOTE | 2022-01-10 15:57 | PC.NURSE ---
Patient called at 1450 and 1555 with no answer.
== END 2022-01-10 15:55 | disposition left against medical advice (07) ==
PROVIDERS: Emergency Provider Emergency Medicine
DX: L08.9 Local infection of the skin and subcutaneous tissue, unspecified (principal)
CPT/HCPCS: 99281

== ENCOUNTER 2022-01-13 17:52 | Emergency (ER) | payer OTHER, MEDICAID, SELFPAY ==
[2022-01-13 17:59] VITALS: BP 174/98; PULSE 114; RESP 18; TEMP 36.6; O2SAT 98
--- NOTE | 2022-01-13 18:00 | ED.SKABFB ---
HPI - Skin/Abscess/Foreign Bdy General Chief complaint: Skin/Abscess/Foreign Body Stated complaint: Here a few days ago, Leg worsening Time Seen by Provider: 01/13/22 18:00 History of Present Illness HPI narrative: 45-year-old male former smoker with history of IV drug abuse and prior skin infections presents with a chief complaint of pain, redness and swelling of his left lower extremity for the past few days. He denies fever or chills. He is not dizzy nor weak or lightheaded. He denies any chest pain or shortness of breath. He states that he had been doing quite well regarding the use of IV drugs but admits to skin popping in his medial left knee a few days ago and symptoms started in the aftermath. He denies any drainage and states the pain seems to be worse with palpation and walking and improves with rest. He denies any pain in his thigh. He denies any red streaks extending upwards and is otherwise well and free of complaint Related Data Home Medications Medication Instructions Recorded Confirmed methadone 40 mg soluble tablet 35 mg PO DAILY 05/30/20 05/30/20 Previous Rx's Medication Instructions Recorded ketorolac 10 mg tablet 10 mg PO Q6H PRN pain #14 tabs 06/27/20 doxycycline hyclate 100 mg tablet 100 mg PO BID #20 tabs 04/13/21 fluticasone propionate 50 1 spray intranasal Q12H PRN nasal 07/03/21 mcg/actuation nasal congestion #16 grams spray,suspension (Flonase Allergy Relief) amoxicillin 875 mg-potassium 1 tab PO Q12H #20 tabs 08/19/21 clavulanate 125 mg tablet doxycycline hyclate 100 mg tablet 100 mg PO BID #20 tabs 01/13/22 Allergies Allergy/AdvReac Type Severity Reaction Status Date / Time Sulfa (Sulfonamide Allergy Unknown Verified 01/10/22 13:11 Antibiotics) Review of Systems Review of Systems Narrative: GENERAL: Denies chills, fatigue, malaise, fever, sweats. HEENT: Denies sinus pain, ear pain, sore throat, difficulty swallowing, dizziness. RESPIRATORY: Denies dyspnea, cough, wheezing, hemoptysis, sputum. CARDIOVASCULAR: Denies chest pain, palpitations, orthopnea, edema, GASTROINTESTINAL: Denies nausea, vomiting, abdominal pain, diarrhea, constipation, melena. : Denies dysuria, frequency, incontinence, hematuria, urinary retention. MUSCULOSKELETAL: denies weakness, joint pain, or bony pain SKIN: See HPI NEUROLOGIC: Denies weakness, headache, numbness, change in speech, confusion, seizures, incoordination. PSYCHIATRIC: No concerning psychosocial issues. 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) Family History Family/Other Loud snoring Obesity Hypertension Heart disease Depression Anxiety Alcohol abuse Father Loud snoring Alcohol abuse Substance abuse Mother Loud snoring Sleep apnea Insomnia Obesity Hypertension Heart disease Depression Anxiety Alcohol abuse Substance abuse Family/Other Loud snoring Insomnia Anxiety Depression Alcohol abuse Substance abuse Family/Other Depression Anxiety Alcohol abuse Social History Smoking Status: Former smoker Smoking Status: Former smoker alcohol intake frequency: holidays/special occasions only Substance Use Type: heroin, opiates and methamphetamine Exam Narrative Exam Narrative: GENERAL: [46] year old patient appears stated age. Well-developed patient, in mild distress. HEAD: Atraumatic. Normocephalic. EYES: Pupils equal round and reactive. Extraocular motions intact. No scleral icterus. No injection or drainage. ENT: Nose without bleeding, purulent drainage. Throat without erythema, tonsillar hypertrophy or exudate. Airway patent. NECK: Trachea midline. Non tender CARDIOVASCULAR: Regular rate and rhythm without murmurs, gallops, or rubs. RESPIRATORY: Clear to auscultation. Breath sounds equal bilaterally. No wheezes, rales, or rhonchi. GASTROINTESTINAL: Abdomen soft, non-tender, nondistended. EXTREMITIES: Left lower extremity slightly more edematous, erythema is noted, no fluctuance or induration noted, compartments are soft patient has intact distal sensation and cap refill. BACK: Nontender without deformity or crepitance. No flank tenderness. NEURO: AOx3. SKIN: No rash or erythema of visible areas Initial Vital Signs Initial Vital Signs: Vital Signs Temperature 97.8 F 01/13/22 17:59 Pulse Rate 114 H 01/13/22 17:59 Respiratory Rate 18 01/13/22 17:59 Blood Pressure 174/98 H 01/13/22 17:59 Pulse Oximetry 98 01/13/22 17:59 Oxygen Delivery Method 01/13/22 17:59 Course Orders Ordered: ED Orders 01/13/22 18:28 US periph venous low extrem lt Stat Discontinued Medications Doxycycline Hyclate (Doxycycline Hyclate 100 Mg Tablet) 100 mg PO NOW ONE Stop: 01/13/22 19:51 Last Admin: 01/13/22 19:57 Dose: 100 mg Documented By: RUBINA Vital Signs Vital signs: Vital Signs - 8 hr 01/13/22 17:59 01/13/22 20:07 Temperature 97.8 F Pulse Rate 114 H 98 H Respiratory Rate 18 16 Blood Pressure 174/98 H 168/98 H Pulse Oximetry 98 100 Oxygen Delivery Method Room Air Room Air MDM - Skin/Abscess/Foreign Bdy Imaging Data US - DVT: Radiologist's Impression: [place] [address] Ultrasound Report Signed Patient: Paulino Keyes MR#: [id number] : 1975 Acct:[id number] Age/Sex: 46 / M Date of Service: 01/13/22 Loc: ED Accession Number: [id number] ?? Procedure: US periph venous low extrem lt Ordering Provider: Tye Watson D.O. PROCEDURE:? US PERIPH VENOUS LOW EXTREM LT ? INDICATIONS:? PAIN, REDNESS, EDEMA ? TECHNIQUE:? Real-time imaging, as well as color and pulse Doppler interrogation, were performed of the lower extremity deep veins from the inguinal ligament to the popliteal fossa.? ? COMPARISON:? None. ? FINDINGS:? The common femoral, femoral and popliteal veins are normally compressible, and free of intraluminal thrombus.? Color and pulse Doppler demonstrate normal phasic intraluminal flow.? There is normal augmentation response to distal compression maneuver. ? ? IMPRESSION:? No DVT in the left lower extremity ? ? Dictated by: Sarthak Smith M.D. on 01/13/2022 at 19:28 ? ? Approved by: Sarthak Smith M.D. on 01/13/2022 at 19:28 ? MDM Narrative Medical decision making narrative: Patient with reassuring history and physical exam, he has no systemic complaints such as fever or chills nor nausea or vomiting. He has no chest pain or shortness of breath. Denies any injury but states that he had attempted to inject into his left lower extremity in symptoms started in the aftermath. Ultrasound demonstrates no DVT, Winston cyst or obvious abscess. His compartments are soft and there is no evidence of compartment syndrome. No fluctuance to suggest abscess. Patient appropriate for oral antibiotics, labs considered but not thought to be significantly important psoas to change the course. Return precautions given and questions answered to his apparent satisfaction Discharge Plan Departure Patient Disposition: Home Clinical Impression: Left leg cellulitis Instructions: DI for Cellulitis -- Adult Activity Restrictions/Additional Instructions: *You have been diagnosed with [left leg cellulitis, no evidence of abscess or deep vein clot] *What to do: *Please continue to take your regular medications as directed. [x ] New medication prescriptions sent to your pharmacy: [[facility] ] [ ] New medication written as a paper prescription [ ] No new medications given *Please follow up with your primary care provider in 2-3 days, call for an appointment. Let them know you were seen in the Emergency Department and that we ask that you be seen in follow up. We will electronically transmit a record of today's note if your PCP is in our system *If you do not have a primary care provider please contact the [facility] Resource line at [phone]. They will ask some questions about your medical history and help get you set up with a doctor in the community. *Return to Emergency Department if you should have any new, worsening or concerning symptoms, such as [fever greater than 101 F, shaking chills, worsening pain, persistent vomiting or other bothersome symptoms] Prescriptions: New doxycycline hyclate 100 mg tablet 100 mg PO BID Qty: 20 0RF No Action ketorolac 10 mg tablet 10 mg PO Q6H PRN (Reason: pain) Qty: 14 0RF fluticasone propionate [Flonase Allergy Relief] 50 mcg/actuation spray,suspension 1 spray intranasal Q12H PRN (Reason: nasal congestion) Qty: 16 0RF Rx Instructions: administer into each nostril amoxicillin-pot clavulanate 875-125 mg tablet 1 tab PO Q12H Qty: 20 0RF methadone 40 mg tablet,soluble 35 mg PO DAILY doxycycline hyclate 100 mg tablet 100 mg PO BID Qty: 20 0RF Visit Report Forms: Patient Portal/API
--- NOTE | 2022-01-13 18:28 | DI.US.S_ITS ---
PROCEDURE: US PERIPH VENOUS LOW EXTREM LT INDICATIONS: PAIN, REDNESS, EDEMA TECHNIQUE: Real-time imaging, as well as color and pulse Doppler interrogation, were performed of the lower extremity deep veins from the inguinal ligament to the popliteal fossa. COMPARISON: None. FINDINGS: The common femoral, femoral and popliteal veins are normally compressible, and free of intraluminal thrombus. Color and pulse Doppler demonstrate normal phasic intraluminal flow. There is normal augmentation response to distal compression maneuver. IMPRESSION: No DVT in the left lower extremity Dictated by: Sarthak Smith M.D. on 01/13/2022 at 19:28 Approved by: Sarthak Smith M.D. on 01/13/2022 at 19:28
[2022-01-13] MEDS: DOXYCYCLINE HYCLATE 100 MG TABLET PO (19:57)
[2022-01-13 20:07] VITALS: BP 168/98; PULSE 98; RESP 16; O2SAT 100
== END 2022-01-13 20:08 | disposition home or self-care (01) ==
PROVIDERS: Emergency Provider Emergency Medicine
DX: L03.116 Cellulitis of left lower limb (principal)
CPT/HCPCS: 93971; 99283

== ENCOUNTER 2022-01-23 17:02 | Emergency (ER) | payer OTHER, MEDICAID, SELFPAY ==
[2022-01-23 17:26] VITALS: BP 163/88; PULSE 99; RESP 14; TEMP 36.8; O2SAT 98; BMI 32.5
== END 2022-01-23 18:13 | disposition left against medical advice (07) ==
PROVIDERS: Emergency Provider Emergency Medicine
DX: M79.672 Pain in left foot (principal)
CPT/HCPCS: 99281

== ENCOUNTER 2022-01-25 09:31 | Emergency (ER) | payer OTHER, MEDICAID, SELFPAY ==
[2022-01-25 09:46] VITALS: BP 115/87; PULSE 112; RESP 20; TEMP 36.6; O2SAT 98; BMI 32.5
[2022-01-25 09:50] VITALS: PULSE 110
--- NOTE | 2022-01-25 09:52 | PC.NURSE ---
pt states leg swelling started the day after he injected iv drugs to the area.
--- NOTE | 2022-01-25 10:09 | ED_ITS ---
HPI - Extremity Injury (Lower) General Chief Complaint: Extremity Injury, Lower Stated Complaint: Left leg swelling Time Seen by Provider: 01/25/22 09:54 Source: patient Mode of arrival: Ambulatory History of Present Illness HPI Narrative: Patient is a 46-year-old male. A history of IV drug abuse. Was seen here in the emergency department approximately 2 weeks ago for what was diagnosed as an infection of his left lower extremity. It started to occur after he did skin popping on the medial part of his left knee. He developed redness afterwards. During the last visit he had an ultrasound of his lower extremity which did not show any signs of a DVT. Was diagnosed with cellulitis. Was sent home with doxycycline. No cultures were obtained because there was nothing to culture. He has been taking his doxycycline as directed and this morning was his last dose. He states that the redness has continued. Not necessarily worse than what it was before but also not better. He states that overall he feels well. No fevers. No fatigue. He did have a change in taste so he was concerned about COVID. This morning he also states that he had some shortness of breath when he woke up. He felt like his lungs were full of fluid. That seems to have now resolved. He denies any further drug use and injections into his skin. States that he is getting some pain in his leg. The swelling does not seem to get worse as the day goes on and while he is standing. Related Data Home Medications Medication Instructions Recorded Confirmed methadone 40 mg soluble tablet 35 mg PO DAILY 05/30/20 05/30/20 Previous Rx's Medication Instructions Recorded ketorolac 10 mg tablet 10 mg PO Q6H PRN pain #14 tabs 06/27/20 doxycycline hyclate 100 mg tablet 100 mg PO BID #20 tabs 04/13/21 fluticasone propionate 50 1 spray intranasal Q12H PRN nasal 07/03/21 mcg/actuation nasal congestion #16 grams spray,suspension (Flonase Allergy Relief) amoxicillin 875 mg-potassium 1 tab PO Q12H #20 tabs 08/19/21 clavulanate 125 mg tablet doxycycline hyclate 100 mg tablet 100 mg PO BID #20 tabs 01/13/22 cephalexin 500 mg capsule 500 mg PO QID 7 days #28 caps 01/25/22 furosemide 20 mg tablet (Lasix) 20 mg PO DAILY 3 days #3 tabs 01/25/22 Allergies Allergy/AdvReac Type Severity Reaction Status Date / Time Sulfa (Sulfonamide Allergy Unknown Verified 01/23/22 17:29 Antibiotics) Review of Systems Review of Systems ROS Unobtainable: All systems reviewed & are unremarkable except as noted in HPI and below Patient History Medical History Anxiety (Unknown) Degenerative disc disease at L5-S1 level (Unknown) GERD (gastroesophageal reflux disease) (Unknown) 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) Family History Family/Other Loud snoring Obesity Hypertension Heart disease Depression Anxiety Alcohol abuse Father Loud snoring Alcohol abuse Substance abuse Mother Loud snoring Sleep apnea Insomnia Obesity Hypertension Heart disease Depression Anxiety Alcohol abuse Substance abuse Family/Other Loud snoring Insomnia Anxiety Depression Alcohol abuse Substance abuse Family/Other Depression Anxiety Alcohol abuse Social History Smoking Status: Former smoker Smoking Status: Former smoker alcohol intake frequency: holidays/special occasions only Substance Use Type: heroin, opiates, IV drugs and methamphetamine Exam Initial Vital Signs Initial Vital Signs: Vital Signs Temperature 97.9 F 01/25/22 09:46 Pulse Rate 112 H 01/25/22 09:46 Respiratory Rate 20 01/25/22 09:46 Blood Pressure 115/87 01/25/22 09:46 Pulse Oximetry 98 01/25/22 09:46 Oxygen Delivery Method 01/25/22 09:46 Const General: comfortable and No ill appearing HENMT Head: normal to inspection and normocephalic Resp Effort & Inspection: normal respiratory effort Cardio Rate: bradycardic Rhythm: regular rhythm GI Inspection: normal to inspection Skin Other: Some wounds that appear to be healing on his left lower extremity distal to his knee. He does have redness circumferentially to his left lower extremity distal to his knee to his foot. There are no ulcerations. No blisters. No fluctuance. Neuro Sensory Exam: no sensory deficits noted Extrem Other: Swelling to his left lower extremity distal to his knee. Compartments are soft. He can flex and extend at the ankle however some difficulty because of the swelling. He is ambulatory. Psych Appearance: grossly normal and well kempt Course Orders Ordered: ED Orders 01/25/22 10:09 XR chest 1V Stat XR tibia fibula LT 2V Stat 12/10/22 10:33 EKG-12 Lead Stat 01/25/22 10:35 COVID19 -Nasal RAPID/Pre-Proc Stat 01/25/22 10:50 C-Reactive Protein Quant Stat Complete Blood Count AUTO DIFF Stat Comprehensive Metabolic Panel Stat Erythrocyte Sedimentation Rate Stat Lactate (Lactic Acid) Stat Lipase Stat NT-proBNP (BNP-Adult 18+) Stat Troponin & CK Cardiac Panel Stat Vital Signs Vital signs: Vital Signs - 8 hr 01/25/22 09:46 01/25/22 09:50 Temperature 97.9 F Pulse Rate 112 H Pulse Rate [Left Dorsalis Pedis] 110 H Respiratory Rate 20 Blood Pressure 115/87 Pulse Oximetry 98 Oxygen Delivery Method Room Air MDM - Extremity Injury (Lower) Lab Data Result diagrams: 01/25/22 10:50 01/25/22 10:50 Labs: Lab Results 01/25/22 01/25/22 01/25/22 Range/Units 10:35 10:50 10:50 WBC 6.8 (4.5-11.0) X10^3/uL RBC 4.90 (4.5-5.9) X10^6/uL Hgb 14.1 (13.5-17.5) g/dL Hct 40.8 L (41-53) % MCV 83.3 (80-100) fL MCH 28.9 (26-34) PG MCHC 34.7 (30-36) % RDW 12.9 (11.6-14.8) % Plt Count 300 (150-400) X10^3/uL Neut % (Auto) 58.9 (50-75) % Lymph % (Auto) 30.4 (25-40) % [place] % (Auto) 5.1 (3-14) % Eos % (Auto) 4.9 H (2-4) % Baso % (Auto) 0.7 (0-2) % Neut # (Auto) 4000 (8026-5003) /uL Lymph # (Auto) 2100 (0007-9984) /uL [place] # (Auto) 400 (0-900) /uL Eos # (Auto) 300 (0-450) /uL Baso # (Auto) 0 (0-100) /uL ESR (0-15) MM/HR Sodium 141 (137-145) mmol/L Potassium 4.1 (3.4-5.1) mmol/L Chloride 103 (98-107) mmol/L Carbon Dioxide 28 (22-32) mmol/L BUN 19 (9-20) mg/dL Creatinine 0.73 (0.66-1.25) mg/dL Estimated GFR > 60 (>60) mL/min BUN/Creatinine Ratio 26.0 H (6-22) Glucose 107 H (70-100) mg/dL Lactate (0.7-2.1) mmol/L Calcium 9.2 (8.4-10.2) mg/dL Total Bilirubin 0.7 (0.2-1.3) mg/dL AST 51 (17-59) IU/L ALT 28 (<50) IU/L Alkaline Phosphatase 85 (38-126) U/L Total Creatine Kinase (55-170) U/L Troponin I (0.01-0.034) ng/mL C-Reactive Protein (<1.0) mg/dL NT-Pro-B Natriuret Pep (<125) pg/mL Total Protein 8.2 (6.3-8.2) g/dL Albumin 4.6 (3.5-5.0) g/dL Globulin 3.6 (1.7-4.1) g/dL Albumin/Globulin Ratio 1.3 (1.0-2.8) Lipase (23-300) U/L SARS-CoV-2 (PCR) Positive H (Negative) 01/25/22 01/25/22 01/25/22 Range/Units 10:50 10:50 10:50 WBC (4.5-11.0) X10^3/uL RBC (4.5-5.9) X10^6/uL Hgb (13.5-17.5) g/dL Hct (41-53) % MCV (80-100) fL MCH (26-34) PG MCHC (30-36) % RDW (11.6-14.8) % Plt Count (150-400) X10^3/uL Neut % (Auto) (50-75) % Lymph % (Auto) (25-40) % [place] % (Auto) (3-14) % Eos % (Auto) (2-4) % Baso % (Auto) (0-2) % Neut # (Auto) (7010-4582) /uL Lymph # (Auto) (6780-1335) /uL [place] # (Auto) (0-900) /uL Eos # (Auto) (0-450) /uL Baso # (Auto) (0-100) /uL ESR 11 (0-15) MM/HR Sodium (137-145) mmol/L Potassium (3.4-5.1) mmol/L Chloride (98-107) mmol/L Carbon Dioxide (22-32) mmol/L BUN (9-20) mg/dL Creatinine (0.66-1.25) mg/dL Estimated GFR (>60) mL/min BUN/Creatinine Ratio (6-22) Glucose (70-100) mg/dL Lactate 1.7 (0.7-2.1) mmol/L Calcium (8.4-10.2) mg/dL Total Bilirubin (0.2-1.3) mg/dL AST (17-59) IU/L ALT (<50) IU/L Alkaline Phosphatase (38-126) U/L Total Creatine Kinase 282 H (55-170) U/L Troponin I < 0.012 (0.01-0.034) ng/mL C-Reactive Protein < 0.5 (<1.0) mg/dL NT-Pro-B Natriuret Pep 18 (<125) pg/mL Total Protein (6.3-8.2) g/dL Albumin (3.5-5.0) g/dL Globulin (1.7-4.1) g/dL Albumin/Globulin Ratio (1.0-2.8) Lipase 56 (23-300) U/L SARS-CoV-2 (PCR) (Negative) Imaging Data Extremity x-ray #1: Radiologist's Impression: [address] [address] XRay Report Signed Patient: Paulino Keyes MR#: [id number] : 1975 Acct:[id number] Age/Sex: 46 / M Date of Service: 01/25/22 Loc: ED Accession Number: [id number] ?? Procedure: XR tibia fibula LT 2V Ordering Provider: Armando Laboy D.O. PROCEDURE:? XR TIBIA FIBULA LT 2V ? INDICATIONS:? swelling and redness eval for free air ? TECHNIQUE:? 2 views of the tibia and fibula were acquired.? ? COMPARISON:? None. ? FINDINGS:? ? Bones:? No fractures or dislocations.? No suspicious bony lesions.? ? Soft tissues:? No suspicious soft tissue calcifications or masses.? ? IMPRESSION:? No acute fracture. No osseous lesion. If symptoms and/or clinical suspicion for pathology persist, further assessment with repeat, or advanced imaging (e.g., CT, MRI, or bone scan) may be helpful for further assessment. ? ? Dictated by: Mireille Lowe M.D. on 01/25/2022 at 9:37 ? ? Approved by: Mireille Lowe M.D. on 01/25/2022 at 9:37?? Chest x-ray: Radiologist's Impression: [address] [address] XRay Report Signed Patient: Paulino Keyes MR#: [id number] : 1975 Acct:[id number] Age/Sex: 46 / M Date of Service: 01/25/22 Loc: ED Accession Number: [id number] ?? Procedure: XR chest 1V Ordering Provider: Armando Laboy D.O. PROCEDURE:? XR CHEST 1V ? INDICATIONS:? SOB ? TECHNIQUE:? One view of the chest was acquired.? ? COMPARISON:? [facility], CR, XR CHEST 2V, 07/03/2021, 10:30. ? FINDINGS:? ? Surgical changes and devices:? None.? ? Lungs and pleura:? Lungs are clear.? No pleural effusions or pneumothorax.? ? Mediastinum:? Mediastinal contours appear normal.? Heart size is normal.? ? Bones and chest wall:? No suspicious bony lesions.? Overlying soft tissues appear unremarkable.? ? IMPRESSION:? No acute process. ? ? Dictated by: Mireille Lowe M.D. on 01/25/2022 at 9:36 ? ? Approved by: Mireille Lowe M.D. on 01/25/2022 at 9:37?? ECG Data Attestation: I personally reviewed and interpreted this ECG as follows: Interpretation: Sinus rhythm Ventricular rate 96 Normal axis Normal QRS Normal QTC No ST T wave changes MDM Narrative Medical decision making narrative: Workup here in the emergency department as relatively unremarkable. No leukocytosis. Lactate normal. ESR and CRP negative. X-ray shows no signs of free air. Patient not in heart failure. Was tachycardic upon arrival but this improved without specific intervention. Low suspicion for heart failure. Patient has no defined abscess. Compartments are soft. Has had a negative DVT ultrasound. He reports he has not reinjected himself in this area. He does have redness. Minimal warmth. Will do a 2nd course of antibiotics. Will also provide Lasix to try to help some of the swelling. He was also COVID positive. This is an incidental finding. He was told of this diagnosis. He was given return precautions. He expressed understanding and agreement. Discharge Plan Departure Patient Disposition: Home Clinical Impression: Left leg cellulitis, COVID-19 Instructions: Cellulitis, COVID-19 Activity Restrictions/Additional Instructions: A prescription for a new antibiotic was sent to the pharmacy of your choice along with some medicine to try to help with the swelling. Also recommend that you try to keep your leg elevated. You can also use compression stockings or even wrapping your leg to try to help with the swelling as well. Contact your primary doctor for a follow-up. Return to the emergency department for any new symptoms. Your COVID test was also positive today. Please follow all current CDC guidelines with regard to quarantine. Prescriptions: New cephalexin 500 mg capsule 500 mg PO QID 7 Days Qty: 28 0RF furosemide [Lasix] 20 mg tablet 20 mg PO DAILY 3 Days Qty: 3 0RF No Action ketorolac 10 mg tablet 10 mg PO Q6H PRN (Reason: pain) Qty: 14 0RF fluticasone propionate [Flonase Allergy Relief] 50 mcg/actuation spray,suspension 1 spray intranasal Q12H PRN (Reason: nasal congestion) Qty: 16 0RF Rx Instructions: administer into each nostril amoxicillin-pot clavulanate 875-125 mg tablet 1 tab PO Q12H Qty: 20 0RF doxycycline hyclate 100 mg tablet 100 mg PO BID Qty: 20 0RF methadone 40 mg tablet,soluble 35 mg PO DAILY doxycycline hyclate 100 mg tablet 100 mg PO BID Qty: 20 0RF
--- NOTE | 2022-01-25 10:09 | DI.RAD.S_ITS ---
PROCEDURE: XR TIBIA FIBULA LT 2V INDICATIONS: swelling and redness eval for free air TECHNIQUE: 2 views of the tibia and fibula were acquired. COMPARISON: None. FINDINGS: Bones: No fractures or dislocations. No suspicious bony lesions. Soft tissues: No suspicious soft tissue calcifications or masses. IMPRESSION: No acute fracture. No osseous lesion. If symptoms and/or clinical suspicion for pathology persist, further assessment with repeat, or advanced imaging (e.g., CT, MRI, or bone scan) may be helpful for further assessment. Dictated by: Mireille Lowe M.D. on 01/25/2022 at 9:37 Approved by: Mireille Lowe M.D. on 01/25/2022 at 9:37
--- NOTE | 2022-01-25 10:09 | DI.RAD.S_ITS ---
PROCEDURE: XR CHEST 1V INDICATIONS: SOB TECHNIQUE: One view of the chest was acquired. COMPARISON: [facility], CR, XR CHEST 2V, 07/03/2021, 10:30. FINDINGS: Surgical changes and devices: None. Lungs and pleura: Lungs are clear. No pleural effusions or pneumothorax. Mediastinum: Mediastinal contours appear normal. Heart size is normal. Bones and chest wall: No suspicious bony lesions. Overlying soft tissues appear unremarkable. IMPRESSION: No acute process. Dictated by: Mireille Lowe M.D. on 01/25/2022 at 9:36 Approved by: Mireille Lowe M.D. on 01/25/2022 at 9:37
[2022-01-25 11:10] LABS: COVID19 -Nasal RAPID POSITIVE (Negative)
[2022-01-25 11:15] LABS: Add Manual Diff / Slide Review NO; Basophils Absolute Auto 0 /uL (0-100); Basophils Percent Auto 0.7 % (0-2); Eosinophils Absolute Auto 300 /uL (0-450); Eosinophils Percent Auto 4.9 % (2-4); Hematocrit 40.8 % (41-53); Hemoglobin 14.1 g/dL (13.5-17.5); Lymphocytes Absolute Auto 2100 /uL (1100-4500); Lymphocytes Percent Auto 30.4 % (25-40); Mean Corpuscular HGB Conc 34.7 % (30-36); Mean Corpuscular Hemoglobin 28.9 PG (26-34); Mean Corpuscular Volume 83.3 fL (80-100); Monocytes Absolute Auto 400 /uL (0-900); Monocytes Percent Auto 5.1 % (3-14); Neutrophils Absolute Auto 4000 /uL (1500-7000); Neutrophils Percent Auto 58.9 % (50-75); Platelet Count 300 X10^3/uL (150-400); Red Cell Distribution Width 12.9 % (11.6-14.8); White Blood Cell Count 6.8 X10^3/uL (4.5-11.0)
[2022-01-25 11:28] LABS: Alanine Aminotransferase 28 IU/L (<50); Albumin 4.6 g/dL (3.5-5.0); Albumin Globulin Ratio 1.3 (1.0-2.8); Alkaline Phosphatase 85 U/L (38-126); Aspartate Aminotransferase 51 IU/L (17-59); Bilirubin Total 0.7 mg/dL (0.2-1.3); Blood Urea Nitrogen 19 mg/dL (9-20); Calcium 9.2 mg/dL (8.4-10.2); Carbon Dioxide 28 mmol/L (22-32); Chloride 103 mmol/L (98-107); Estimated Glomerular Filt Rate > 60 mL/min (>60); Globulin 3.6 g/dL (1.7-4.1); Glucose 107 mg/dL (70-100); Potassium 4.1 mmol/L (3.4-5.1); Sodium 141 mmol/L (137-145); Total Protein 8.2 g/dL (6.3-8.2)
[2022-01-25 11:30] LABS: C-Reactive Protein Quant < 0.5 mg/dL (<1.0); Creatine Kinase 282 U/L (55-170); Lactate (Lactic Acid) 1.7 mmol/L (0.7-2.1); Lipase 56 U/L (23-300)
[2022-01-25 11:40] LABS: NT-proBNP (BNP-Adult 18+) 18 pg/mL (<125); Troponin I < 0.012 ng/mL (0.01-0.034)
[2022-01-25 12:10] LABS: HEMOLYSIS 51 (0-50)
[2022-01-25 12:13] LABS: Erythrocyte Sedimentation Rate 11 MM/HR (0-15)
--- NOTE | 2022-01-25 12:21 | PC.NURSE ---
Pt at door, stating he is going to leave because he hasn't been updated on the plan of care. Dr Laboy sent to talk to pt. Primary RN updated. Pt has PIV that needs to be removed prior to leaving AMA.
[2022-01-25 12:25] VITALS: BP 156/103; PULSE 99; RESP 18; O2SAT 98
[2022-01-25 13:24] LABS: CKMB % Relative Index 2.1 % (1.5-5.0); Creatine Kinase MB 5.81 ng/mL (<2.37)
== END 2022-01-25 12:25 | disposition home or self-care (01) ==
PROVIDERS: Emergency Provider Emergency Medicine
DX: U07.1 COVID-19 (principal); L03.116 Cellulitis of left lower limb; R06.02 Shortness of breath; R00.0 Tachycardia, unspecified
CPT/HCPCS: 36415; 71045; 73590; 80053; 82550; 82553; 83605; 83690; 83880; 84484; 85025; 85651; 86140; 87635; 93005; 99283; 99284; C9803

== ENCOUNTER 2022-03-30 18:16 | Emergency (ER) | payer OTHER, MEDICAID, SELFPAY ==
[2022-03-30] VITALS (12 sets, daily range): BP systolic 107–157; BP diastolic 59–98; PULSE 95–131; RESP 16–31; TEMP 36.2; O2SAT 93–99; BMI 37.8
--- NOTE | 2022-03-30 18:37 | DI.RAD.S_ITS ---
PROCEDURE: XR CHEST 1V INDICATIONS: chest pain TECHNIQUE: One view of the chest was acquired. COMPARISON: [facility], CR, XR CHEST 1V, 01/25/2022, 10:13. FINDINGS: Surgical changes and devices: None. Lungs and pleura: Lungs are clear. No pleural effusions or pneumothorax. Mediastinum: Mediastinal contours appear normal. Heart size is normal. Bones and chest wall: No suspicious bony lesions. Overlying soft tissues appear unremarkable. IMPRESSION: No acute cardiopulmonary pathology. Dictated by: Familia Figueroa M.D. on 03/30/2022 at 19:20 Approved by: Familia Figueroa M.D. on 03/30/2022 at 19:22
[2022-03-30 19:03] LABS: Add Manual Diff / Slide Review NO; Basophils Absolute Auto 100 /uL (0-100); Basophils Percent Auto 1.1 % (0-2); Eosinophils Absolute Auto 400 /uL (0-450); Eosinophils Percent Auto 6.2 % (2-4); Hematocrit 37.3 % (41-53); Hemoglobin 12.7 g/dL (13.5-17.5); Lymphocytes Absolute Auto 1600 /uL (1100-4500); Lymphocytes Percent Auto 22.3 % (25-40); Mean Corpuscular HGB Conc 34.1 % (30-36); Mean Corpuscular Hemoglobin 28.7 PG (26-34); Mean Corpuscular Volume 84.2 fL (80-100); Monocytes Absolute Auto 500 /uL (0-900); Monocytes Percent Auto 7.2 % (3-14); Neutrophils Absolute Auto 4400 /uL (1500-7000); Neutrophils Percent Auto 63.2 % (50-75); Platelet Count 252 X10^3/uL (150-400); Red Blood Cell Count 4.43 X10^6/uL (4.5-5.9); Red Cell Distribution Width 13.5 % (11.6-14.8)
[2022-03-30 19:10] LABS: INR 0.9 (0.9-1.3); Prothrombin Time 10.4 SECONDS (10.1-12.7)
[2022-03-30 19:13] LABS: PTT Partial Thromboplastin Tim 33 SECONDS (26-36)
[2022-03-30 19:14] LABS: Alanine Aminotransferase 35 IU/L (<50); Albumin 4.4 g/dL (3.5-5.0); Albumin Globulin Ratio 1.4 (1.0-2.8); Alkaline Phosphatase 81 U/L (38-126); Aspartate Aminotransferase 32 IU/L (17-59); BUN Creatinine Ratio 26.3 (6-22); Bilirubin Total 0.8 mg/dL (0.2-1.3); Blood Urea Nitrogen 21 mg/dL (9-20); Carbon Dioxide 28 mmol/L (22-32); Chloride 103 mmol/L (98-107); Creatine Kinase 103 U/L (55-170); Estimated Glomerular Filt Rate > 60 mL/min (>60); Globulin 3.1 g/dL (1.7-4.1); Glucose 116 mg/dL (70-100); HEMOLYSIS < 15 (0-50); Lipase 65 U/L (23-300); Magnesium 2.1 mg/dL (1.6-2.3); Potassium 4.2 mmol/L (3.4-5.1); Sodium 141 mmol/L (137-145); Total Protein 7.5 g/dL (6.3-8.2)
[2022-03-30 19:26] LABS: Troponin I < 0.012 ng/mL (0.01-0.034)
[2022-03-30 19:29] LABS: CKMB % Relative Index 2.9 % (1.5-5.0); Creatine Kinase MB 2.99 ng/mL (<2.37)
--- NOTE | 2022-03-30 19:34 | ED.CHESTPAIN ---
HPI - Chest Pain General Chief Complaint: Chest Pain Stated Complaint: Sharp chest pain, SOB, worsening Time Seen by Provider: 03/30/22 18:50 Source: patient Mode of arrival: Family Vehicle Limitations: no limitations History of Present Illness HPI narrative: Patient is a 46-year-old male who is here for evaluation of shortness of breath, retaining fluid, weight gain over the past couple weeks, left-sided chest wall discomfort. He is had all of the symptoms in the past. Has recently been seen by his primary doctor. Has a prescription for Lasix already had a pharmacy that he is yet to picker/puller. He is also recently at an outside facility for similar symptoms. He left against medical advice according to the notes that I received. He recently had an echocardiogram that was not completed because the patient was having ?erratic? heart rate which is what sent him to the emergency department. He was given couple days of Lasix and took them but has been off of them now in notices that his abdomen is swelling and also his lower extremities swelling and he is becoming somewhat short of breath. No fevers. He also has left-sided chest wall discomfort. Sometimes the pain is on the right side as well. It is reproducible with palpation. Does seem to come and go. He is also has chronic back pain. He is being evaluated by his primary doctor for this. Related Data Home Medications Medication Instructions Recorded Confirmed methadone 40 mg soluble tablet 35 mg PO DAILY 05/30/20 05/30/20 Previous Rx's Medication Instructions Recorded ketorolac 10 mg tablet 10 mg PO Q6H PRN pain #14 tabs 06/27/20 doxycycline hyclate 100 mg tablet 100 mg PO BID #20 tabs 04/13/21 fluticasone propionate 50 1 spray intranasal Q12H PRN nasal 07/03/21 mcg/actuation nasal congestion #16 grams spray,suspension (Flonase Allergy Relief) amoxicillin 875 mg-potassium 1 tab PO Q12H #20 tabs 08/19/21 clavulanate 125 mg tablet doxycycline hyclate 100 mg tablet 100 mg PO BID #20 tabs 01/13/22 Allergies Allergy/AdvReac Type Severity Reaction Status Date / Time Sulfa (Sulfonamide Allergy Unknown Verified 01/23/22 17:29 Antibiotics) Review of Systems Constitutional Constitutional: Reports system reviewed and no additional complaints, except as documented Cardiovascular Cardiovascular: Reports system reviewed and no additional complaints, except as documented Respiratory Respiratory: Reports system reviewed and no additional complaints, except as documented Gastrointestinal Gastrointestinal: Reports system reviewed and no additional complaints, except as documented Musculoskeletal Musculoskeletal: Reports system reviewed and no additional complaints, except as documented Integumentary/Breasts Skin/Breast: Reports system reviewed and no additional complaints, except as documented Neurologic Neurologic: Reports system reviewed and no additional complaints, except as documented Hematologic/Lymphatic On Anticoagulants: No Patient History Medical History Anxiety (Unknown) Degenerative disc disease at L5-S1 level (Unknown) GERD (gastroesophageal reflux disease) (Unknown) 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) Family History Family/Other Loud snoring Obesity Hypertension Heart disease Depression Anxiety Alcohol abuse Father Loud snoring Alcohol abuse Substance abuse Mother Loud snoring Sleep apnea Insomnia Obesity Hypertension Heart disease Depression Anxiety Alcohol abuse Substance abuse Family/Other Loud snoring Insomnia Anxiety Depression Alcohol abuse Substance abuse Family/Other Depression Anxiety Alcohol abuse Social History Smoking Status: Former smoker Smoking Status: Former smoker tobacco type: cigarettes alcohol intake frequency: holidays/special occasions only Substance Use Type: former substance user, heroin, opiates, IV drugs and methamphetamine Exam Initial Vital Signs Initial Vital Signs: Vital Signs Pulse Rate 104 H 03/30/22 18:32 Respiratory Rate 29 H 03/30/22 18:32 Pulse Oximetry 96 03/30/22 18:32 Const General: cooperative, comfortable and No ill appearing HENMT Head: normal to inspection and normocephalic Chest Chest: No crepitus and No tenderness Resp Effort & Inspection: normal respiratory effort Auscultation: clear to auscultation bilaterally Cardio Rate: regular rate Rhythm: regular rhythm GI Inspection: distended Skin General: no rashes or lesions noted Neuro General: patient alert, patient awake and moves all extremities Gait: normal gait Extrem General: normal to inspection Scores HEART Score Heart Score history: Slightly Suspicious Heart Score EKG: Normal Heart Score Age: < 45 years old Heart Score risk factors: No known risk factors Heart Score troponin: < or = to normal limit Heart Score Total: 0 Course Orders Ordered: ED Orders 03/30/22 18:37 XR chest 1V Stat COVID19 -Nasal RAPID/Pre-Proc Stat EKG-12 Lead Stat 03/30/22 18:50 BNP [NT-proBNP (BNP-Adult 18+)] Stat Complete Blood Count AUTO DIFF Stat Comprehensive Metabolic Panel Stat Lipase Stat Magnesium Stat Partial Thromboplastin Time Stat Prothrombin Time INR Stat Troponin & CK Cardiac Panel Stat 03/30/22 21:05 Troponin & CK Cardiac Panel Stat Discontinued Medications Aspirin (Aspirin 81 Mg Chew Tab) 324 mg PO NOW ONE Stop: 03/30/22 18:38 Last Admin: 03/30/22 19:16 Dose: Not Given Documented By: AT Furosemide 60 mg/ Sodium (Chloride) 56 mls @ 112 mls/hr IV NOW ONE Stop: 03/30/22 19:36 Last Infusion: 03/30/22 20:19 Dose: 0 mls/hr Documented By: Admin: 03/30/22 19:47 Dose: 112 mls/hr Documented By: AT Vital Signs Vital signs: Vital Signs - 8 hr 03/30/22 18:38 03/30/22 18:32 03/30/22 19:00 Temperature 97.1 F L Pulse Rate 107 H 104 H 101 H Respiratory Rate 22 29 H 28 H Blood Pressure 134/84 Pulse Oximetry 96 96 95 Oxygen Delivery Method Room Air 03/30/22 19:01 03/30/22 19:01 03/30/22 19:30 Temperature Pulse Rate 105 H 100 H Respiratory Rate 31 H 19 Blood Pressure 139/98 H Pulse Oximetry 95 96 Oxygen Delivery Method Room Air Room Air 03/30/22 19:52 03/30/22 19:52 03/30/22 20:00 Temperature Pulse Rate 95 H 95 H Respiratory Rate 17 21 Blood Pressure 107/59 L Pulse Oximetry 93 94 Oxygen Delivery Method Room Air 03/30/22 20:35 03/30/22 20:38 03/30/22 20:38 Temperature Pulse Rate 131 H 103 H Respiratory Rate 22 Blood Pressure 157/89 H Pulse Oximetry 95 Oxygen Delivery Method Room Air 03/30/22 21:03 03/30/22 21:30 Temperature Pulse Rate 105 H 107 H Respiratory Rate 21 23 Blood Pressure Pulse Oximetry 99 95 Oxygen Delivery Method Room Air Room Air MDM - Chest Pain Medical Records Data Attestation: I reviewed the patient's medical records. Lab Data Attestation: I reviewed the patient's lab results. 03/30/22 18:50 02/12/23 18:50 Labs: Lab Results 03/30/22 03/30/22 03/30/22 Range/Units 18:50 18:50 18:50 WBC 7.0 (4.5-11.0) X10^3/uL RBC 4.43 L (4.5-5.9) X10^6/uL Hgb 12.7 L (13.5-17.5) g/dL Hct 37.3 L (41-53) % MCV 84.2 (80-100) fL MCH 28.7 (26-34) PG MCHC 34.1 (30-36) % RDW 13.5 (11.6-14.8) % Plt Count 252 (150-400) X10^3/uL Neut % (Auto) 63.2 (50-75) % Lymph % (Auto) 22.3 L (25-40) % [place] % (Auto) 7.2 (3-14) % Eos % (Auto) 6.2 H (2-4) % Baso % (Auto) 1.1 (0-2) % Neut # (Auto) 4400 (5628-1381) /uL Lymph # (Auto) 1600 (0271-8828) /uL [place] # (Auto) 500 (0-900) /uL Eos # (Auto) 400 (0-450) /uL Baso # (Auto) 100 (0-100) /uL PT 10.4 (10.1-12.7) SECONDS INR 0.9 (0.9-1.3) APTT 33 (26-36) SECONDS Sodium 141 (137-145) mmol/L Potassium 4.2 (3.4-5.1) mmol/L Chloride 103 (98-107) mmol/L Carbon Dioxide 28 (22-32) mmol/L BUN 21 H (9-20) mg/dL Creatinine 0.80 (0.66-1.25) mg/dL Estimated GFR > 60 (>60) mL/min BUN/Creatinine Ratio 26.3 H (6-22) Glucose 116 H (70-100) mg/dL Calcium 9.0 (8.4-10.2) mg/dL Magnesium 2.1 (1.6-2.3) mg/dL Total Bilirubin 0.8 (0.2-1.3) mg/dL AST 32 (17-59) IU/L ALT 35 (<50) IU/L Alkaline Phosphatase 81 (38-126) U/L Total Creatine Kinase 103 (55-170) U/L CK-MB (CK-2) 2.99 H (<2.37) ng/mL CK-MB (CK-2) Rel Index 2.9 (1.5-5.0) % Troponin I < 0.012 (0.01-0.034) ng/mL NT-Pro-B Natriuret Pep (<125) pg/mL Total Protein 7.5 (6.3-8.2) g/dL Albumin 4.4 (3.5-5.0) g/dL Globulin 3.1 (1.7-4.1) g/dL Albumin/Globulin Ratio 1.4 (1.0-2.8) Lipase 65 (23-300) U/L 03/30/22 03/30/22 Range/Units 18:50 21:05 WBC (4.5-11.0) X10^3/uL RBC (4.5-5.9) X10^6/uL Hgb (13.5-17.5) g/dL Hct (41-53) % MCV (80-100) fL MCH (26-34) PG MCHC (30-36) % RDW (11.6-14.8) % Plt Count (150-400) X10^3/uL Neut % (Auto) (50-75) % Lymph % (Auto) (25-40) % [place] % (Auto) (3-14) % Eos % (Auto) (2-4) % Baso % (Auto) (0-2) % Neut # (Auto) (5105-4534) /uL Lymph # (Auto) (7579-7088) /uL [place] # (Auto) (0-900) /uL Eos # (Auto) (0-450) /uL Baso # (Auto) (0-100) /uL PT (10.1-12.7) SECONDS INR (0.9-1.3) APTT (26-36) SECONDS Sodium (137-145) mmol/L Potassium (3.4-5.1) mmol/L Chloride (98-107) mmol/L Carbon Dioxide (22-32) mmol/L BUN (9-20) mg/dL Creatinine (0.66-1.25) mg/dL Estimated GFR (>60) mL/min BUN/Creatinine Ratio (6-22) Glucose (70-100) mg/dL Calcium (8.4-10.2) mg/dL Magnesium (1.6-2.3) mg/dL Total Bilirubin (0.2-1.3) mg/dL AST (17-59) IU/L ALT (<50) IU/L Alkaline Phosphatase (38-126) U/L Total Creatine Kinase 98 (55-170) U/L CK-MB (CK-2) TNP (<2.37) ng/mL CK-MB (CK-2) Rel Index TNP (1.5-5.0) % Troponin I < 0.012 (0.01-0.034) ng/mL NT-Pro-B Natriuret Pep 27 (<125) pg/mL Total Protein (6.3-8.2) g/dL Albumin (3.5-5.0) g/dL Globulin (1.7-4.1) g/dL Albumin/Globulin Ratio (1.0-2.8) Lipase (23-300) U/L Imaging Data Chest x-ray: Radiologist's Impression: [address] [address] XRay Report Signed Patient: Paulino Keyes MR#: [id number] : 1975 Acct:[id number] Age/Sex: 46 / M Date of Service: 03/30/22 Loc: ED Accession Number: [id number] ?? Procedure: XR chest 1V Ordering Provider: Armando Laboy D.O. PROCEDURE:? XR CHEST 1V ? INDICATIONS:? chest pain ? TECHNIQUE:? One view of the chest was acquired.? ? COMPARISON:? [facility], [place], XR CHEST 1V, 01/25/2022, 10:13. ? FINDINGS:? ? Surgical changes and devices:? None.? ? Lungs and pleura:? Lungs are clear.? No pleural effusions or pneumothorax.? ? Mediastinum:? Mediastinal contours appear normal.? Heart size is normal.? ? Bones and chest wall:? No suspicious bony lesions.? Overlying soft tissues appear unremarkable.? ? IMPRESSION:? No acute cardiopulmonary pathology. ? ? Dictated by: Familia Figueroa M.D. on 03/30/2022 at 19:20 ? ? Approved by: Familia Figueroa M.D. on 03/30/2022 at 19:22?? ECG Data Attestation: I personally reviewed and interpreted this ECG as follows: Interpretation: Sinus rhythm Ventricular rate 99 Normal axis Normal QRS Normal QTC No ST T wave changes MDM Narrative Medical decision making narrative: Low risk heart score, 2- troponins, unremarkable EKG. Chest x-ray is unremarkable. No indication for pneumonia nor pneumothorax. BNP is negative. There is still some concern about heart failure given his drug abuse history and his presentation however no indication for admission to the hospital today. I discussed this with him. He has a prescription for Lasix that he was advised that he go and picker/puller start taking it as directed and he needed to talk with his primary doctor about further outpatient workup of this. Patient does have a history of hepatitis-C. His primary doctor did test him for this but he does not know the results of it. His LFTs are unremarkable. His lipase is unremarkable. Although it was not reproducible here in the emergency department the patient states that the left-sided chest pain that he has is sometimes reproducible with palpation which makes me have little concern for ACS. Since the discomfort is reproducible I also have little concern for pulmonary embolism. No indication for further radiologic studies. No indication for antibiotics. No indication for surgical consultation. Will discharge patient home with reassurance. He was given return precautions. He expressed understanding and agreement. Discharge Plan Departure Patient Disposition: Home Clinical Impression: Edema, Atypical chest pain Instructions: DI for Atypical Chest Pain, DI for Peripheral Edema -- Bilateral Activity Restrictions/Additional Instructions: I do recommend that you picker/puller the Lasix/furosemide that was prescribed you by your primary doctor and start taking it as directed. Also recommend that you follow-up with your primary doctor. Return to the emergency department for new symptoms. Continue any other medications as directed as well. Prescriptions: No Action ketorolac 10 mg tablet 10 mg PO Q6H PRN (Reason: pain) Qty: 14 0RF fluticasone propionate [Flonase Allergy Relief] 50 mcg/actuation spray,suspension 1 spray intranasal Q12H PRN (Reason: nasal congestion) Qty: 16 0RF Rx Instructions: administer into each nostril amoxicillin-pot clavulanate 875-125 mg tablet 1 tab PO Q12H Qty: 20 0RF doxycycline hyclate 100 mg tablet 100 mg PO BID Qty: 20 0RF methadone 40 mg tablet,soluble 35 mg PO DAILY doxycycline hyclate 100 mg tablet 100 mg PO BID Qty: 20 0RF Stand Alone Forms: Patient Portal/API
[2022-03-30] MEDS: FUROSEMIDE 60 MG in SODIUM CHLORIDE 0.9% 50 ML 112 MG IV (19:47)
[2022-03-30 19:59] LABS: NT-proBNP (BNP-Adult 18+) 27 pg/mL (<125)
--- NOTE | 2022-03-30 20:40 | PC.NURSE ---
At approximately 2024 pt requested to use the bathroom, unhooked pt from telemetry and watched pt ambulate towards bathroom. After approximately 10 minutes knocked on bathroom to no answer, opened door and pt not present. Pt belongings including laptop remained in room. Searched department without success. Shortly after pt walked in front door from parking lot, states he had to give money to his son for food. Dr. Laboy aware. Educated pt about not leaving department during visit, results still pending, pt still had IV in and telemetry wires on chest.
[2022-03-30 21:21] LABS: Creatine Kinase 98 U/L (55-170)
[2022-03-30 21:34] LABS: Troponin I < 0.012 ng/mL (0.01-0.034)
== END 2022-03-30 21:58 | disposition home or self-care (01) ==
PROVIDERS: Emergency Provider Emergency Medicine
DX: R07.89 Other chest pain (principal); R60.0 Localized edema; R06.02 Shortness of breath
CPT/HCPCS: 36415; 71045; 80053; 82550; 82553; 83690; 83735; 83880; 84484; 85025; 85610; 85730; 93005; 93010; 96365; 99284; J1940

== ENCOUNTER 2022-05-18 01:02 | Emergency (ER) | payer OTHER, MEDICAID, SELFPAY ==
--- NOTE | 2022-05-18 01:05 | ED.GENADULT ---
HPI - General Adult General Chief complaint: Skin/Abscess/Foreign Body Stated complaint: infection all over my body Time Seen by Provider: 05/18/22 01:05 History of Present Illness HPI narrative: 46-year-old male smoker with history of IV drug abuse and prior skin infections presents with a chief complaint of a painful abscess which he was able to drain somewhat on his right synagogue, pain in his right ear and a questionable ingrown toenail of his right great toe. He states his symptoms have been flaring up over the past few days and he had been trying to drain purulent material from the superficial abscess on his right synagogue for the past few days and got some out but nothing significant. He denies systemic complaints such as fever, chills nor nausea or vomiting. Related Data Home Medications Medication Instructions Recorded Confirmed methadone 40 mg soluble tablet 35 mg PO DAILY 05/30/20 05/30/20 Previous Rx's Medication Instructions Recorded ketorolac 10 mg tablet 10 mg PO Q6H PRN pain #14 tabs 06/27/20 doxycycline hyclate 100 mg tablet 100 mg PO BID #20 tabs 04/13/21 fluticasone propionate 50 1 spray intranasal Q12H PRN nasal 07/03/21 mcg/actuation nasal congestion #16 grams spray,suspension (Flonase Allergy Relief) amoxicillin 875 mg-potassium 1 tab PO Q12H #20 tabs 08/19/21 clavulanate 125 mg tablet doxycycline hyclate 100 mg tablet 100 mg PO BID #20 tabs 01/13/22 doxycycline hyclate 100 mg tablet 100 mg PO BID #20 tabs 05/18/22 Allergies Allergy/AdvReac Type Severity Reaction Status Date / Time Sulfa (Sulfonamide Allergy Unknown Verified 01/23/22 17:29 Antibiotics) Review of Systems Review of Systems Narrative: GENERAL: Denies chills, fatigue, malaise, fever, sweats. HEENT: Denies sinus pain, ear pain, sore throat, difficulty swallowing, dizziness. RESPIRATORY: Denies dyspnea, cough, wheezing, hemoptysis, sputum. CARDIOVASCULAR: Denies chest pain, palpitations, orthopnea, edema, GASTROINTESTINAL: Denies nausea, vomiting, abdominal pain, diarrhea, constipation, melena. : Denies dysuria, frequency, incontinence, hematuria, urinary retention. MUSCULOSKELETAL: denies weakness, joint pain, or bony pain SKIN: See HPI NEUROLOGIC: Denies weakness, headache, numbness, change in speech, confusion, seizures, incoordination. PSYCHIATRIC: No concerning psychosocial issues. 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) Family History Family/Other Loud snoring Obesity Hypertension Heart disease Depression Anxiety Alcohol abuse Father Loud snoring Alcohol abuse Substance abuse Mother Loud snoring Sleep apnea Insomnia Obesity Hypertension Heart disease Depression Anxiety Alcohol abuse Substance abuse Family/Other Loud snoring Insomnia Anxiety Depression Alcohol abuse Substance abuse Family/Other Depression Anxiety Alcohol abuse Social History Smoking Status: Former smoker Smoking Status: Former smoker tobacco type: cigarettes alcohol intake frequency: holidays/special occasions only Substance Use Type: former substance user, heroin, opiates, IV drugs and methamphetamine Exam Narrative Exam Narrative: GENERAL: [46] year old patient appears stated age. Well-developed patient, in mild distress. HEAD: Atraumatic. Normocephalic. EYES: Pupils equal round and reactive. Extraocular motions intact. No scleral icterus. No injection or drainage. ENT: Nose without bleeding, purulent drainage. Throat without erythema, tonsillar hypertrophy or exudate. Airway patent. NECK: Trachea midline. Non tender CARDIOVASCULAR: Regular rate and rhythm without murmurs, gallops, or rubs. RESPIRATORY: Clear to auscultation. Breath sounds equal bilaterally. No wheezes, rales, or rhonchi. GASTROINTESTINAL: Abdomen soft, non-tender, nondistended. EXTREMITIES: Right great toe has very mild probable ingrown toenail, no drainage, minimal surrounding erythema No edema or joint tenderness. BACK: Nontender without deformity or crepitance. No flank tenderness. NEURO: AOx3. SKIN: 2 cm superficial cutaneous abscess on right temporal with minimal fluctuance, it is scabbed over and he clearly has been draining it. Very minimal surrounding erythema. His right tragus has a very small amount of purulence with erythema, no drainage, fluctuance or induration. External auditory canal is patent. Initial Vital Signs Initial Vital Signs: Vital Signs Temperature 98.4 F 05/18/22 01:09 Pulse Rate 98 H 05/18/22 01:09 Respiratory Rate 18 05/18/22 01:09 Blood Pressure 142/77 H 05/18/22 01:09 Pulse Oximetry 98 05/18/22 01:09 Oxygen Delivery Method Room Air 05/18/22 01:09 Procedures Abscess I/D I&D #1: Site: face Side (if applicable): right Local Anesthetic: lidocaine 1% Amount of anesthesia used (mL): 2 Technique: incised with #11 blade Amount of fluid expressed (mL): 3 Irrigation: No Packing used?: none I&D #2: Site: face (right ear tragus with small pustule and erythema) Local Anesthetic: lidocaine 1% Amount of anesthesia used (mL): 2 Technique: needle aspiration Amount of fluid expressed (mL): 0.5 Irrigation: No Packing used?: none Course Orders Ordered: Discontinued Medications Doxycycline Hyclate (Doxycycline Hyclate 100 Mg Tablet) 100 mg PO NOW ONE Stop: 05/18/22 01:30 Last Admin: 05/18/22 01:55 Dose: 100 mg Documented By: [place] Vital Signs Vital signs: Vital Signs - 8 hr 05/18/22 01:09 Temperature 98.4 F Pulse Rate 98 H Respiratory Rate 18 Blood Pressure 142/77 H Pulse Oximetry 98 Oxygen Delivery Method Room Air Medical Decision Making [facility] Narrative Medical decision making narrative: [46] year old patient presents with painful skin lesions consistent with superficial cutaneous abscess Multiple etiologies for patient's symptoms considered including, but not limited to: [Abscess, cellulitis, ingrown toenail versus other] Prior Charts reviewed in our EMR Primary Historian: patient Patient's symptoms improved over duration of stay with above-stated therapies. Findings and discharge diagnosis discussed with patient/family followed by verbalization of understanding Return precautions discussed with patient/family whom verbalize understanding of diagnosis and plan Discharge Plan Departure Patient Disposition: Home Clinical Impression: Abscess, Ingrowing toenail of right foot Instructions: DI for Skin Abscess Activity Restrictions/Additional Instructions: *You have been diagnosed with [multiple small cutaneous abscesses with minimal surrounding cellulitis and right great toe ingrown toenail] *What to do: *Please continue to take your regular medications as directed. [x ] New medication prescriptions sent to your pharmacy: [ [facility]] [ ] New medication written as a paper prescription [ ] No new medications given *Please follow up with your primary care provider in 2-3 days, call for an appointment. Let them know you were seen in the Emergency Department and that we ask that you be seen in follow up. We will electronically transmit a record of today's note if your PCP is in our system * as we discussed please soak your right great toe in warm water with Epsom salts twice daily for the next 7 days. I have included contact information for local podiatry for assistance with this as we move forward. *If you do not have a primary care provider please contact the [facility] Resource line at [phone]. They will ask some questions about your medical history and help get you set up with a doctor in the community. *Return to Emergency Department if you should have any new, worsening or concerning symptoms, such as [fever greater than 101 F, shaking chills, worsening pain, persistent vomiting or other bothersome symptoms] Prescriptions: New doxycycline hyclate 100 mg tablet 100 mg PO BID Qty: 20 0RF No Action ketorolac 10 mg tablet 10 mg PO Q6H PRN (Reason: pain) Qty: 14 0RF fluticasone propionate [Flonase Allergy Relief] 50 mcg/actuation spray,suspension 1 spray intranasal Q12H PRN (Reason: nasal congestion) Qty: 16 0RF Rx Instructions: administer into each nostril amoxicillin-pot clavulanate 875-125 mg tablet 1 tab PO Q12H Qty: 20 0RF doxycycline hyclate 100 mg tablet 100 mg PO BID Qty: 20 0RF methadone 40 mg tablet,soluble 35 mg PO DAILY doxycycline hyclate 100 mg tablet 100 mg PO BID Qty: 20 0RF Stand Alone Forms: Patient Portal/API
[2022-05-18 01:09] VITALS: BP 142/77; PULSE 98; RESP 18; TEMP 36.9; O2SAT 98; BMI 32.5
--- NOTE | 2022-05-18 01:24 | PC.NURSE ---
pt also c/o ingrown toenail, pt states he has an infection all over. Dr Watson in triage room to evaluate pt
[2022-05-18] MEDS: DOXYCYCLINE HYCLATE 100 MG TABLET PO (01:55)
== END 2022-05-18 01:57 | disposition home or self-care (01) ==
PROVIDERS: Emergency Provider Emergency Medicine
DX: L02.01 Cutaneous abscess of face (principal); L60.0 Ingrowing nail
CPT/HCPCS: 99283

== ENCOUNTER 2022-05-18 19:31 | Emergency (ER) | payer OTHER, MEDICAID, SELFPAY ==
[2022-05-18] VITALS (8 sets, daily range): BP systolic 108–148; BP diastolic 63–81; PULSE 87–121; RESP 16–25; TEMP 37.4; O2SAT 96–100; BMI 32.5
[2022-05-18 20:19] LABS: Add Manual Diff / Slide Review NO; Basophils Absolute Auto 100 /uL (0-100); Basophils Percent Auto 0.8 % (0-2); Eosinophils Absolute Auto 500 /uL (0-450); Eosinophils Percent Auto 4.7 % (2-4); Hematocrit 37.8 % (41-53); Hemoglobin 12.8 g/dL (13.5-17.5); Lymphocytes Absolute Auto 1500 /uL (1100-4500); Lymphocytes Percent Auto 15.7 % (25-40); Mean Corpuscular HGB Conc 33.8 % (30-36); Mean Corpuscular Volume 82.8 fL (80-100); Monocytes Absolute Auto 600 /uL (0-900); Monocytes Percent Auto 5.6 % (3-14); Neutrophils Absolute Auto 7200 /uL (1500-7000); Neutrophils Percent Auto 73.2 % (50-75); Platelet Count 325 X10^3/uL (150-400); Red Blood Cell Count 4.57 X10^6/uL (4.5-5.9); Red Cell Distribution Width 13.7 % (11.6-14.8); White Blood Cell Count 9.8 X10^3/uL (4.5-11.0)
[2022-05-18 20:30] LABS: Lactate (Lactic Acid) 1.2 mmol/L (0.7-2.1)
[2022-05-18 20:31] LABS: Alanine Aminotransferase 25 IU/L (<50); Albumin 4.3 g/dL (3.5-5.0); Albumin Globulin Ratio 1.1 (1.0-2.8); Alkaline Phosphatase 89 U/L (38-126); Aspartate Aminotransferase 29 IU/L (17-59); BUN Creatinine Ratio 24.6 (6-22); Bilirubin Total 0.7 mg/dL (0.2-1.3); Blood Urea Nitrogen 17 mg/dL (9-20); Calcium 9.1 mg/dL (8.4-10.2); Carbon Dioxide 30 mmol/L (22-32); Chloride 100 mmol/L (98-107); Creatine Kinase 160 U/L (55-170); Estimated Glomerular Filt Rate > 60 mL/min (>60); Globulin 3.9 g/dL (1.7-4.1); Glucose 99 mg/dL (70-100); HEMOLYSIS < 15 (0-50); Potassium 3.7 mmol/L (3.4-5.1); Sodium 138 mmol/L (137-145); Total Protein 8.2 g/dL (6.3-8.2)
[2022-05-18] MEDS: VANCOMYCIN 1,500 MG/300 ML PIGGYBACK 200 MG IV (20:34)
[2022-05-18] MEDS: SODIUM CHLORIDE 0.9% 1,776 ML 592 ML IV (20:37)
[2022-05-18 20:43] LABS: Troponin I < 0.012 ng/mL (0.01-0.034)
[2022-05-18 20:46] LABS: CKMB % Relative Index 4.3 % (1.5-5.0); Creatine Kinase MB 6.83 ng/mL (<2.37)
[2022-05-18 20:48] LABS: Procalcitonin 0.05 ng/mL (<0.5)
--- NOTE | 2022-05-18 21:41 | DI.CT.S_ITS ---
PROCEDURE: CT FACIAL BONES W CON INDICATIONS: R side facial swelling, redness, pain, rapidly worsening TECHNIQUE: After the administration of intravenous contrast, 2.5 mm axial sections acquired from the mid-neck to the frontal sinuses, with coronal and sagittal reformats. For radiation dose reduction, the following was used: automated exposure control, adjustment of mA and/or kV according to patient size. COMPARISON: None. FINDINGS: Image quality: There is metallic streak artifact secondary to patient's dental hardware limiting evaluation. Soft tissues: There is right facial soft tissue swelling with subcutaneous edema and skin thickening most prominent anterior to the maxilla and in the right periorbital region. No discrete loculated fluid collections to suggest an abscess. The globes are intact. No intraconal fluid collections in the orbits. There are mildly prominent subcentimeter right cervical and parotid lymph nodes which are likely reactive. Vascular: Visualized vascular structures appear patent throughout. Bony vascular foramina and canals appear normal. Bones: Facial bones appear intact, without fractures, erosions, or destruction. Visualized portions of the skull base and auditory canals also appear normal. Sinuses: Paranasal sinuses are aerated without fluid levels, mucosal thickening, or mucoceles. Mastoid air cells are aerated. IMPRESSION: 1. Right facial soft tissue swelling and edema likely reflecting cellulitis. No discrete loculated abscess collection identified. 2. No intraorbital fluid collections. Dictated by: Jacob Rivero M.D. on 05/18/2022 at 22:42 Approved by: Jacob Rivero M.D. on 05/18/2022 at 22:49
--- NOTE | 2022-05-18 23:25 | PC.NURSE ---
patient wants to eat. provider okayed. patient given food. provider aware.
--- NOTE | 2022-05-18 23:48 | ED.SKABFB ---
HPI - Skin/Abscess/Foreign Bdy General Chief complaint: Skin/Abscess/Foreign Body Stated complaint: rt side of head swollen Time Seen by Provider: 05/18/22 19:38 Source: patient Mode of arrival: Ambulatory Limitations: no limitations History of Present Illness HPI narrative: 46-year-old male smoker with history of IV drug abuse and prior skin infections presents with a chief complaint of a painful abscess on his right forehead with increased swelling compared to last night. He was seen and evaluated last night by myself under similar circumstances. We did an incision and drainage with some purulent drainage from this abscess. Patient was given his 1st dose of doxycycline and got his prescription filled. He took 2 additional doses. There is increased swelling which extends to some of his forehead and a bit of his upper lid but this is not warm or red, just swollen. There is some increased drainage coming from the abscess on his oriental orthodox. He denies fever or chills nor nausea or vomiting. He denies any chest pain or trouble breathing. He denies any diarrhea. Related Data Home Medications Medication Instructions Recorded Confirmed methadone 40 mg soluble tablet 35 mg PO DAILY 05/30/20 05/30/20 Previous Rx's Medication Instructions Recorded ketorolac 10 mg tablet 10 mg PO Q6H PRN pain #14 tabs 06/27/20 doxycycline hyclate 100 mg tablet 100 mg PO BID #20 tabs 04/13/21 fluticasone propionate 50 1 spray intranasal Q12H PRN nasal 07/03/21 mcg/actuation nasal congestion #16 grams spray,suspension (Flonase Allergy Relief) amoxicillin 875 mg-potassium 1 tab PO Q12H #20 tabs 08/19/21 clavulanate 125 mg tablet doxycycline hyclate 100 mg tablet 100 mg PO BID #20 tabs 01/13/22 doxycycline hyclate 100 mg tablet 100 mg PO BID #20 tabs 05/18/22 ofloxacin 0.3 % ear drops 10 drp EAR-RIGHT DAILY 7 days #10 05/19/22 mL Allergies Allergy/AdvReac Type Severity Reaction Status Date / Time Sulfa (Sulfonamide Allergy Unknown Verified 05/18/22 19:42 Antibiotics) Review of Systems Review of Systems Narrative: GENERAL: Denies chills, fatigue, malaise, fever, sweats. HEENT: See HPI RESPIRATORY: Denies dyspnea, cough, wheezing, hemoptysis, sputum. CARDIOVASCULAR: Denies chest pain, palpitations, orthopnea, edema, GASTROINTESTINAL: Denies nausea, vomiting, abdominal pain, diarrhea, constipation, melena. : Denies dysuria, frequency, incontinence, hematuria, urinary retention. MUSCULOSKELETAL: denies weakness, joint pain, or bony pain SKIN: See HPI NEUROLOGIC: Denies weakness, headache, numbness, change in speech, confusion, seizures, incoordination. PSYCHIATRIC: No concerning psychosocial issues. 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) Family History Family/Other Loud snoring Obesity Hypertension Heart disease Depression Anxiety Alcohol abuse Father Loud snoring Alcohol abuse Substance abuse Mother Loud snoring Sleep apnea Insomnia Obesity Hypertension Heart disease Depression Anxiety Alcohol abuse Substance abuse Family/Other Loud snoring Insomnia Anxiety Depression Alcohol abuse Substance abuse Family/Other Depression Anxiety Alcohol abuse Social History Smoking Status: Former smoker Smoking Status: Former smoker tobacco type: cigarettes alcohol intake frequency: holidays/special occasions only Substance Use Type: former substance user, heroin, opiates, IV drugs and methamphetamine Exam Narrative Exam Narrative: GENERAL: [46] year old patient appears stated age. Well-developed patient, in mild distress. HEAD: 2.5 cm abscess with minimal surrounding erythema overlying right temporal, more drainage today than yesterday, there is some increased swelling extending to the forehead in minimally involving his upper eyelid but this is not red, warm or tender. EYES: Pupils equal round and reactive. Extraocular motions intact. No scleral icterus. No injection or drainage. Minimal swelling of right upper eyelid, nontender or indurated, no vision change ENT: Nose without bleeding, purulent drainage. Throat without erythema, tonsillar hypertrophy or exudate. Airway patent. There is some increased swelling of his right tragus and external auditory canal without debris or drainage in the canal. NECK: Trachea midline. Non tender CARDIOVASCULAR: Regular rate and rhythm without murmurs, gallops, or rubs. RESPIRATORY: Clear to auscultation. Breath sounds equal bilaterally. No wheezes, rales, or rhonchi. GASTROINTESTINAL: Abdomen soft, non-tender, nondistended. EXTREMITIES: No edema or joint tenderness. BACK: Nontender without deformity or crepitance. No flank tenderness. NEURO: AOx3. SKIN: No rash or erythema of visible areas Initial Vital Signs Initial Vital Signs: Vital Signs Temperature 99.3 F 05/18/22 19:43 Pulse Rate 121 H 05/18/22 19:43 Respiratory Rate 20 05/18/22 19:43 Blood Pressure 148/74 H 05/18/22 19:43 Pulse Oximetry 97 05/18/22 19:43 Oxygen Delivery Method Room Air 05/18/22 19:43 Course Orders Ordered: ED Orders 05/18/22 19:54 EKG-12 Lead Stat 05/18/22 20:04 Complete Blood Count AUTO DIFF Stat Comprehensive Metabolic Panel Stat Lactate (Lactic Acid) Stat Procalcitonin Stat Troponin & CK Cardiac Panel Stat 05/18/22 20:24 Blood Culture Stat 05/18/22 21:41 CT facial bones w con Stat 05/19/22 00:20 Wound Culture and Gram Stain Stat Discontinued Medications Sodium Chloride (Normal Saline 0.9%) 1,776 mls @ 592 mls/hr 30 ml/kg infuse over 3 hr (1776 ml) IV NOW ONE Stop: 05/18/22 22:53 Last Admin: 05/18/22 20:37 Dose: 592 mls/hr Documented By: DOMINICK Vancomycin HCl/Dextrose (Vancomycin) 1,500 mg in 300 mls @ 200 mls/hr IV NOW ONE Stop: 05/18/22 21:23 Last Infusion: 05/18/22 22:35 Dose: 0 mls/hr Documented By: Admin: 05/18/22 20:34 Dose: 200 mls/hr Documented By: DOMINICK Vital Signs Vital signs: Vital Signs - 8 hr 05/18/22 19:43 05/18/22 20:05 05/18/22 20:30 Temperature 99.3 F Pulse Rate 121 H 111 H Respiratory Rate 20 25 H Blood Pressure 148/74 H 141/81 H Pulse Oximetry 97 100 Oxygen Delivery Method Room Air 05/18/22 20:30 05/18/22 21:00 05/18/22 21:00 Temperature Pulse Rate 107 H 101 H Respiratory Rate 23 18 Blood Pressure 132/70 Pulse Oximetry 99 99 Oxygen Delivery Method 05/18/22 21:30 05/18/22 21:55 05/18/22 22:00 Temperature Pulse Rate 97 H 92 H 89 Respiratory Rate 16 17 16 Blood Pressure 138/75 128/71 115/63 Pulse Oximetry 100 98 99 Oxygen Delivery Method Room Air Room Air Room Air 05/18/22 22:30 05/19/22 00:32 Temperature Pulse Rate 87 95 H Respiratory Rate 16 16 Blood Pressure 108/66 121/59 L Pulse Oximetry 96 98 Oxygen Delivery Method Room Air MDM - Skin/Abscess/Foreign Bdy Lab Data 05/18/22 20:04 05/18/22 20:04 Labs: Lab Results 05/18/22 05/18/22 05/18/22 Range/Units 20:04 20:04 20:04 WBC 9.8 (4.5-11.0) X10^3/uL RBC 4.57 (4.5-5.9) X10^6/uL Hgb 12.8 L (13.5-17.5) g/dL Hct 37.8 L (41-53) % MCV 82.8 (80-100) fL MCH 28.0 (26-34) PG MCHC 33.8 (30-36) % RDW 13.7 (11.6-14.8) % Plt Count 325 (150-400) X10^3/uL Neut % (Auto) 73.2 (50-75) % Lymph % (Auto) 15.7 L (25-40) % Charles % (Auto) 5.6 (3-14) % Eos % (Auto) 4.7 H (2-4) % Baso % (Auto) 0.8 (0-2) % Neut # (Auto) 7200 H (8789-4215) /uL Lymph # (Auto) 1500 (4737-4021) /uL Charles # (Auto) 600 (0-900) /uL Eos # (Auto) 500 H (0-450) /uL Baso # (Auto) 100 (0-100) /uL Sodium 138 (137-145) mmol/L Potassium 3.7 (3.4-5.1) mmol/L Chloride 100 (98-107) mmol/L Carbon Dioxide 30 (22-32) mmol/L BUN 17 (9-20) mg/dL Creatinine 0.69 (0.66-1.25) mg/dL Estimated GFR > 60 (>60) mL/min BUN/Creatinine Ratio 24.6 H (6-22) Glucose 99 (70-100) mg/dL Lactate 1.2 (0.7-2.1) mmol/L Calcium 9.1 (8.4-10.2) mg/dL Total Bilirubin 0.7 (0.2-1.3) mg/dL AST 29 (17-59) IU/L ALT 25 (<50) IU/L Alkaline Phosphatase 89 (38-126) U/L Total Creatine Kinase 160 (55-170) U/L CK-MB (CK-2) 6.83 H (<2.37) ng/mL CK-MB (CK-2) Rel Index 4.3 (1.5-5.0) % Troponin I < 0.012 (0.01-0.034) ng/mL Total Protein 8.2 (6.3-8.2) g/dL Albumin 4.3 (3.5-5.0) g/dL Globulin 3.9 (1.7-4.1) g/dL Albumin/Globulin Ratio 1.1 (1.0-2.8) Procalcitonin 0.05 (<0.5) ng/mL MDM Narrative Medical decision making narrative: [46] year old patient presents with known facial infection, with some increased swelling Multiple etiologies for patient's symptoms considered including, but not limited to: [Facial cellulitis versus abscess versus other] Prior Charts reviewed in our EMR Primary Historian: patient Labs reviewed and interpreted by myself: Very reassuring without any significant abnormalities that are unexpected Imaging reviewed: CT of the face with IV contrast demonstrates no significant fluid collection Patient's vitals improved with above-stated therapies, he is given vancomycin, I had a lengthy discussion with patient at the bedside, wound culture obtained. There are no indications for hospitalization. His vitals are greatly improved, labs reassuring, imaging without fluid collection. It is likely that the increased swelling is due to the procedure yesterday as opposed to rapidly worsening infectious process. Patient's symptoms improved over duration of stay with above-stated therapies. Findings and discharge diagnosis discussed with patient/family followed by verbalization of understanding Return precautions discussed with patient/family whom verbalize understanding of diagnosis and plan Discharge Plan Departure Patient Disposition: Home Clinical Impression: Cellulitis and abscess of face Instructions: DI for Skin Abscess Activity Restrictions/Additional Instructions: *You have been diagnosed with [facial abscess. As we discussed your labs today are very reassuring and the CT scan demonstrates no abscess] *What to do: *Please continue to take your regular medications as directed. *Please follow up with your primary care provider in 2-3 days, call for an appointment. Let them know you were seen in the Emergency Department and that we ask that you be seen in follow up. We will electronically transmit a record of today's note if your PCP is in our system *If you do not have a primary care provider please contact the [facility] Resource line at [phone]. They will ask some questions about your medical history and help get you set up with a doctor in the community. *Return to Emergency Department if you should have any new, worsening or concerning symptoms, such as [fever greater than 101 F, shaking chills, worsening pain, persistent vomiting or other bothersome symptoms] Prescriptions: New ofloxacin 0.3 % drops 10 drp EAR-RIGHT DAILY 7 Days Qty: 10 0RF No Action ketorolac 10 mg tablet 10 mg PO Q6H PRN (Reason: pain) Qty: 14 0RF fluticasone propionate [Flonase Allergy Relief] 50 mcg/actuation spray,suspension 1 spray intranasal Q12H PRN (Reason: nasal congestion) Qty: 16 0RF Rx Instructions: administer into each nostril amoxicillin-pot clavulanate 875-125 mg tablet 1 tab PO Q12H Qty: 20 0RF doxycycline hyclate 100 mg tablet 100 mg PO BID Qty: 20 0RF doxycycline hyclate 100 mg tablet 100 mg PO BID Qty: 20 0RF methadone 40 mg tablet,soluble 35 mg PO DAILY doxycycline hyclate 100 mg tablet 100 mg PO BID Qty: 20 0RF Stand Alone Forms: Patient Portal/API
[2022-05-19 00:32] VITALS: BP 121/59; PULSE 95; RESP 16; O2SAT 98
== END 2022-05-19 00:58 | disposition home or self-care (01) ==
PROVIDERS: Emergency Provider Emergency Medicine
DX: L03.211 Cellulitis of face (principal); L02.01 Cutaneous abscess of face; L60.0 Ingrowing nail
CPT/HCPCS: 10061; 36415; 70487; 80053; 82550; 82553; 83605; 84145; 84484; 85025; 87040; 87070; 87075; 87077; 87147; 87186; 87205; 93005; 96365; 96366; 99283; 99284; Q9967

== ENCOUNTER 2022-07-13 00:10 | Emergency (ER) | payer SELFPAY ==
[2022-07-13] VITALS (7 sets, daily range): BP systolic 124–162; BP diastolic 72–94; PULSE 105–119; RESP 16–33; O2SAT 93–99
--- NOTE | 2022-07-13 00:13 | DI.RAD.S_ITS ---
PROCEDURE: XR CHEST 1V INDICATIONS: Chest pain TECHNIQUE: One view of the chest was acquired. COMPARISON: [facility], CR, XR CHEST 1V, 03/30/2022, 18:44. [facility], CR, XR CHEST 1V, 01/25/2022, 10:13. FINDINGS: Surgical changes and devices: None. Lungs and pleura: Lungs are clear. No pleural effusions or pneumothorax. Mediastinum: Mediastinal contours appear normal. Heart size is normal. Bones and chest wall: No suspicious bony lesions. Overlying soft tissues appear unremarkable. IMPRESSION: No acute cardiopulmonary abnormality. Dictated by: Mikey Strickland M.D. on 07/13/2022 at 1:20 Approved by: Mikey Strickland M.D. on 07/13/2022 at 1:20
[2022-07-13 01:13] LABS: Alanine Aminotransferase 31 IU/L (<50); Albumin 4.7 g/dL (3.5-5.0); Albumin Globulin Ratio 1.4 (1.0-2.8); Alkaline Phosphatase 71 U/L (38-126); Aspartate Aminotransferase 32 IU/L (17-59); BUN Creatinine Ratio 23.7 (6-22); Bilirubin Total 0.9 mg/dL (0.2-1.3); Blood Urea Nitrogen 22 mg/dL (9-20); Calcium 9.4 mg/dL (8.4-10.2); Carbon Dioxide 31 mmol/L (22-32); Chloride 101 mmol/L (98-107); Creatine Kinase 87 U/L (55-170); Estimated Glomerular Filt Rate > 60 mL/min (>60); Globulin 3.4 g/dL (1.7-4.1); Glucose 117 mg/dL (70-100); HEMOLYSIS < 15 (0-50); Lipase 51 U/L (23-300); Potassium 3.9 mmol/L (3.4-5.1); Sodium 139 mmol/L (137-145); Total Protein 8.1 g/dL (6.3-8.2)
[2022-07-13 01:24] LABS: Troponin I < 0.012 ng/mL (0.01-0.034)
--- NOTE | 2022-07-13 01:34 | ED_ITS ---
HPI - General Adult General Stated complaint: SEVERE CHEST PAIN Time Seen by Provider: 07/13/22 00:13 Source: patient Mode of arrival: Ambulatory Limitations: no limitations History of Present Illness HPI narrative: Patient is a 46-year-old male. Does have a history of drug abuse. Has been seen multiple times recently for chest discomfort and shortness of breath. He states that for the past couple days he has had pain that is sharp that is on the left side of his chest. He states that it does radiate the left side of his jaw. Has had some coughing. Does describe some shortness of breath because of the pain. No abdominal pain. No nausea vomiting. Related Data Home Medications Medication Instructions Recorded Confirmed methadone 40 mg soluble tablet 35 mg PO DAILY 05/30/20 05/30/20 Previous Rx's Medication Instructions Recorded ketorolac 10 mg tablet 10 mg PO Q6H PRN pain #14 tabs 06/27/20 doxycycline hyclate 100 mg tablet 100 mg PO BID #20 tabs 04/13/21 fluticasone propionate 50 1 spray intranasal Q12H PRN nasal 07/03/21 mcg/actuation nasal congestion #16 grams spray,suspension (Flonase Allergy Relief) amoxicillin 875 mg-potassium 1 tab PO Q12H #20 tabs 08/19/21 clavulanate 125 mg tablet doxycycline hyclate 100 mg tablet 100 mg PO BID #20 tabs 01/13/22 doxycycline hyclate 100 mg tablet 100 mg PO BID #20 tabs 05/18/22 Allergies Allergy/AdvReac Type Severity Reaction Status Date / Time Sulfa (Sulfonamide Allergy Unknown Verified 05/18/22 19:42 Antibiotics) Review of Systems Cardiovascular Cardiovascular: Reports system reviewed and no additional complaints, except as documented Respiratory Respiratory: Reports system reviewed and no additional complaints, except as documented Gastrointestinal Gastrointestinal: Reports system reviewed and no additional complaints, except as documented Integumentary/Breasts Skin/Breast: Reports system reviewed and no additional complaints, except as do cumented Neurologic Neurologic: Reports system reviewed and no additional complaints, except as documented Patient History Medical History Anxiety (Unknown) Degenerative disc disease at L5-S1 level (Unknown) GERD (gastroesophageal reflux disease) (Unknown) 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) Family History Family/Other Loud snoring Obesity Hypertension Heart disease Depression Anxiety Alcohol abuse Father Loud snoring Alcohol abuse Substance abuse Mother Loud snoring Sleep apnea Insomnia Obesity Hypertension Heart disease Depression Anxiety Alcohol abuse Substance abuse Family/Other Loud snoring Insomnia Anxiety Depression Alcohol abuse Substance abuse Family/Other Depression Anxiety Alcohol abuse Social History Smoking Status: Former smoker Smoking Status: Former smoker tobacco type: cigarettes alcohol intake frequency: holidays/special occasions only Substance Use Type: former substance user, heroin, opiates, IV drugs and methamphetamine Exam Initial Vital Signs Initial Vital Signs: Vital Signs Pulse Rate 119 H 07/13/22 00:17 Respiratory Rate 16 07/13/22 00:17 Blood Pressure 159/93 H 07/13/22 00:17 Pulse Oximetry 99 07/13/22 00:17 HENMT Head: normal to inspection and normocephalic Resp Effort & Inspection: normal respiratory effort Auscultation: clear to auscultation bilaterally Cardio Rate: tachycardic Rhythm: regular rhythm GI Inspection: normal to inspection Skin General: no rashes or lesions noted Neuro General: patient alert, patient awake and moves all extremities Extrem General: normal to inspection and capillary refill normal Scores HEART Score Heart Score history: Slightly Suspicious Heart Score EKG: Normal Heart Score Age: < 45 years old Heart Score risk factors: No known risk factors Heart Score troponin: < or = to normal limit Heart Score Total: 0 Course Orders Ordered: ED Orders 07/13/22 00:13 XR chest 1V Stat EKG-12 Lead Stat 07/13/22 00:45 Comprehensive Metabolic Panel Stat Lipase Stat Troponin & CK Cardiac Panel Stat 07/13/22 01:21 Complete Blood Count AUTO DIFF Stat Vital Signs Vital signs: Vital Signs - 8 hr 07/13/22 00:17 07/13/22 00:17 07/13/22 00:30 Pulse Rate 119 H Respiratory Rate 16 Blood Pressure 159/93 H 162/94 H Pulse Oximetry 99 07/13/22 00:30 07/13/22 01:00 07/13/22 01:30 Pulse Rate 112 H 106 H 107 H Respiratory Rate 26 H 20 26 H Blood Pressure Pulse Oximetry 96 96 93 07/13/22 01:31 07/13/22 01:31 07/13/22 02:00 Pulse Rate 108 H 106 H Respiratory Rate 33 H 19 Blood Pressure 124/72 Pulse Oximetry 93 95 07/13/22 02:01 07/13/22 02:01 Pulse Rate 105 H Respiratory Rate 25 H Blood Pressure 151/77 H Pulse Oximetry 93 Medical Decision Making Medical Records Medical records reviewed: Yes I reviewed the patient's medical records. Lab Data Lab results reviewed: Yes I reviewed the patient's lab results. 07/13/22 01:21 07/13/22 00:45 Labs: Lab Results 07/13/22 07/13/22 Range/Units 00:45 01:21 WBC 7.9 (4.5-11.0) X10^3/uL RBC 4.47 L (4.5-5.9) X10^6/uL Hgb 12.7 L (13.5-17.5) g/dL Hct 36.7 L (41-53) % MCV 82.2 (80-100) fL MCH 28.5 (26-34) PG MCHC 34.7 (30-36) % RDW 14.2 (11.6-14.8) % Plt Count 246 (150-400) X10^3/uL Neut % (Auto) 67.8 (50-75) % Lymph % (Auto) 21.3 L (25-40) % Sharp % (Auto) 7.7 (3-14) % Eos % (Auto) 2.6 (2-4) % Baso % (Auto) 0.6 (0-2) % Neut # (Auto) 5400 (4269-8525) /uL Lymph # (Auto) 1700 (2232-6110) /uL Sharp # (Auto) 600 (0-900) /uL Eos # (Auto) 200 (0-450) /uL Baso # (Auto) 0 (0-100) /uL Sodium 139 (137-145) mmol/L Potassium 3.9 (3.4-5.1) mmol/L Chloride 101 (98-107) mmol/L Carbon Dioxide 31 (22-32) mmol/L BUN 22 H (9-20) mg/dL Creatinine 0.93 (0.66-1.25) mg/dL Estimated GFR > 60 (>60) mL/min BUN/Creatinine Ratio 23.7 H (6-22) Glucose 117 H (70-100) mg/dL Calcium 9.4 (8.4-10.2) mg/dL Total Bilirubin 0.9 (0.2-1.3) mg/dL AST 32 (17-59) IU/L ALT 31 (<50) IU/L Alkaline Phosphatase 71 (38-126) U/L Total Creatine Kinase 87 (55-170) U/L CK-MB (CK-2) TNP CK-MB (CK-2) Rel Index TNP Troponin I < 0.012 (0.01-0.034) ng/mL Total Protein 8.1 (6.3-8.2) g/dL Albumin 4.7 (3.5-5.0) g/dL Globulin 3.4 (1.7-4.1) g/dL Albumin/Globulin Ratio 1.4 (1.0-2.8) Lipase 51 (23-300) U/L Imaging Data Chest x-ray: Radiologist's Impression: PROCEDURE:? XR CHEST 1V ? INDICATIONS:? Chest pain ? TECHNIQUE:? One view of the chest was acquired.? ? COMPARISON:? [facility], CR, XR CHEST 1V, 03/30/2022, 18:44.? [facility], CR, XR CHEST 1V, 01/25/2022, 10:13. ? FINDINGS:? ? Surgical changes and devices:? None.? ? Lungs and pleura:? Lungs are clear.? No pleural effusions or pneumothorax.? ? Mediastinum:? Mediastinal contours appear normal.? Heart size is normal.? ? Bones and chest wall:? No suspicious bony lesions.? Overlying soft tissues appear unremarkable.? ? IMPRESSION:? No acute cardiopulmonary abnormality. ? ECG Data Attestation: I personally reviewed and interpreted this ECG as follows: Interpretation: Sinus tachycardia Ventricular rate 112 Normal axis Normal QRS Normal QTC No ST T wave changes MDM Narrative Medical decision making narrative: Troponins negative. Chest x-ray is unremarkable. EKG is unremarkable. Troponins negative. Afebrile. Low suspicion for pneumonia. Does not have a white count. Troponin is negative after several days of symptoms. Had a discussion with him regarding his symptoms. Informed him that he needed to talk with his primary doctor about further workup to include a stress test. He was given return precautions. Discharge Plan Departure Patient Disposition: Home Clinical Impression: Atypical chest pain Instructions: DI for Atypical Chest Pain Activity Restrictions/Additional Instructions: I do recommend that you continue to take all of your medications as directed. You should follow-up with your primary doctor to discuss the indications for further workup of your heart which may include a stress test. Return to the emergency department for worsening symptoms Prescriptions: No Action ketorolac 10 mg tablet 10 mg PO Q6H PRN (Reason: pain) Qty: 14 0RF fluticasone propionate [Flonase Allergy Relief] 50 mcg/actuation spray,suspension 1 spray intranasal Q12H PRN (Reason: nasal congestion) Qty: 16 0RF Rx Instructions: administer into each nostril amoxicillin-pot clavulanate 875-125 mg tablet 1 tab PO Q12H Qty: 20 0RF doxycycline hyclate 100 mg tablet 100 mg PO BID Qty: 20 0RF doxycycline hyclate 100 mg tablet 100 mg PO BID Qty: 20 0RF methadone 40 mg tablet,soluble 35 mg PO DAILY doxycycline hyclate 100 mg tablet 100 mg PO BID Qty: 20 0RF Stand Alone Forms: Patient Portal/API
[2022-07-13 01:35] LABS: Add Manual Diff / Slide Review NO; Basophils Absolute Auto 0 /uL (0-100); Basophils Percent Auto 0.6 % (0-2); Eosinophils Absolute Auto 200 /uL (0-450); Eosinophils Percent Auto 2.6 % (2-4); Hematocrit 36.7 % (41-53); Hemoglobin 12.7 g/dL (13.5-17.5); Lymphocytes Absolute Auto 1700 /uL (1100-4500); Lymphocytes Percent Auto 21.3 % (25-40); Mean Corpuscular HGB Conc 34.7 % (30-36); Mean Corpuscular Hemoglobin 28.5 PG (26-34); Mean Corpuscular Volume 82.2 fL (80-100); Monocytes Absolute Auto 600 /uL (0-900); Monocytes Percent Auto 7.7 % (3-14); Neutrophils Absolute Auto 5400 /uL (1500-7000); Neutrophils Percent Auto 67.8 % (50-75); Platelet Count 246 X10^3/uL (150-400); Red Blood Cell Count 4.47 X10^6/uL (4.5-5.9); Red Cell Distribution Width 14.2 % (11.6-14.8); White Blood Cell Count 7.9 X10^3/uL (4.5-11.0)
== END 2022-07-13 02:37 | disposition home or self-care (01) ==
PROVIDERS: Emergency Provider Emergency Medicine
DX: R07.89 Other chest pain (principal); R06.02 Shortness of breath
CPT/HCPCS: 36415; 71045; 80053; 82550; 83690; 84484; 85025; 93005; 93010; 99283; 99284

== ENCOUNTER 2022-09-17 20:00 | Emergency (ER) | payer SELFPAY ==
[2022-09-17 20:08] VITALS: BP 175/90; PULSE 119; RESP 16; TEMP 37.1; O2SAT 96; BMI 34.0
[2022-09-18] VITALS (15 sets, daily range): BP systolic 105–137; BP diastolic 55–85; PULSE 81–109; O2SAT 93–98
--- NOTE | 2022-09-18 00:39 | ED.SKABFB ---
HPI - Skin/Abscess/Foreign Bdy General Chief complaint: Skin/Abscess/Foreign Body Stated complaint: RT LEG SWOLLEN/POSS INFECTION Time Seen by Provider: 09/18/22 00:39 Source: patient Mode of arrival: Ambulatory History of Present Illness HPI narrative: 46-year-old gentleman with a history of opiate and methamphetamine use disorder presents complaining of right lower extremity redness and pain and an area of concern on the right side of the lower abdomen. He has been tachycardic, has not noticed fevers but is noticing that the right lower extremity with the swelling is becoming more and more tender. He states that his last use of both fentanyl and methamphetamine were early this morning. He is had no cough, palpitations, chills, abdominal pain, vomiting or diarrhea Related Data Home Medications Medication Instructions Recorded Confirmed methadone 40 mg soluble tablet 35 mg PO DAILY 05/30/20 05/30/20 Previous Rx's Medication Instructions Recorded ketorolac 10 mg tablet 10 mg PO Q6H PRN pain #14 tabs 06/27/20 doxycycline hyclate 100 mg tablet 100 mg PO BID #20 tabs 04/13/21 fluticasone propionate 50 1 spray intranasal Q12H PRN nasal 07/03/21 mcg/actuation nasal congestion #16 grams spray,suspension (Flonase Allergy Relief) amoxicillin 875 mg-potassium 1 tab PO Q12H #20 tabs 08/19/21 clavulanate 125 mg tablet doxycycline hyclate 100 mg tablet 100 mg PO BID #20 tabs 01/13/22 doxycycline hyclate 100 mg tablet 100 mg PO BID #20 tabs 05/18/22 Allergies Allergy/AdvReac Type Severity Reaction Status Date / Time Sulfa (Sulfonamide Allergy Unknown Verified 05/18/22 19:42 Antibiotics) Review of Systems Review of Systems Narrative: Pertinent positive and negative findings as per HPI Patient History Medical History Anxiety (Unknown) Degenerative disc disease at L5-S1 level (Unknown) GERD (gastroesophageal reflux disease) (Unknown) 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) Family History Family/Other Loud snoring Obesity Hypertension Heart disease Depression Anxiety Alcohol abuse Father Loud snoring Alcohol abuse Substance abuse Mother Loud snoring Sleep apnea Insomnia Obesity Hypertension Heart disease Depression Anxiety Alcohol abuse Substance abuse Family/Other Loud snoring Insomnia Anxiety Depression Alcohol abuse Substance abuse Family/Other Depression Anxiety Alcohol abuse Social History Smoking Status: Former smoker Smoking Status: Former smoker tobacco type: cigarettes alcohol intake frequency: holidays/special occasions only Substance Use Type: inhalants, IV drugs and other Exam Initial Vital Signs Initial Vital Signs: Vital Signs Temperature 98.7 F 09/17/22 20:08 Pulse Rate 119 H 09/17/22 20:08 Respiratory Rate 16 09/17/22 20:08 Blood Pressure 175/90 H 09/17/22 20:08 Pulse Oximetry 96 09/17/22 20:08 Oxygen Delivery Method Room Air 09/17/22 20:08 General: Healthy appearing, in no acute distress. Able to give a complete and coherent history. Well-nourished well-developed HEENT: Moist mucous membranes, normal sclera with reactive pupils, Neck: No JVD, supple Respiratory: Lungs are clear to auscultation, no wheezing no rales no rhonchi. Full and symmetrical air movement Cardiac: Tachycardic but otherwise Regular rate and rhythm no murmurs no bruits Abdomen: Soft, nontender, good bowel tones, no flank pain. He has an area of cellulitis approximately 20 x 8 cm right lower abdomen without obvious abscess or dryness Skin: No significant track mejía or dramatic ?picking? lesions Neurologic: Grossly neurologically intact with no obvious asymmetries or abnormalities Extremities: Right lower extremity red, warm to the touch, swollen. There is an area of excoriation on the medial aspect of the right ankle that likely is the initial source of infection. The redness does extend up the medial aspect of his right thigh and he does have some mild right inguinal adenopathy Psych: Cooperative, appropriate insight and affect Course Orders Ordered: ED Orders 09/18/22 00:50 Blood Culture Stat Comprehensive Metabolic Panel Stat 09/18/22 00:51 XR chest 1V Stat 09/18/22 01:39 D Dimer Stat Lactate (Lactic Acid) Stat 09/18/22 02:02 Complete Blood Count AUTO DIFF Stat 09/18/22 03:55 US periph venous low extrem rt Stat 09/18/22 06:28 Education, smoking cessation ONGOING Acetaminophen (Acetaminophen 325 Mg Tablet) 650 mg PO Q6H PRN PRN Reason: Fever/Mild Pain (1-3) Hydrocodone Bitart/Acetaminophen (Hydrocodone/Acet 5/325 Tablet) 1 tab PO Q4H PRN PRN Reason: Pain, Moderate (4-6) Bisacodyl (Bisacodyl 5 Mg Tablet) 10 mg PO DAILY PRN PRN Reason: Constipation Hydromorphone HCl (Hydromorphone 4 Mg Tablet) 4 mg PO Q4HR PRN PRN Reason: Pain, Severe (7-10) Hydromorphone HCl (Hydromorphone 0.5 Mg Inj) 0.5 mg IV Q2H PRN PRN Reason: Pain, Severe (7-10) Ceftriaxone Sodium 2,000 mg/ (Sodium Chloride) 100 mls @ 200 mls/hr IV Q24H JOHNNIE Vancomycin HCl 1,250 mg/ (Sodium Chloride) 100 mls @ 100 mls/hr IV Q12H JOHNNIE Naloxone HCl (Naloxone 0.4 Mg/Ml Vial) 0.2 mg IV Q2MIN PRN PRN Reason: Opiate Reversal Ondansetron HCl (Ondansetron 4 Mg/2 Ml Inj) 4 mg IV Q8HR PRN PRN Reason: Nausea And Vomiting Discontinued Medications Sodium Chloride (Normal Saline 0.9%) 1,000 mls @ 1,000 mls/hr IV BOLUS ONE Stop: 09/18/22 01:50 Last Infusion: 09/18/22 02:45 Dose: 0 mls/hr Documented By: Admin: 09/18/22 01:45 Dose: 1,000 mls/hr Documented By: CORRIE Ceftriaxone Sodium 2,000 mg/ (Sodium Chloride) 100 mls @ 200 mls/hr IV NOW ONE Stop: 09/18/22 00:52 Last Infusion: 09/18/22 02:59 Dose: 0 mls/hr Documented By: Admin: 09/18/22 02:22 Dose: 200 mls/hr Documented By: CORRIE Vancomycin HCl/Dextrose (Vancomycin) 2,000 mg in 400 mls @ 200 mls/hr IV NOW ONE Stop: 09/18/22 02:59 Last Infusion: 09/18/22 05:10 Dose: 0 mls/hr Documented By: Admin: 09/18/22 03:00 Dose: 200 mls/hr Documented By: AUSTIN Ketorolac Tromethamine (Ketorolac 30 Mg/Ml Vial) 15 mg IV NOW ONE Stop: 09/18/22 00:52 Last Admin: 09/18/22 01:45 Dose: 15 mg Documented By: CORRIE Vancomycin HCl (Vancomycin Per Pharmacy) 1 request MISC NOW ONE Stop: 09/18/22 00:52 Last Admin: 09/18/22 02:23 Dose: Not Given Documented By: CORRIE Vital Signs Vital signs: Vital Signs - 8 hr 09/18/22 00:15 09/18/22 00:18 09/18/22 00:18 Pulse Rate 109 H 107 H Blood Pressure 136/79 Pulse Oximetry 97 96 Oxygen Delivery Method Room Air Room Air 09/18/22 00:30 09/18/22 00:30 09/18/22 01:00 Pulse Rate 104 H Blood Pressure 137/71 132/82 Pulse Oximetry 95 Oxygen Delivery Method Room Air 09/18/22 01:00 09/18/22 01:43 09/18/22 01:43 Pulse Rate 103 H 101 H Blood Pressure 136/85 Pulse Oximetry 93 96 Oxygen Delivery Method Room Air Room Air 09/18/22 02:00 09/18/22 02:00 09/18/22 02:30 Pulse Rate 102 H Blood Pressure 130/82 126/81 Pulse Oximetry 95 Oxygen Delivery Method Room Air 09/18/22 02:30 09/18/22 03:00 09/18/22 03:00 Pulse Rate 99 H 94 H Blood Pressure 126/62 Pulse Oximetry 94 96 Oxygen Delivery Method Room Air Room Air 09/18/22 03:30 09/18/22 03:30 09/18/22 04:00 Pulse Rate 91 H Blood Pressure 127/66 112/58 L Pulse Oximetry 93 Oxygen Delivery Method Room Air 09/18/22 04:00 09/18/22 04:30 09/18/22 04:30 Pulse Rate 85 84 Blood Pressure 105/55 L Pulse Oximetry 93 93 Oxygen Delivery Method Room Air Room Air 09/18/22 05:00 09/18/22 05:00 09/18/22 05:30 Pulse Rate 87 Blood Pressure 108/71 114/70 Pulse Oximetry 98 Oxygen Delivery Method Room Air 09/18/22 05:30 09/18/22 06:00 09/18/22 06:00 Pulse Rate 81 85 Blood Pressure 111/58 L Pulse Oximetry 98 94 Oxygen Delivery Method Room Air MDM - Skin/Abscess/Foreign Bdy Lab Data 09/18/22 02:02 09/18/22 00:50 Labs: Lab Results 09/18/22 09/18/22 09/18/22 Range/Units 00:50 01:39 01:39 WBC (4.5-11.0) X10^3/uL RBC (4.5-5.9) X10^6/uL Hgb (13.5-17.5) g/dL Hct (41-53) % MCV (80-100) fL MCH (26-34) PG MCHC (30-36) % RDW (11.6-14.8) % Plt Count (150-400) X10^3/uL Neut % (Auto) (50-75) % Lymph % (Auto) (25-40) % [place] % (Auto) (3-14) % Eos % (Auto) (2-4) % Baso % (Auto) (0-2) % Neut # (Auto) (5010-7377) /uL Lymph # (Auto) (3909-1813) /uL [place] # (Auto) (0-900) /uL Eos # (Auto) (0-450) /uL Baso # (Auto) (0-100) /uL D-Dimer 714 H (<500) ng/ml Sodium 139 (137-145) mmol/L Potassium 3.9 (3.4-5.1) mmol/L Chloride 101 (98-107) mmol/L Carbon Dioxide 28 (22-32) mmol/L BUN 19 (9-20) mg/dL Creatinine 0.70 (0.66-1.25) mg/dL Estimated GFR > 60 (>60) mL/min BUN/Creatinine Ratio 27.1 H (6-22) Glucose 98 (70-100) mg/dL Lactate 1.1 (0.7-2.1) mmol/L Calcium 8.9 (8.4-10.2) mg/dL Total Bilirubin 0.7 (0.2-1.3) mg/dL AST 33 (17-59) IU/L ALT 24 (<50) IU/L Alkaline Phosphatase 80 (38-126) U/L Total Protein 7.8 (6.3-8.2) g/dL Albumin 4.1 (3.5-5.0) g/dL Globulin 3.7 (1.7-4.1) g/dL Albumin/Globulin Ratio 1.1 (1.0-2.8) 09/18/22 Range/Units 02:02 WBC 8.8 (4.5-11.0) X10^3/uL RBC 3.95 L (4.5-5.9) X10^6/uL Hgb 11.0 L (13.5-17.5) g/dL Hct 32.4 L (41-53) % MCV 82.1 (80-100) fL MCH 27.9 (26-34) PG MCHC 33.9 (30-36) % RDW 13.4 (11.6-14.8) % Plt Count 271 (150-400) X10^3/uL Neut % (Auto) 70.8 (50-75) % Lymph % (Auto) 14.9 L (25-40) % [place] % (Auto) 10.0 (3-14) % Eos % (Auto) 3.6 (2-4) % Baso % (Auto) 0.7 (0-2) % Neut # (Auto) 6300 (4071-5903) /uL Lymph # (Auto) 1300 (8224-1075) /uL [place] # (Auto) 900 (0-900) /uL Eos # (Auto) 300 (0-450) /uL Baso # (Auto) 100 (0-100) /uL D-Dimer (<500) ng/ml Sodium (137-145) mmol/L Potassium (3.4-5.1) mmol/L Chloride (98-107) mmol/L Carbon Dioxide (22-32) mmol/L BUN (9-20) mg/dL Creatinine (0.66-1.25) mg/dL Estimated GFR (>60) mL/min BUN/Creatinine Ratio (6-22) Glucose (70-100) mg/dL Lactate (0.7-2.1) mmol/L Calcium (8.4-10.2) mg/dL Total Bilirubin (0.2-1.3) mg/dL AST (17-59) IU/L ALT (<50) IU/L Alkaline Phosphatase (38-126) U/L Total Protein (6.3-8.2) g/dL Albumin (3.5-5.0) g/dL Globulin (1.7-4.1) g/dL Albumin/Globulin Ratio (1.0-2.8) MDM Narrative Medical decision making narrative: CC: Swollen red leg and red area to the abdomen, this is acute uncertain prognosis Complicating co-morbidities: Return to use with fentanyl and methamphetamine, currently smoking around 10 fentanyl pills daily Data collected from: patient, Social determinants of health that may influence the patients condition: Polysubstance use, patient is hoping to get back to methadone through the dog while at clinic Medical records reviewed: Prior ER notes with other cellulitis, abscess and atypical chest pain presentations Differential considered: Cellulitis 2 different sites, abscess, DVT. At this point with his tachycardia sepsis is possible, do not suspect necrotizing fasciitis nor endocarditis Exam documented above, pertinent findings include: Right lower extremity swelling and cellulitis focused on the ankle extending up to the knee with bright red erythema and then expanding mild erythema up the medial thigh. Area of well-demarcated cellulitis without abscess to the right lower thigh Lab Test results independently reviewed as above. Pertinent findings: Unremarkable CBC with white blood cell count at 8.8 Chemistries are reassuring with normal creatinine. Lactic is within normal limits at 1.1 Imaging studies independently reviewed: Ultrasound of the right lower extremity does not show DVT Consultations: Discussed with Dr Blas. Patient will be admitted to the hospitalist service Treatments: Fluids, IV vancomycin, IV ceftriaxone Discussion: 46-year-old gentleman with increasing redness swelling and pain to the right lower extremity now with redness extending up the medial aspect of the thigh. Similar cellulitis concern right side of the lower abdomen. Neither site are concerning for necrotizing fasciitis or abscess. Labs do not suggest sepsis, there is no suggestion for osteomyelitis or DVT. He does have a history of fentanyl and methamphetamine use and would like to return to methadone with which he has been successful in the past. Discussion with the patient regarding his symptoms and recommendation for hospitalization given the extent of his to areas of cellulitis. He is willing to consider this. Mora that methadone dosing in the hospital would likely be most effective to help him avoid withdrawal symptoms. Discharge Plan Departure Patient Disposition: Admitted as Observation Clinical Impression: Cellulitis of leg, right, Abdominal wall cellulitis, Opioid use disorder, Methamphetamine use disorder, moderate Prescriptions: No Action ketorolac 10 mg tablet 10 mg PO Q6H PRN (Reason: pain) Qty: 14 0RF fluticasone propionate [Flonase Allergy Relief] 50 mcg/actuation spray,suspension 1 spray intranasal Q12H PRN (Reason: nasal congestion) Qty: 16 0RF Rx Instructions: administer into each nostril amoxicillin-pot clavulanate 875-125 mg tablet 1 tab PO Q12H Qty: 20 0RF doxycycline hyclate 100 mg tablet 100 mg PO BID Qty: 20 0RF doxycycline hyclate 100 mg tablet 100 mg PO BID Qty: 20 0RF methadone 40 mg tablet,soluble 35 mg PO DAILY doxycycline hyclate 100 mg tablet 100 mg PO BID Qty: 20 0RF Admit Date/Time: 09/18/22 06:37 Admit Provider: Gonzalo Coughlin
--- NOTE | 2022-09-18 00:51 | DI.RAD.S_ITS ---
PROCEDURE: XR CHEST 1V INDICATIONS: tachycardia TECHNIQUE: One view of the chest was acquired. COMPARISON: [facility], CR, XR CHEST 1V, 07/13/2022, 0:56. FINDINGS: Surgical changes and devices: None. Lungs and pleura: Lungs are clear. No pleural effusions or pneumothorax. Mediastinum: Mediastinal contours appear normal. Heart size is normal. Bones and chest wall: No suspicious bony lesions. Overlying soft tissues appear unremarkable. IMPRESSION: No acute cardiopulmonary disease. No significant discrepancy with the retail shift leader radiology preliminary report. Dictated by: Sunny Lemus M.D. on 09/18/2022 at 8:22 Approved by: Sunny Lemus M.D. on 09/18/2022 at 8:22
[2022-09-18] MEDS: KETOROLAC 30 MG/ML VIAL 15 MG IV (01:45)
[2022-09-18] MEDS: SODIUM CHLORIDE 0.9% 1,000 ML 1000 ML IV (01:45)
[2022-09-18 01:55] LABS: Lactate (Lactic Acid) 1.1 mmol/L (0.7-2.1)
[2022-09-18 01:58] LABS: Alanine Aminotransferase 24 IU/L (<50); Albumin 4.1 g/dL (3.5-5.0); Albumin Globulin Ratio 1.1 (1.0-2.8); Alkaline Phosphatase 80 U/L (38-126); Aspartate Aminotransferase 33 IU/L (17-59); BUN Creatinine Ratio 27.1 (6-22); Bilirubin Total 0.7 mg/dL (0.2-1.3); Blood Urea Nitrogen 19 mg/dL (9-20); Calcium 8.9 mg/dL (8.4-10.2); Carbon Dioxide 28 mmol/L (22-32); Chloride 101 mmol/L (98-107); Estimated Glomerular Filt Rate > 60 mL/min (>60); Globulin 3.7 g/dL (1.7-4.1); Glucose 98 mg/dL (70-100); HEMOLYSIS 53 (0-50); Potassium 3.9 mmol/L (3.4-5.1); Sodium 139 mmol/L (137-145); Total Protein 7.8 g/dL (6.3-8.2)
[2022-09-18 02:07] LABS: D Dimer 714 ng/ml (<500)
[2022-09-18 02:09] LABS: Add Manual Diff / Slide Review NO; Basophils Absolute Auto 100 /uL (0-100); Basophils Percent Auto 0.7 % (0-2); Eosinophils Absolute Auto 300 /uL (0-450); Eosinophils Percent Auto 3.6 % (2-4); Hematocrit 32.4 % (41-53); Lymphocytes Absolute Auto 1300 /uL (1100-4500); Lymphocytes Percent Auto 14.9 % (25-40); Mean Corpuscular HGB Conc 33.9 % (30-36); Mean Corpuscular Hemoglobin 27.9 PG (26-34); Mean Corpuscular Volume 82.1 fL (80-100); Monocytes Absolute Auto 900 /uL (0-900); Neutrophils Absolute Auto 6300 /uL (1500-7000); Neutrophils Percent Auto 70.8 % (50-75); Platelet Count 271 X10^3/uL (150-400); Red Blood Cell Count 3.95 X10^6/uL (4.5-5.9); Red Cell Distribution Width 13.4 % (11.6-14.8); White Blood Cell Count 8.8 X10^3/uL (4.5-11.0)
--- NOTE | 2022-09-18 02:16 | PC.NURSE ---
[place] HUITRON attempted IV insert 2x and was successful on the second try. Able to attain first set of blood cultures, unable to to attain a second set. Lab attempted to attain a second set of blood cultures but unsuccessful. Dr. Sultana notified, verbal order to begin IV antibiotics.
[2022-09-18] MEDS: cefTRIAXone 2,000 MG in SODIUM CHLORIDE 0.9% 100 ML 200 MG IV (02:22)
[2022-09-18] MEDS: VANCOMYCIN 2,000 MG/400 ML PIGGYBACK 200 MG IV (03:00)
--- NOTE | 2022-09-18 03:55 | DI.US.S_ITS ---
PROCEDURE: US PERIPH VENOUS LOW EXTREM RT INDICATIONS: EDEMA/REDNESS/TENDERNESS X 1 WEEK. TWO NEW WOUNDS X 1 WEEK. TECHNIQUE: Real-time imaging, as well as color and pulse Doppler interrogation, were performed of the lower extremity deep veins from the inguinal ligament to the popliteal fossa, with documentation of the visualized calf veins. COMPARISON: [facility], , US PERIP VENOUS LOW EXTREM RT, 05/10/2021, 2:25. FINDINGS: The common femoral, femoral, popliteal, and the visualized calf veins are normally compressible, and free of intraluminal thrombus. Color and pulse Doppler demonstrate normal phasic intraluminal flow. There is normal augmentation response to distal compression maneuver. Soft tissue edema in calf. Enlarged lymph nodes in the right groin. The largest in the measures 4.6 x 2.8 x 1.2 cm. IMPRESSION: 1. No DVT in the right lower extremity. 2. Right inguinal lymphadenopathy. 3. Soft tissue edema in the right calf. No significant discrepancy with the assistant shift supervisor radiology preliminary report. Dictated by: Sunny Lemus M.D. on 09/18/2022 at 8:31 Approved by: Sunny Lemus M.D. on 09/18/2022 at 8:33
== END 2022-09-18 07:19 | disposition admitted as inpatient to this hospital (09) ==
LOC: ED 09-18 00:39 → AC 09-18 06:38
PROVIDERS: Emergency Provider Emergency Medicine
DX: L03.115 Cellulitis of right lower limb (principal); L03.311 Cellulitis of abdominal wall; F11.90 Opioid use, unspecified, uncomplicated; F15.20 Other stimulant dependence, uncomplicated; R00.0 Tachycardia, unspecified
CPT/HCPCS: 36415; 71045; 80053; 83605; 85025; 85379; 87040; 93971; 96365; 96366; 96367; 96375; 99284; J0696; J1885

== ENCOUNTER 2022-09-18 16:22 | Inpatient (IN) | payer SELFPAY ==
[2022-09-18 16:26] VITALS: BP 162/85; PULSE 109; RESP 18; TEMP 36.8; O2SAT 95; BMI 34.0
--- NOTE | 2022-09-18 16:50 | ED.SKABFB ---
HPI - Skin/Abscess/Foreign Bdy <Love Wise, [facility] - Last Filed: 09/18/22 17:42> General Chief complaint: Skin/Abscess/Foreign Body Stated complaint: infection Time Seen by Provider: 09/18/22 16:37 Source: patient Mode of arrival: Ambulatory Limitations: no limitations History of Present Illness HPI narrative: This is a 46-year-old gentleman who returns to the emergency department after leaving this morning with concerns about his cellulitis of his right leg, right abdominal wall, history of opioid use disorder, methamphetamine use, and he left Against Medical Advice due to ?things he needed to take care of today ?. He states that he would like to be admitted and states that his pain has gotten worse. He was seen in the emergency department around midnight last night, left after he was admitted to the hospital prior to transfer. He has right-sided abdominal wall cellulitis, states that his last use of both fentanyl and methamphetamine was earlier today. Denies any cough, chills, deep abdominal pain, nausea, vomiting and diarrhea. He received ceftriaxone, vancomycin, Toradol, Dilaudid, and had no leukocytosis or significant anemia, his D-dimer was mildly elevated at 07:14, lactate 1 1, blood cultures were obtained and are still pending. He has a swollen right leg and red area to the right abdomen, states he currently smokes approximally 10 fentanyl pills each day. Patient is hoping to get back on methadone. Related Data Home Medications Medication Instructions Recorded Confirmed methadone 40 mg soluble tablet 35 mg PO DAILY 05/30/20 05/30/20 Previous Rx's Medication Instructions Recorded ketorolac 10 mg tablet 10 mg PO Q6H PRN pain #14 tabs 06/27/20 doxycycline hyclate 100 mg tablet 100 mg PO BID #20 tabs 04/13/21 fluticasone propionate 50 1 spray intranasal Q12H PRN nasal 07/03/21 mcg/actuation nasal congestion #16 grams spray,suspension (Flonase Allergy Relief) amoxicillin 875 mg-potassium 1 tab PO Q12H #20 tabs 08/19/21 clavulanate 125 mg tablet doxycycline hyclate 100 mg tablet 100 mg PO BID #20 tabs 01/13/22 doxycycline hyclate 100 mg tablet 100 mg PO BID #20 tabs 05/18/22 Allergies Allergy/AdvReac Type Severity Reaction Status Date / Time Sulfa (Sulfonamide Allergy Unknown Verified 05/18/22 19:42 Antibiotics) Review of Systems <LASHELL Hanks - Last Filed: 09/18/22 17:42> Review of Systems ROS Unobtainable: All systems reviewed & are unremarkable except as noted in HPI and below Patient History <LASHELL Hanks - Last Filed: 09/18/22 17:42> Medical History Anxiety (Unknown) Degenerative disc disease at L5-S1 level (Unknown) GERD (gastroesophageal reflux disease) (Unknown) 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) Family History Family/Other Loud snoring Obesity Hypertension Heart disease Depression Anxiety Alcohol abuse Father Loud snoring Alcohol abuse Substance abuse Mother Loud snoring Sleep apnea Insomnia Obesity Hypertension Heart disease Depression Anxiety Alcohol abuse Substance abuse Family/Other Loud snoring Insomnia Anxiety Depression Alcohol abuse Substance abuse Family/Other Depression Anxiety Alcohol abuse Social History Smoking Status: Former smoker Smoking Status: Former smoker tobacco type: cigarettes alcohol intake frequency: holidays/special occasions only Substance Use Type: inhalants, IV drugs and other Exam <LASHELL Hanks - Last Filed: 09/18/22 17:42> Narrative Exam Narrative: General: Mildly diaphoretic with activity, in no acute distress.? Able to give a complete and coherent history.? Well-nourished well-developed HEENT:? Moist mucous membranes, normal sclera with reactive pupils, patches erythema and lesions to his scalp, 3 areas with small scabs, no fluctuance or abscess palpable Neck:? No JVD, supple Respiratory:?Lungs are clear to auscultation, no wheezing no rales no rhonchi.? Full and symmetrical air movement Cardiac:?Tachycardic but otherwise Regular rate and rhythm no murmurs no bruits Abdomen:? Soft, nontender, good bowel tones, no flank pain.? He has an area of cellulitis approximately 20 x 8 cm right lower abdomen without obvious abscess or dryness, it is erythematous without fluctuant area Skin: No significant track mejía or lesions Neurologic:?Grossly neurologically intact with no obvious asymmetries or abnormalities Extremities:? Right lower extremity red, warm to the touch, swollen.? There is an area of excoriation on the medial aspect of the right ankle that likely is the initial source of infection.? The redness does extend up the medial aspect of his right thigh and he does have some mild right inguinal adenopathy Psych:? Cooperative, appropriate insight and affect Initial Vital Signs Initial Vital Signs: Vital Signs Temperature 98.2 F 09/18/22 16:26 Pulse Rate 109 H 09/18/22 16:26 Respiratory Rate 18 09/18/22 16:26 Blood Pressure 162/85 H 09/18/22 16:26 Pulse Oximetry 95 09/18/22 16:26 Oxygen Delivery Method Room Air 09/18/22 16:26 <Armando Laboy DO - Last Filed: 09/18/22 17:42> Initial Vital Signs Initial Vital Signs: Vital Signs Temperature 98.2 F 09/18/22 16:26 Pulse Rate 109 H 09/18/22 16:26 Respiratory Rate 18 09/18/22 16:26 Blood Pressure 162/85 H 09/18/22 16:26 Pulse Oximetry 95 09/18/22 16:26 Oxygen Delivery Method Room Air 09/18/22 16:26 Course <LASHELL Hanks - Last Filed: 09/18/22 17:42> Orders Ordered: ED Orders 09/18/22 17:10 CBC Auto Diff [Complete Blood Count AUTO DIFF] Stat CMP [Comprehensive Metabolic Panel] Stat Lactate (Lactic Acid) Stat 09/19/22 16:30 Vancomycin Trough Urgent Sodium Chloride (Normal Saline 0.9%) 1,000 mls @ 1,000 mls/hr IV BOLUS ONE Stop: 09/18/22 17:45 Last Admin: 09/18/22 17:24 Dose: 1,000 mls/hr Documented By: RUTH Vancomycin HCl/Dextrose (Vancomycin) 1,500 mg in 300 mls @ 200 mls/hr IV NOW ONE Stop: 09/18/22 18:29 Vancomycin HCl (Vancomycin) 1,250 mg in 250 mls @ 166.667 mls/hr IV Q8H JOHNNIE Vancomycin HCl (Vancomycin Trough) 1 request [facility] [id number] ONE Stop: 09/19/22 16:31 Discontinued Medications Hydromorphone HCl (Hydromorphone 0.5 Mg Inj) 0.5 mg IV NOW ONE Stop: 09/18/22 16:54 Ceftriaxone Sodium 2,000 mg/ (Sodium Chloride) 100 mls @ 200 mls/hr IV NOW ONE Stop: 09/18/22 16:50 Last Admin: 09/18/22 17:24 Dose: 200 mls/hr Documented By: RUTH Ketorolac Tromethamine (Ketorolac 30 Mg/Ml Vial) 15 mg IV NOW ONE Stop: 09/18/22 16:54 Last Admin: 09/18/22 17:24 Dose: 15 mg Documented By: RUTH Vancomycin HCl (Vancomycin Per Pharmacy) 1 request MISC NOW ONE Stop: 09/18/22 16:50 Vital Signs Vital signs: Vital Signs - 8 hr 09/18/22 16:26 Temperature 98.2 F Pulse Rate 109 H Respiratory Rate 18 Blood Pressure 162/85 H Pulse Oximetry 95 Oxygen Delivery Method Room Air <Armando Laboy DO - Last Filed: 09/18/22 17:42> Orders Ordered: ED Orders 09/18/22 17:10 CBC Auto Diff [Complete Blood Count AUTO DIFF] Stat CMP [Comprehensive Metabolic Panel] Stat Lactate (Lactic Acid) Stat 09/19/22 16:30 Vancomycin Trough Urgent Sodium Chloride (Normal Saline 0.9%) 1,000 mls @ 1,000 mls/hr IV BOLUS ONE Stop: 09/18/22 17:45 Last Admin: 09/18/22 17:24 Dose: 1,000 mls/hr Documented By: RUTH Vancomycin HCl/Dextrose (Vancomycin) 1,500 mg in 300 mls @ 200 mls/hr IV NOW ONE Stop: 09/18/22 18:29 Vancomycin HCl (Vancomycin) 1,250 mg in 250 mls @ 166.667 mls/hr IV Q8H [facility] Vancomycin HCl (Vancomycin Trough) 1 request MISC 1634 ONE Stop: 09/19/22 16:31 Discontinued Medications Hydromorphone HCl (Hydromorphone 0.5 Mg Inj) 0.5 mg IV NOW ONE Stop: 09/18/22 16:54 Ceftriaxone Sodium 2,000 mg/ (Sodium Chloride) 100 mls @ 200 mls/hr IV NOW ONE Stop: 09/18/22 16:50 Last Admin: 09/18/22 17:24 Dose: 200 mls/hr Documented By: RUTH Ketorolac Tromethamine (Ketorolac 30 Mg/Ml Vial) 15 mg IV NOW ONE Stop: 09/18/22 16:54 Last Admin: 09/18/22 17:24 Dose: 15 mg Documented By: RUTH Vancomycin HCl (Vancomycin Per Pharmacy) 1 request MISC NOW ONE Stop: 09/18/22 16:50 Vital Signs Vital signs: Vital Signs - 8 hr 09/18/22 16:26 Temperature 98.2 F Pulse Rate 109 H Respiratory Rate 18 Blood Pressure 162/85 H Pulse Oximetry 95 Oxygen Delivery Method Room Air MDM - Skin/Abscess/Foreign Bdy <Love Wise, [employer] - Last Filed: 09/18/22 17:42> Lab Data 09/18/22 17:10 09/18/22 17:10 Labs: Lab Results 09/18/22 09/18/22 09/18/22 Range/Units 17:10 17:10 17:10 WBC 8.7 (4.5-11.0) X10^3/uL RBC 4.40 L (4.5-5.9) X10^6/uL Hgb 12.4 L (13.5-17.5) g/dL Hct 36.3 L (41-53) % MCV 82.4 (80-100) fL MCH 28.1 (26-34) PG MCHC 34.1 (30-36) % RDW 13.5 (11.6-14.8) % Plt Count 275 (150-400) X10^3/uL Neut % (Auto) 75.5 H (50-75) % Lymph % (Auto) 13.9 L (25-40) % [place] % (Auto) 6.9 (3-14) % Eos % (Auto) 3.2 (2-4) % Baso % (Auto) 0.5 (0-2) % Neut # (Auto) 6600 (4811-6387) /uL Lymph # (Auto) 1200 (4463-9685) /uL [place] # (Auto) 600 (0-900) /uL Eos # (Auto) 300 (0-450) /uL Baso # (Auto) 0 (0-100) /uL Sodium 138 (137-145) mmol/L Potassium 3.7 (3.4-5.1) mmol/L Chloride 101 (98-107) mmol/L Carbon Dioxide 30 (22-32) mmol/L BUN 20 (9-20) mg/dL Creatinine 0.73 (0.66-1.25) mg/dL Estimated GFR > 60 (>60) mL/min BUN/Creatinine Ratio 27.4 H (6-22) Glucose 106 H (70-100) mg/dL Lactate 0.7 (0.7-2.1) mmol/L Calcium 8.7 (8.4-10.2) mg/dL Total Bilirubin 0.7 (0.2-1.3) mg/dL AST 34 (17-59) IU/L ALT 26 (<50) IU/L Alkaline Phosphatase 95 (38-126) U/L Total Protein 8.0 (6.3-8.2) g/dL Albumin 4.1 (3.5-5.0) g/dL Globulin 3.9 (1.7-4.1) g/dL Albumin/Globulin Ratio 1.1 (1.0-2.8) MDM Narrative Medical decision making narrative: Chief Complaint: Return for admission for cellulitis, Swollen red leg and red area to the abdomen Multiple etiologies for patient's complaint considered including, but not limited to: Cellulitis in 3 different sites, abscess, DVT, he is tachycardic and sepsis is possible however he has received vancomycin and Rocephin prior to his admission today and I do not suspect necrotizing fasciitis or endocarditis at this point I have independently reviewed the patient's vital signs and nursing notes as well as prior records if available. I have reviewed prior ER notes with other cellulitis, abscess and atypical chest pain presentations Plan: Repeat lab work, pain control, midline placement and admission for IV antibiotics Course of Care: Exam documented in his above, patient has right lower extremity erythema and edema with cellulitis extending up to his knee and then mild erythema up to the medial thigh, right lower thigh with cellulitis with abscess Consultation with hospitalist who requests repeat lab work prior to admission. Lab work does not show any leukocytosis, WBCs 8.7, left shift with a neutrophil percentage of 75.5, chemistries unremarkable Consultation with Dr. cAosta hospitalist to come and see the patient. I talked with the patient who states that he will not be leaving and is concerned for his own wellness so he will be staying in the hospital tonight, he received ceftriaxone and vancomycin last night, vanco trough pending, patient will be treated with ceftriaxone and vancomycin again. He had a vascular ultrasound completed at 03:55 which was negative for DVT, showed right inguinal lymphadenopathy and soft tissue edema to the right calf. His chest x-ray was negative for acute abnormality. Review of diagnostics: Patient is without leukocytosis, mild anemia, his labs are consistent with prior now with a left shift, Social considerations that may affect disposition: Polysubstance abuse Questions are addressed and there is agreement with the plan. I consulted with the ED attending physician Dr. Laboy as needed for higher level of care considerations and they were available for discussion and recommendations regarding plan of care and diagnostic testing. <Armando Laboy, DO - Last Filed: 09/18/22 17:42> Lab Data Labs: Lab Results 09/18/22 09/18/22 09/18/22 Range/Units 17:10 17:10 17:10 WBC 8.7 (4.5-11.0) X10^3/uL RBC 4.40 L (4.5-5.9) X10^6/uL Hgb 12.4 L (13.5-17.5) g/dL Hct 36.3 L (41-53) % MCV 82.4 (80-100) fL MCH 28.1 (26-34) PG MCHC 34.1 (30-36) % RDW 13.5 (11.6-14.8) % Plt Count 275 (150-400) X10^3/uL Neut % (Auto) 75.5 H (50-75) % Lymph % (Auto) 13.9 L (25-40) % [place] % (Auto) 6.9 (3-14) % Eos % (Auto) 3.2 (2-4) % Baso % (Auto) 0.5 (0-2) % Neut # (Auto) 6600 (8868-6816) /uL Lymph # (Auto) 1200 (6323-2178) /uL [place] # (Auto) 600 (0-900) /uL Eos # (Auto) 300 (0-450) /uL Baso # (Auto) 0 (0-100) /uL Sodium 138 (137-145) mmol/L Potassium 3.7 (3.4-5.1) mmol/L Chloride 101 (98-107) mmol/L Carbon Dioxide 30 (22-32) mmol/L BUN 20 (9-20) mg/dL Creatinine 0.73 (0.66-1.25) mg/dL Estimated GFR > 60 (>60) mL/min BUN/Creatinine Ratio 27.4 H (6-22) Glucose 106 H (70-100) mg/dL Lactate 0.7 (0.7-2.1) mmol/L Calcium 8.7 (8.4-10.2) mg/dL Total Bilirubin 0.7 (0.2-1.3) mg/dL AST 34 (17-59) IU/L ALT 26 (<50) IU/L Alkaline Phosphatase 95 (38-126) U/L Total Protein 8.0 (6.3-8.2) g/dL Albumin 4.1 (3.5-5.0) g/dL Globulin 3.9 (1.7-4.1) g/dL Albumin/Globulin Ratio 1.1 (1.0-2.8) Discharge Plan Departure Patient Disposition: Admitted as Observation Clinical Impression: Abdominal wall cellulitis, Cellulitis of leg, right, Polysubstance (excluding opioids) dependence, daily use, History of MRSA infection <Armando Laboy, DO - Last Filed: 09/18/22 17:42> Cosign ED Attending Cosignature Attestation: Dr Laboy Co-Sign Statement: I was available for consultation during this patient's emergency department visit. This chart is signed by myself for administrative purposes only. I did not have direct contact with this patient during this visit. They were seen independently by the APC.
[2022-09-18 17:16] LABS: Add Manual Diff / Slide Review NO; Basophils Absolute Auto 0 /uL (0-100); Basophils Percent Auto 0.5 % (0-2); Eosinophils Absolute Auto 300 /uL (0-450); Eosinophils Percent Auto 3.2 % (2-4); Hematocrit 36.3 % (41-53); Hemoglobin 12.4 g/dL (13.5-17.5); Lymphocytes Absolute Auto 1200 /uL (1100-4500); Lymphocytes Percent Auto 13.9 % (25-40); Mean Corpuscular HGB Conc 34.1 % (30-36); Mean Corpuscular Hemoglobin 28.1 PG (26-34); Mean Corpuscular Volume 82.4 fL (80-100); Monocytes Absolute Auto 600 /uL (0-900); Monocytes Percent Auto 6.9 % (3-14); Neutrophils Absolute Auto 6600 /uL (1500-7000); Neutrophils Percent Auto 75.5 % (50-75); Platelet Count 275 X10^3/uL (150-400); Red Cell Distribution Width 13.5 % (11.6-14.8); White Blood Cell Count 8.7 X10^3/uL (4.5-11.0)
[2022-09-18] MEDS: KETOROLAC 30 MG/ML VIAL 15 MG IV (17:24)
[2022-09-18] MEDS: SODIUM CHLORIDE 0.9% 1,000 ML 1000 ML IV (17:24)
[2022-09-18] MEDS: cefTRIAXone 2,000 MG in SODIUM CHLORIDE 0.9% 100 ML 200 MG IV (17:24)
[2022-09-18 17:29] LABS: Alanine Aminotransferase 26 IU/L (<50); Albumin 4.1 g/dL (3.5-5.0); Albumin Globulin Ratio 1.1 (1.0-2.8); Alkaline Phosphatase 95 U/L (38-126); Aspartate Aminotransferase 34 IU/L (17-59); BUN Creatinine Ratio 27.4 (6-22); Bilirubin Total 0.7 mg/dL (0.2-1.3); Blood Urea Nitrogen 20 mg/dL (9-20); Calcium 8.7 mg/dL (8.4-10.2); Carbon Dioxide 30 mmol/L (22-32); Chloride 101 mmol/L (98-107); Estimated Glomerular Filt Rate > 60 mL/min (>60); Globulin 3.9 g/dL (1.7-4.1); Glucose 106 mg/dL (70-100); HEMOLYSIS < 15 (0-50); Potassium 3.7 mmol/L (3.4-5.1); Sodium 138 mmol/L (137-145)
[2022-09-18 17:30] LABS: Lactate (Lactic Acid) 0.7 mmol/L (0.7-2.1)
--- NOTE | 2022-09-18 17:58 | P.HP_ITS ---
History of Present Illness History of Present Illness Date Patient Seen: 09/18/22 Time Patient Seen: 17:58 Chief complaint: infection Narrative: This is a 46 year old male with PMH of IVDU in the past, chronic back pain with polysubstance use (meth and smokes fentanyl) who presented actually early this morning with worsening leg pain over the past 2-3 days. It started with a white head that popped and has spread up and down his R leg. He left AMA prior to ad ng admitted. He was sent antibiotics but did not realize they were sent to the pharmacy when he left. He went home and smoked fentanyl and meth and then returned as his pain again worsened. He reported initial improvement with IV antibiotics but then worsened pain. He also notes a worsening cellulitis on his R abdomen, with similar pimple popping a few days ago. He felt chilly the last few days but denies fever. No nausea or vomiting. In the ER, his vitals were notable for tachycardia. Labs showed no leukocytosis, similar to prior. No significant chemistry abnormalities. He was given ceftriaxone, vancomycin ordered per pharmacy. Admitted for further management. [facility] Medical History Anxiety (Unknown) Degenerative disc disease at L5-S1 level (Unknown) GERD (gastroesophageal reflux disease) (Unknown) 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) Polysubstance use disorder Surgical History H/O hand surgery Family History Family/Other Loud snoring Obesity Hypertension Heart disease Depression Anxiety Alcohol abuse Father Loud snoring Alcohol abuse Substance abuse Mother Loud snoring Sleep apnea Insomnia Obesity Hypertension Heart disease Depression Anxiety Alcohol abuse Substance abuse Family/Other Loud snoring Insomnia Anxiety Depression Alcohol abuse Substance abuse Family/Other Depression Anxiety Alcohol abuse Social History Smoking Status: Former smoker Meds Home Medications and Allergies Home Medications Medication Instructions Recorded Confirmed Type methadone 40 mg soluble tablet 35 mg PO DAILY 05/30/20 05/30/20 History ketorolac 10 mg tablet 10 mg PO Q6H PRN pain #14 tabs 06/27/20 Rx fluticasone propionate 50 1 spray intranasal Q12H PRN nasal 07/03/21 Rx mcg/actuation nasal congestion #16 grams spray,suspension (Flonase Allergy Relief) amoxicillin 875 mg-potassium 1 tab PO Q12H #20 tabs 08/19/21 Rx clavulanate 125 mg tablet doxycycline hyclate 100 mg tablet 100 mg PO BID #20 tabs 05/18/22 Rx Allergies Allergy/AdvReac Type Severity Reaction Status Date / Time Sulfa (Sulfonamide Allergy Unknown Verified 05/18/22 19:42 Antibiotics) Review of Systems Review of Systems Narrative: All other systems reviewed with the patient and are negative unless otherwise stated. Exam Vital Signs (past 8 hours): - 09/18/22 16:26 Temperature 98.2 F Pulse Rate 109 H Respiratory Rate 18 Blood Pressure 162/85 H Pulse Oximetry 95 Oxygen Delivery Method Room Air Oxygen Delivery Method Room Air Narrative Exam Narrative: General:? Patient is well developed and well nourished, in no distress at this time but is mildly diaphoretic HEENT:? Normocephalic, atraumatic, extraocular muscles intact, oral pharynx is clear and mucous membranes are moist. Neck: supple and symmetric, trachea is midline, no cervical adenopathy. Negative for JVD Chest:? Normal AP diameter and contour without kyphoscoliosis, no tachypnea, equal chest rise bilaterally. Lungs:? CTA b/l no wheezing rhonchi or rales. Cardio: tachycardic with regular rhythm. Abdomen: S NT ND. R 8 cm x 4 cm cellulitis, with erythema warmth and tenderness, with central approx 1 cm eschar centrally. Musculoskeletal:? Muscle strength and tone are equal within normal limits, no deformity. Extremities: bilateral LE non pitting edema, with R >L. RLE with mild erythema, warmth, and tenderness. R lee anterior eschar approx 1.5 cm. Skin:? Pale,? Warm to touch,dry and intact without other rashes ulcerations or petechiae than described above, Neuro:? Alert and orientated x3,? sensation to touch intact in all extremities, no gross deficits noted of cranial nerves. Psych:? Patient has a well-kept appearance, appropriate affect, mental status attitude thought context and judgment are appropriate for age. Objective Labs 09/18/22 17:10 09/18/22 17:10 Labs: Laboratory Results - last 24 hr 09/18/22 09/18/22 09/18/22 17:10 17:10 17:10 WBC 8.7 RBC 4.40 L Hgb 12.4 L Hct 36.3 L MCV 82.4 MCH 28.1 MCHC 34.1 RDW 13.5 Plt Count 275 Neut % (Auto) 75.5 H Lymph % (Auto) 13.9 L [place] % (Auto) 6.9 Eos % (Auto) 3.2 Baso % (Auto) 0.5 Neut # (Auto) 6600 Lymph # (Auto) 1200 [place] # (Auto) 600 Eos # (Auto) 300 Baso # (Auto) 0 Sodium 138 Potassium 3.7 Chloride 101 Carbon Dioxide 30 BUN 20 Creatinine 0.73 Estimated GFR > 60 BUN/Creatinine Ratio 27.4 H Glucose 106 H Lactate 0.7 Calcium 8.7 Total Bilirubin 0.7 AST 34 ALT 26 Alkaline Phosphatase 95 Total Protein 8.0 Albumin 4.1 Globulin 3.9 Albumin/Globulin Ratio 1.1 Assessment & Plan Assessment & Plan narrative: 1. Right leg and abdominal wall cellulitis - concern for xylazine ulcerations, though mild, counseled patient on association with smoking fentanyl - continue ceftriaxone and vanco per pharmacy - follow up blood cultures - DVT study negative this AM, though there is likely reactive lymphadenopathy. - ESR, CRP ordered for AM - suspect with opiate use need for IV and oral opiate pain control. - Check A1c, though glucose on BMP is <100. 2. Polysubstance use with methamphetamine and fentanyl with probable opiate withdrawal - start methadone 20 mg BID, will probably need large doses of opiates as well. He refuses suboxone. - suspect withdrawal already starting with pain return and tachcyardia, mild diaphoretic appearance. - will order prn benzos as well for withdrawal symptoms Code: Full, surrogate is patient's mom or son Dispo: Admit as inpatient as his stay is expected to exceed two midnights. I have utilized all available immediate resources to obtain, update, or review the patient's current medications. Additional history obtained via discussion with ER provider and inital overnight provider from prior ER visit. I have reviewed patient's labs, and relevant imaging (DVT study) and documentation. Discussed plan of care with patient. Quality MIPS - Admit I confirm the patient?s Advance Care Plan is present, Code status is documented, Surrogate decision maker is in patient?s record [If Yes, STOP here]: Yes
--- NOTE | 2022-09-18 18:04 | PC.NURSE ---
Pt has swollen redness with drainage on the top of his scalp in multiple locations. Right sided abdomen has redness and is firm to the touch, painful. Right calf is swollen, red, painful. Multiple scratches on his body.
[2022-09-18 18:29] VITALS: BMI 34.0
[2022-09-18 18:36] VITALS: BP 118/68; PULSE 104; RESP 18; TEMP 35.8; O2SAT 98
[2022-09-18 20:00] VITALS: BP 118/66; PULSE 101; RESP 22; TEMP 36.1; O2SAT 97
[2022-09-18] MEDS: VANCOMYCIN 2,000 MG/400 ML PIGGYBACK 200 MG IV (20:04)
[2022-09-18] MEDS: METHADONE 10 MG TABLET 20 MG PO (21:22)
--- NOTE | 2022-09-18 23:05 | PC.NURSE ---
Pt left AMA stating i have things to get in order at home. Midline removed and AMA form signed. Notified doctor.
== END 2022-09-18 23:00 | disposition left against medical advice (07) | DRG 603 ==
LOC: ED 17:41 → AC 17:54
PROVIDERS: Admitting Provider Internal Medicine; Emergency Provider Nurse Practitioner Critical Care Medicine; Referring Provider Nurse Practitioner Critical Care Medicine; Visit Provider Internal Medicine
DX: L03.311 Cellulitis of abdominal wall (principal); L03.115 Cellulitis of right lower limb; F15.93 Other stimulant use, unspecified with withdrawal; F11.93 Opioid use, unspecified with withdrawal; Z53.29 Procedure and treatment not carried out because of patient's decision for other reasons; Z87.891 Personal history of nicotine dependence
CPT/HCPCS: 36415; 80053; 83605; 85025; 96365; 96375; 99284; J0696; J1885

== ENCOUNTER 2022-11-03 04:35 | Emergency (ER) | payer SELFPAY ==
[2022-11-03 04:43] VITALS: BP 184/104; PULSE 122; RESP 15; TEMP 36.3; O2SAT 98; BMI 35.2
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
[2022-11-03 05:43] VITALS: BP 181/107; PULSE 117; RESP 22; O2SAT 95
== END 2022-11-03 05:50 | disposition home or self-care (01) ==
PROVIDERS: Emergency Provider Emergency Medicine
DX: S01.81XA Laceration without foreign body of other part of head, initial encounter (principal); M54.50 Low back pain, unspecified; R60.0 Localized edema; F11.90 Opioid use, unspecified, uncomplicated; Y04.2XXA Assault by strike against or bumped into by another person, initial encounter
CPT/HCPCS: 12013; 99281; 99283

== ENCOUNTER 2022-12-16 04:02 | Emergency (ER) | payer SELFPAY ==
[2022-12-16 04:09] VITALS: BP 121/104; PULSE 100; RESP 18; TEMP 36.3; O2SAT 98; BMI 37.8
--- NOTE | 2022-12-16 04:09 | DI.RAD.S_ITS ---
PROCEDURE: XR KNEE RT 3V INDICATIONS: fall TECHNIQUE: 3 views of the knee were acquired. COMPARISON: None. FINDINGS: Bones: No fractures or dislocations. No suspicious bony lesions. Tricompartmental osteophytosis. Soft tissues: Moderate joint effusion. No suspicious soft tissue calcifications. IMPRESSION: Moderate knee joint effusion, without displaced fracture. If there remains a high clinical concern, consider cross-sectional imaging. Agree with preliminary report. Dictated by: Benedicto Wilkes M.D. on 12/16/2022 at 7:56 Approved by: Benedicto Wilkes M.D. on 12/16/2022 at 7:56
--- NOTE | 2022-12-16 04:41 | ED_ITS ---
HPI - Extremity Injury (Lower) General Chief Complaint: Extremity Injury, Lower Stated Complaint: RT LEG AND KNEE PAIN Time Seen by Provider: 12/16/22 04:38 Source: patient Mode of arrival: Ambulatory History of Present Illness HPI Narrative: Patient is a 46-year-old male history of heart failure secondary to methamphetamine and opiate abuse presents today with right knee pain. He reports that his knee has been swollen and painful 4 days. He denies any fever or chills. He reports that he was walking into [place] when he tripped on a carpet hurting his knee. He has been walking on it but progressively getting more swollen and painful. No numbness or tingling. Denies any fever chills. Related Data Home Medications Medication Instructions Recorded Confirmed methadone 40 mg soluble tablet 35 mg PO DAILY 05/30/20 09/18/22 Previous Rx's Medication Instructions Recorded fluticasone propionate 50 1 spray intranasal Q12H PRN nasal 07/03/21 mcg/actuation nasal congestion #16 grams spray,suspension (Flonase Allergy Relief) furosemide 20 mg tablet 20 mg PO DAILY #90 tabs 11/03/22 Allergies Allergy/AdvReac Type Severity Reaction Status Date / Time Sulfa (Sulfonamide Allergy Unknown Verified 05/18/22 19:42 Antibiotics) Patient History Medical History Anxiety (Unknown) Degenerative disc disease at L5-S1 level (Unknown) GERD (gastroesophageal reflux disease) (Unknown) 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) Polysubstance use disorder Surgical History H/O hand surgery Family History Family/Other Loud snoring Obesity Hypertension Heart disease Depression Anxiety Alcohol abuse Father Loud snoring Alcohol abuse Substance abuse Mother Loud snoring Sleep apnea Insomnia Obesity Hypertension Heart disease Depression Anxiety Alcohol abuse Substance abuse Family/Other Loud snoring Insomnia Anxiety Depression Alcohol abuse Substance abuse Family/Other Depression Anxiety Alcohol abuse Social History household members: children and friend(s) Smoking Status: Former smoker alcohol intake: current Smoking Status: Former smoker tobacco type: cigarettes alcohol intake frequency: holidays/special occasions only Substance Use Type: heroin, inhalants, IV drugs, methamphetamine and other Exam Initial Vital Signs Initial Vital Signs: Vital Signs Temperature 97.4 F L 12/16/22 04:09 Pulse Rate 100 H 12/16/22 04:09 Respiratory Rate 18 12/16/22 04:09 Blood Pressure 121/104 H 12/16/22 04:09 Pulse Oximetry 98 12/16/22 04:09 Oxygen Delivery Method Room Air 12/16/22 04:09 GENERAL: Well-appearing, well-nourished and in no acute distress. CARDIOVASCULAR: peripheral pulses in tact, cap refill <2 sec RESPIRATORY: No respiratory distress, speaks in full sentences without difficulty EXTREMITIES: Normal is limited Neurovascularly intact. Left lower extremity within normal limits. No pitting edema Right lower extremity right knee is swollen erythema able to flex and extend knee stable limited range of motion secondary to swelling NEUROLOGICAL: Cranial nerves II through XII grossly intact. Normal gait and speech. SKIN: Warm, dry, no petechiae, no rashes or lesions. Course Orders Ordered: ED Orders 12/16/22 04:09 XR knee RT 3V Stat Vital Signs Vital signs: Vital Signs - 8 hr 12/16/22 04:09 Temperature 97.4 F L Pulse Rate 100 H Respiratory Rate 18 Blood Pressure 121/104 H Pulse Oximetry 98 Oxygen Delivery Method Room Air MDM - Extremity Injury (Lower) Imaging Data Extremity x-ray #1: Radiologist's Impression: Mild tricompartment degenerative changes right knee with small suprapatellar joint effusion MDM Narrative Medical decision making narrative: Patient is a 46-year-old male history of polysubstance abuse cardiomyopathy presenting today with knee injury pain and swelling. X-ray shows effusion without fracture. He is given a knee immobilizer and crutches. Tylenol and ibuprofen as needed for pain. Discharge Plan Departure Patient Disposition: Home Clinical Impression: Right knee sprain Instructions: DI for Knee Sprain Activity Restrictions/Additional Instructions: *You have been diagnosed with right knee sprain *What to do: At this time wear knee brace while sleeping and active. May removed temporarily. He is crutches as needed. May require outpatient MRI if you continue to have pain. Elevate and ice as often as possible. *Continue to take medications as directed Motrin 600 mg every 6 hours if needed for [id number] pain 650 every 6 hours if needed for [id number] pain *Follow up with your primary care provider in 2-3 days or call [phone] *Return to ER if you should have increasing pain swelling redness f [or] any new, worsening or concerning symptoms Prescriptions: No Action fluticasone propionate [Flonase Allergy Relief] 50 mcg/actuation spray,suspension 1 spray intranasal Q12H PRN (Reason: nasal congestion) Qty: 16 0RF Rx Instructions: administer into each nostril furosemide 20 mg tablet 20 mg PO DAILY Qty: 90 0RF methadone 40 mg tablet,soluble 35 mg PO DAILY Stand Alone Forms: Patient Portal/API
== END 2022-12-16 04:56 | disposition home or self-care (01) ==
PROVIDERS: Emergency Provider Emergency Medicine
DX: S83.91XA Sprain of unspecified site of right knee, initial encounter (principal); X58.XXXA Exposure to other specified factors, initial encounter
CPT/HCPCS: 73562; 99283

== ENCOUNTER 2024-05-05 18:28 | Emergency (ER) | payer OTHER, SELFPAY ==
[2024-05-05 18:38] VITALS: BP 138/63; PULSE 83; RESP 18; TEMP 36.4; O2SAT 98; BMI 34.3
--- NOTE | 2024-05-05 18:45 | DI.RAD.S_ITS ---
PROCEDURE: XR CHEST 1V INDICATIONS: Shortness of breath TECHNIQUE: One view of the chest was acquired. COMPARISON: [facility], , XR CHEST 1V, 09/18/2022, 2:14. [facility], CR, XR CHEST 1V, 07/13/2022, 0:56. FINDINGS: Surgical changes and devices: None. Lungs and pleura: Lungs are clear. No pleural effusions or pneumothorax. Mediastinum: Mediastinal contours appear normal. Heart size is normal. Bones and chest wall: No suspicious bony lesions. Overlying soft tissues appear unremarkable. IMPRESSION: No acute cardiopulmonary abnormality is seen. Approved by: Jesus Shah M.D. on 05/05/2024 at 19:37
--- NOTE | 2024-05-05 18:45 | EKG_ITS ---
[address] [address] Test Date: 2024-05-05 Pat Name: Paulino Keyes Department: Room: Gender: Male [employer]: TRINH : 1975 Requested By: Order Number: [id number] Reading MD: Ollie Bishop MD Measurements Intervals [place] Rate: 85 P: 63 MN: 158 QRS: 31 QRSD: 78 T: 52 QT: 382 QTc: 454 Interpretive Statements Normal sinus rhythm Electronically Signed On 05-06-2024 6:42:23 PDT by Ollie Bishop MD
[2024-05-05 19:05] VITALS: PULSE 85; O2SAT 97
[2024-05-05 19:07] VITALS: BP 115/59; PULSE 82; RESP 13; O2SAT 97
[2024-05-05 19:13] LABS: Add Manual Diff / Slide Review NO; Basophils Absolute Auto 0 /uL (0-100); Basophils Percent Auto 0.7 % (0-2); Eosinophils Absolute Auto 200 /uL (0-450); Eosinophils Percent Auto 3.9 % (2-4); Hematocrit 39.2 % (41-53); Hemoglobin 13.4 g/dL (13.5-17.5); Lymphocytes Absolute Auto 1200 /uL (1100-4500); Lymphocytes Percent Auto 20.4 % (25-40); Mean Corpuscular HGB Conc 34.3 % (30-36); Mean Corpuscular Hemoglobin 29.3 PG (26-34); Mean Corpuscular Volume 85.4 fL (80-100); Monocytes Absolute Auto 500 /uL (0-900); Neutrophils Absolute Auto 3900 /uL (1500-7000); Platelet Count 230 X10^3/uL (150-400); Red Blood Cell Count 4.59 X10^6/uL (4.5-5.9); Red Cell Distribution Width 14.6 % (11.6-14.8); White Blood Cell Count 5.9 X10^3/uL (4.5-11.0)
[2024-05-05 19:22] LABS: Prothrombin Time 10.9 SECONDS (9.4-12.5)
[2024-05-05 19:26] LABS: Lactate (Lactic Acid) 1.5 mmol/L (0.7-2.1)
[2024-05-05 19:28] LABS: Alanine Aminotransferase 29 IU/L (<50); Albumin 4.6 g/dL (3.5-5.0); Albumin Globulin Ratio 1.6 (1.0-2.8); Alkaline Phosphatase 76 U/L (38-126); Aspartate Aminotransferase 39 IU/L (17-59); BUN Creatinine Ratio 19.8 (6-22); Bilirubin Total 0.6 mg/dL (0.2-1.3); Blood Urea Nitrogen 20 mg/dL (9-20); Calcium 9.1 mg/dL (8.4-10.2); Carbon Dioxide 25 mmol/L (22-32); Chloride 106 mmol/L (98-107); Estimated Glomerular Filt Rate > 60 mL/min (>60); Globulin 2.9 g/dL (1.7-4.1); Glucose 119 mg/dL (70-100); HEMOLYSIS < 15 (0-50); Potassium 3.9 mmol/L (3.4-5.1); Sodium 141 mmol/L (137-145); Total Protein 7.5 g/dL (6.3-8.2)
[2024-05-05 19:30] VITALS: BP 123/72; PULSE 82; RESP 21; O2SAT 95
[2024-05-05 19:38] LABS: NT-proBNP (BNP-Adult 18+) 31 pg/mL (<125); Troponin I < 0.012 ng/mL (0.01-0.034)
[2024-05-05 19:48] LABS: Influenza A - CEPHEID Flu A NEGATIVE (NEGATIVE); Influenza B - CEPHEID Flu B NEGATIVE (NEGATIVE); Respiratory Syncytial Virus POSITIVE (Negative)
[2024-05-05 20:00] VITALS: BP 137/76; PULSE 84; RESP 25; O2SAT 93
[2024-05-05 20:01] LABS: COVID-19 CEPHEID 4-PLEX PCR Negative (Negative)
--- NOTE | 2024-05-05 20:18 | ED.SOB ---
HPI - SOB/Dyspnea General Chief Complaint: Shortness of Breath/Dyspnea Stated Complaint: thinks he has pneumonia Time Seen by Provider: 05/05/24 20:18 Source: patient Mode of arrival: Ambulatory Limitations: no limitations History of Present Illness HPI Narrative: Patient is a 48-year-old male with a past medical history of polysubstance abuse, MRSA infection, IV drug abuse, comes into the ED from home for evaluation of cough shortness of breath ongoing persistent for the past few days. He states that he has a history of walking pneumonia and is worried that this is the issue. He states he was recently released from [facility] on the of this month, he denies any other symptoms such as headache visual disturbances fever chills nausea vomiting abdominal pain or any other GI/ symptoms at this time. Related Data Home Medications Medication Instructions Recorded Confirmed methadone 40 mg soluble tablet 35 mg PO DAILY 05/30/20 09/18/22 Previous Rx's Medication Instructions Recorded fluticasone propionate 50 1 spray intranasal Q12H PRN nasal 07/03/21 mcg/actuation nasal congestion #16 grams spray,suspension (Flonase Allergy Relief) furosemide 20 mg tablet 20 mg PO DAILY #90 tabs 11/03/22 azithromycin 250 mg tablet 250 mg PO DAILY 4 days #4 tabs 05/05/24 methylprednisolone 4 mg tablets in See Rx Instructions PO .COMPLEX 05/05/24 a dose pack (Medrol (Kaden)) #21 ea Allergies Allergy/AdvReac Type Severity Reaction Status Date / Time Sulfa (Sulfonamide Allergy Unknown Verified 05/18/22 19:42 Antibiotics) Review of Systems Review of Systems Narrative: General: Denies fever, chills, weight loss HEENT: Denies headache, eye drainage, eye irritation, head trauma, sore throat, voice change Cardiovascular: Denies any chest pain, palpitations, tachycardia Respiratory: Positive shortness of breath, cough, denies wheeze, stridor GI/: Denies any abdominal pain, nausea, vomiting, diarrhea, bright red blood per rectum, melanotic stools, urinary frequency, urinary retention, dysuria, hematuria MSK: Denies any joint pain, muscle pains, swelling Skin: Denies any rashes, lesions, discoloration Neuro: Denies any headache, lightheadedness, dizziness, fainting, weakness Psych: Denies SI/HI Patient History Medical History Anxiety (Unknown) Degenerative disc disease at L5-S1 level (Unknown) GERD (gastroesophageal reflux disease) (Unknown) 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) Polysubstance use disorder Surgical History H/O hand surgery Family History Family/Other Loud snoring Obesity Hypertension Heart disease Depression Anxiety Alcohol abuse Father Loud snoring Alcohol abuse Substance abuse Mother Loud snoring Sleep apnea Insomnia Obesity Hypertension Heart disease Depression Anxiety Alcohol abuse Substance abuse Family/Other Loud snoring Insomnia Anxiety Depression Alcohol abuse Substance abuse Family/Other Depression Anxiety Alcohol abuse Social History household members: children and friend(s) Smoking Status: Former smoker alcohol intake: current Smoking Status: Former smoker tobacco type: cigarettes alcohol intake frequency: holidays/special occasions only Exam Narrative Exam Narrative: General: Cooperative, comfortable, well-developed, not in acute distress HEENT: Normocephalic, atraumatic, PERRLA, normal sclera, eyelids normal, Neck: Active full range of motion, atraumatic Chest: Normal to inspection, negative crepitus, no overlying erythema ecchymosis Respiratory: Patient coughing on exam, Normal respiratory effort, not in acute respiratory distress, clear to auscultation bilaterally negative, wheeze, tachypnea, rhonchi, rales Cardiology: Regular rate rhythm negative gallop, murmur, rubs GI/: Normal to inspection, soft, nonrigid, no tenderness to palpation, exam deferred MSK: Full range of active range of motion of all 4 extremities, atraumatic Skin: No rashes lesions noted Neuro: Alert awake oriented x3, moves all 4 extremities spontaneously, cranial nerves intact, able to answer all questions appropriately follows commands appropriately Psych: Cooperative, negative suicidal or homicidal ideations Initial Vital Signs Initial Vital Signs: Vital Signs Temperature 97.6 F 05/05/24 18:38 Pulse Rate 83 05/05/24 18:38 Respiratory Rate 18 05/05/24 18:38 Blood Pressure 138/63 05/05/24 18:38 Pulse Oximetry 98 05/05/24 18:38 Oxygen Delivery Method Room Air 05/05/24 18:38 Course Orders Ordered: Discontinued Medications Azithromycin (Azithromycin 250 Mg Tablet) 500 mg PO NOW ONE Stop: 05/05/24 20:26 Last Admin: 05/05/24 20:44 Dose: 500 mg Documented By: LEIA Vital Signs Vital signs: Vital Signs - 8 hr 05/05/24 18:38 Temperature 97.6 F Pulse Rate 83 Respiratory Rate 18 Blood Pressure 138/63 Pulse Oximetry 98 Oxygen Delivery Method Room Air MDM - SOB/Dyspnea Differential Diagnosis Differential diagnosis: Likely community acquired pneumonia and other (ACS, pneumonia, electrolyte abnormality, COVID, flu, RSV) Lab Data 05/05/24 18:54 05/05/24 18:54 Labs: Lab Results 05/05/24 Range/Units 18:54 WBC 5.9 (4.5-11.0) X10^3/uL RBC 4.59 (4.5-5.9) X10^6/uL Hgb 13.4 L (13.5-17.5) g/dL Hct 39.2 L (41-53) % MCV 85.4 (80-100) fL MCH 29.3 (26-34) PG MCHC 34.3 (30-36) % RDW 14.6 (11.6-14.8) % Plt Count 230 (150-400) X10^3/uL Neut % (Auto) 66.0 (50-75) % Lymph % (Auto) 20.4 L (25-40) % Iron % (Auto) 9.0 (3-14) % Eos % (Auto) 3.9 (2-4) % Baso % (Auto) 0.7 (0-2) % Neut # (Auto) 3900 (5826-3992) /uL Lymph # (Auto) 1200 (2627-7255) /uL Iron # (Auto) 500 (0-900) /uL Eos # (Auto) 200 (0-450) /uL Baso # (Auto) 0 (0-100) /uL PT 10.9 (9.4-12.5) SECONDS INR 1.0 (0.9-1.3) Sodium 141 (137-145) mmol/L Potassium 3.9 (3.4-5.1) mmol/L Chloride 106 (98-107) mmol/L Carbon Dioxide 25 (22-32) mmol/L BUN 20 (9-20) mg/dL Creatinine 1.01 (0.66-1.25) mg/dL Estimated GFR > 60 (>60) mL/min BUN/Creatinine Ratio 19.8 (6-22) Glucose 119 H (70-100) mg/dL Lactate 1.5 (0.7-2.1) mmol/L Calcium 9.1 (8.4-10.2) mg/dL Total Bilirubin 0.6 (0.2-1.3) mg/dL AST 39 (17-59) IU/L ALT 29 (<50) IU/L Alkaline Phosphatase 76 (38-126) U/L Troponin I < 0.012 (0.01-0.034) ng/mL NT-Pro-B Natriuret Pep 31 (<125) pg/mL Total Protein 7.5 (6.3-8.2) g/dL Albumin 4.6 (3.5-5.0) g/dL Globulin 2.9 (1.7-4.1) g/dL Albumin/Globulin Ratio 1.6 (1.0-2.8) SARS-CoV-2 (PCR) Negative (Negative) Influenza A (RT-PCR) Flu a negative (NEGATIVE) Influenza B (RT-PCR) Flu b negative (NEGATIVE) RSV (PCR) Positive A (Negative) Urine Dip Bedside Urine Glucose Negative Bedside Urine Bilirubin - Negative Bedside Urine Ketone - Negative Urine Specific Ute 1.020 Bedside Urine Occult Blood - Negative Bedside Urine pH 6.0 Bedside Urine Protein - Negative Bedside Urine Urobilinogen - Negative Bedside Urine Nitrite - Negative Bedside Urine Leukocytes - Negative Esterase Imaging Data Chest x-ray: Radiologist's Impression: [address] [address] XRay Report Signed Patient: Paulino Keyes MR#: [id number] : 1975 Acct:[id number] Age/Sex: 48 / M Date of Service: 05/05/24 Loc: ED Accession Number: [id number] Procedure: XR chest 1V Ordering Provider: Favian Boyle D.O. PROCEDURE: XR CHEST 1V INDICATIONS: Shortness of breath TECHNIQUE: One view of the chest was acquired. COMPARISON: [facility], CR, XR CHEST 1V, 09/18/2022, 2:14. [facility], CR, XR CHEST 1V, 07/13/2022, 0:56. FINDINGS: Surgical changes and devices: None. Lungs and pleura: Lungs are clear. No pleural effusions or pneumothorax. Mediastinum: Mediastinal contours appear normal. Heart size is normal. Bones and chest wall: No suspicious bony lesions. Overlying soft tissues appear unremarkable. IMPRESSION: No acute cardiopulmonary abnormality is seen. ECG Data Interpretation: EKG interpreted by ED physician sinus 85 beats per minute QTC [address] changes no STEMI MDM Narrative Medical decision making narrative: Patient is a 48-year-old male with a past medical history polysubstance abuse, MRSA infection, IV drug abuse presenting in the emergency department for cough shortness of breath ongoing for the past few days. He is days he has a history of walking pneumonia therefore was worried and wanted to be evaluated in the emergency department. Patient not requiring any supplemental oxygen. He states that he was also recently released from [facility] on the of this month. Patient had EKG without any ischemic changes troponin negative, BNP 31, chest x-ray did not show any acute cardiopulmonary abnormalities, to note patient was positive for RSV however given patient with high risk of pneumonia will treat for atypical pneumonia with azithromycin. Patient was given strict return precautions he verbalized understanding of this and agrees to being discharged home with outpatient follow up Discharge Plan Departure Patient Disposition: Home Clinical Impression: Acute URI due to respiratory syncytial virus (RSV) Instructions: DI for Pneumonia -- Adult Activity Restrictions/Additional Instructions: Please follow up with your primary care doctor Please read the discharge instructions sheet carefully and bring all papers to all doctor follow-up visits, as it may contain information that your doctor may want to see. Disease processes change and evolve, if your symptoms worsen or if you develop any new symptoms that are concerning to you please return for evaluation. Your evaluation today does not show any evidence of any life-threatening/serious illnesses requiring admission to the hospital or surgery. Please follow-up with your doctor for re-evaluation in approximately 1 day. Seek immediate medical attention for any worrisome symptoms. *If you do not have a primary care provider please contact the [facility] Resource line at [phone]. They will ask some questions about your medical history and help get you set up with a doctor in the community. Prescriptions: New azithromycin 250 mg tablet 250 mg PO DAILY 4 Days Qty: 4 0RF methylprednisolone [Medrol (Kaden)] 4 mg tablets,dose pack See Rx Instructions .ROUTE .COMPLEX Qty: 21 0RF Rx Instructions: for 6 days No Action fluticasone propionate [Flonase Allergy Relief] 50 mcg/actuation spray,suspension 1 spray intranasal Q12H PRN (Reason: nasal congestion) Qty: 16 0RF Rx Instructions: administer into each nostril furosemide 20 mg tablet 20 mg PO DAILY Qty: 90 0RF methadone 40 mg tablet,soluble 35 mg PO DAILY Referrals: Joy Denise DO [Primary Care Provider] - Stand Alone Forms: Patient Portal/API/Survey
[2024-05-05 20:30] VITALS: BP 122/76; PULSE 78; RESP 20; O2SAT 93
[2024-05-05] MEDS: AZITHROMYCIN 250 MG TABLET 500 MG PO (20:44)
== END 2024-05-05 20:52 | disposition home or self-care (01) ==
PROVIDERS: Emergency Provider Student in an Organized Health Care Education/Training Program; PCP Family Medicine
DX: J06.9 Acute upper respiratory infection, unspecified (principal); B97.4 Respiratory syncytial virus as the cause of diseases classified elsewhere; R06.02 Shortness of breath; Z87.891 Personal history of nicotine dependence
CPT/HCPCS: 87635; 87400 ×2; 87420; 0241U; 36415; 71045; 80053; 81003; 83605; 83880; 84484; 85025; 85610; 93005; 99283; 99284

== ENCOUNTER 2024-05-09 03:56 | Emergency (ER) | payer OTHER, SELFPAY ==
[2024-05-09] VITALS (11 sets, daily range): BP systolic 108–141; BP diastolic 54–75; PULSE 76–100; RESP 19–20; TEMP 37; O2SAT 90–96; BMI 34.3
[2024-05-09] MEDS: ALBUTEROL/IPRATROPIUM 3 ML AMPUL 6 ML INH (04:23)
--- NOTE | 2024-05-09 04:33 | ED.SOB ---
HPI - SOB/Dyspnea General Chief Complaint: Shortness of Breath/Dyspnea Stated Complaint: SOB Time Seen by Provider: 05/09/24 04:32 Source: patient, RN notes reviewed and old records reviewed Mode of arrival: Ambulatory Limitations: no limitations History of Present Illness HPI Narrative: 48-year-old male history of polysubstance abuse, IV drug abuse diagnosed with RSV but had suspected atypical pneumonia so was prescribed Medrol Dosepak as well as azithromycin. Patient notes he has been taking incorrectly only taking 1 or 2 of the tablets rather than 6 tablets the 1st day followed by 5 tablets following day, etcetera. He has had 6 tablets from the pack total. Patient has completed his antibiotics. Patient states he was not really been improving. Has not had any persistent fevers. Still has some congestion. Feels like he has chest congestion. Feels a little bit tight still. No nausea or vomiting. No GI or urinary symptoms. No swelling in his extremities. He has not albuterol inhaler but not spacer. He has a nebulizer but does not have medication vials for it. Patient returns tinnitus he feels he was not improving. Related Data Home Medications Medication Instructions Recorded Confirmed methadone 40 mg soluble tablet 35 mg PO DAILY 05/30/20 05/09/24 Previous Rx's Medication Instructions Recorded fluticasone propionate 50 1 spray intranasal Q12H PRN nasal 07/03/21 mcg/actuation nasal congestion #16 grams spray,suspension (Flonase Allergy Relief) furosemide 20 mg tablet 20 mg PO DAILY #90 tabs 11/03/22 methylprednisolone 4 mg tablets in See Rx Instructions PO .COMPLEX 05/05/24 a dose pack (Medrol (Kaden)) #21 ea albuterol sulfate 2.5 mg/3 mL 2.5 mg (3 mL) inhalation Q4-6H PRN 05/09/24 (0.083 %) solution for nebulization shortness of breath or wheezing #75 mL Allergies Allergy/AdvReac Type Severity Reaction Status Date / Time Sulfa (Sulfonamide Allergy Unknown Verified 05/18/22 19:42 Antibiotics) Review of Systems Review of Systems ROS Unobtainable: All systems reviewed & are unremarkable except as noted in HPI and below Patient History Medical History Polysubstance use disorder Anxiety (Unknown) GERD (gastroesophageal reflux disease) (Unknown) Degenerative disc disease at L5-S1 level (Unknown) 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) Surgical History H/O hand surgery Family History Family/Other Loud snoring Obesity Hypertension Heart disease Depression Anxiety Alcohol abuse Father Loud snoring Alcohol abuse Substance abuse Mother Loud snoring Sleep apnea Insomnia Obesity Hypertension Heart disease Depression Anxiety Alcohol abuse Substance abuse Family/Other Loud snoring Insomnia Anxiety Depression Alcohol abuse Substance abuse Family/Other Depression Anxiety Alcohol abuse Social History household members: children and friend(s) Smoking Status: Former smoker alcohol intake: current Smoking Status: Former smoker tobacco type: cigarettes alcohol intake frequency: holidays/special occasions only Exam Narrative Exam Narrative: GENERAL: Alert and oriented x three, male in mild distress HEENT: Head normocephalic, atraumatic, EOMI, pupils reactive, face symmetric, moist mucous membranes NECK: Supple, full range of motion CARDIOVASCULAR: Regular rate and rhythm without murmurs, rubs or gallops. RESPIRATORY: Breath sounds equal bilaterally, patient has mild expiratory wheezes, no rhonchi. No rales. I. No tachypnea, no accessory muscle use. Speaks in full sentences. ABDOMEN: Soft, nontender. Normoactive bowel sounds all 4 quadrants. No guarding or rebound, rigidity, no mass : No CVA tenderness EXTREMITIES: Normal range of motion, no clubbing or edema. Neurovascularly intact NEUROLOGICAL: Cranial nerves II through XII grossly intact. Moving all extremities SKIN: Warm, dry, no petechiae, no rashes or lesions. Initial Vital Signs Initial Vital Signs: Vital Signs Temperature 98.6 F 05/09/24 04:02 Pulse Rate 100 H 05/09/24 04:02 Respiratory Rate 19 05/09/24 04:02 Blood Pressure 137/72 05/09/24 04:02 Pulse Oximetry 96 05/09/24 04:02 Oxygen Delivery Method Room Air 05/09/24 04:02 Course Orders Ordered: Discontinued Medications Albuterol/Ipratropium (Albuterol/Ipratropium 3 Ml Ampul) 6 ml INH NOW ONE Stop: 05/09/24 04:19 Last Admin: 05/09/24 04:23 Dose: 6 ml Documented By: KASSY Prednisone (Prednisone 20 Mg Tablet) 60 mg PO NOW ONE Stop: 05/09/24 04:40 Last Admin: 05/09/24 05:06 Dose: 60 mg Documented By: TRINH Vital Signs Vital signs: Vital Signs - 8 hr 05/09/24 04:02 05/09/24 04:11 05/09/24 04:12 Temperature 98.6 F Pulse Rate 100 H 99 H Respiratory Rate 19 Blood Pressure 137/72 129/75 Pulse Oximetry 96 96 Oxygen Delivery Method Room Air Oxygen Flow Rate Fraction of Inspired Oxygen 05/09/24 04:12 05/09/24 04:23 05/09/24 04:30 Temperature Pulse Rate 97 H 91 H Respiratory Rate 20 Blood Pressure 112/59 L Pulse Oximetry 96 94 Oxygen Delivery Method Room Air Oxygen Flow Rate 0 Fraction of Inspired Oxygen 21 05/09/24 04:30 05/09/24 05:00 05/09/24 05:00 Temperature Pulse Rate 88 95 H Respiratory Rate Blood Pressure 141/60 H Pulse Oximetry 96 90 L Oxygen Delivery Method Oxygen Flow Rate Fraction of Inspired Oxygen MDM - SOB/Dyspnea MDM Narrative Medical decision making narrative: 48-year-old male diagnosed with RSV on05/05/24, was covid and influenza negative. Has a history of asthma/reactive airway had DuoNeb here which was helpful he was less wheezy on rechecked. Patient was treated with the azithromycin for possible atypical infection but patient realize that he has been taking his Medrol Dosepak incorrectly maybe part of the reason he was not improving. Vitals here are appropriate. Patient did have cardiac workup with negative troponin and BNP negative chest x-ray on 05/05/24 Chest x-ray shows no acute change. Patient was given prednisone 60 mg, received a DuoNeb. We will have patient complete his Medrol Dosepak but now taking his pills as prescribed. Patient was provided a spacer. On rechecked patient's wheeze has resolved. He was still persistent dry cough. Discharge Plan Departure Patient Disposition: Home Clinical Impression: RSV infection, Bronchitis Activity Restrictions/Additional Instructions: Follow up for recheck if you are not improving over the next 2-3 days. Take steroids from the prepack as prescribed. Prescription for albuterol vials was sent you can use this with your nebulizer. You can use 1-2 vials every 4-6 hours as needed. Use of the spacer provided with your albuterol inhaler. Please return if you are rapidly worsening having new chest pain, passing out, persistent vomiting, new swelling of your extremities or other new or concerning changes. Prescriptions: New albuterol sulfate 2.5 mg /3 mL (0.083 %) solution for nebulization 2.5 mg inhalation Q4-6H PRN (Reason: shortness of breath or wheezing) Qty: 75 0RF No Action fluticasone propionate [Flonase Allergy Relief] 50 mcg/actuation spray,suspension 1 spray intranasal Q12H PRN (Reason: nasal congestion) Qty: 16 0RF Rx Instructions: administer into each nostril furosemide 20 mg tablet 20 mg PO DAILY Qty: 90 0RF methadone 40 mg tablet,soluble 35 mg PO DAILY methylprednisolone [Medrol (Kaden)] 4 mg tablets,dose pack See Rx Instructions .ROUTE .COMPLEX Qty: 21 0RF Rx Instructions: for 6 days Referrals: Joy Denise DO [Primary Care Provider] - Stand Alone Forms: Patient Portal/API/Survey
--- NOTE | 2024-05-09 04:39 | DI.RAD.S_ITS ---
PROCEDURE: XR CHEST 2V INDICATIONS: cough, sob, not improving, +rsv TECHNIQUE: 2 views of the chest were acquired. COMPARISON: [facility], CR, XR CHEST 1V, 05/05/2024, 19:10. [facility], CR, XR CHEST 1V, 09/18/2022, 2:14. FINDINGS: Surgical changes and devices: None. Lungs and pleura: No consolidation. No pleural effusions or pneumothorax. Mediastinum: Mediastinal contours are normal. Heart size is normal. Bones and chest wall: No suspicious bony abnormalities. Soft tissues appear unremarkable. IMPRESSION: No consolidation to suggest lobar pneumonia. This report is concordant with the overnight preliminary interpretation. Dictated by: Mikey Strickland M.D. on 05/09/2024 at 7:18 Approved by: Mikey Strickland M.D. on 05/09/2024 at 7:19
[2024-05-09] MEDS: predniSONE 20 MG TABLET 60 MG PO (05:06)
== END 2024-05-09 07:22 | disposition home or self-care (01) ==
PROVIDERS: Emergency Provider Emergency Medicine; PCP Family Medicine
DX: J20.5 Acute bronchitis due to respiratory syncytial virus (principal); Z87.891 Personal history of nicotine dependence
CPT/HCPCS: 71046; 94640; 99283

== ENCOUNTER → 2024-05-12 15:14 | Outpatient (CLI) | payer OTHER, SELFPAY ==
--- NOTE | 2024-05-12 15:15 | DI.MRI.S_ITS ---
PROCEDURE: MR THORACIC SPINE WO CON INDICATIONS: BILAT CLAUDICATION LOWER LIMB TECHNIQUE: Noncontrast sagittal T1 spine echo and T2 fast spin echo, sagittal STIR, and T2 fast spin echo through the thoracic spine. COMPARISON: None. FINDINGS: Image quality: Excellent Alignment of thoracic spine is anatomic. Mild superior endplate fragility fracture T7, chronic. No acute compression fracture of the thoracic spine. Multilevel disc desiccation and disc bulge. Thoracic cord signal: Unremarkable Central canal stenosis: None. Right neural foraminal stenosis: None. Left neural foraminal stenosis: None. Other soft tissue findings: Visualized thoracic aorta is unremarkable. IMPRESSION: 1. Chronic mild superior endplate fragility fracture of T7. 2. No central canal or neural foraminal stenosis in the thoracic spine. Dictated by: Fay Donaldson M.D. on 05/12/2024 at 16:55 Approved by: Fay Donaldson M.D. on 05/12/2024 at 17:05
--- NOTE | 2024-05-12 15:15 | DI.MRI.S_ITS ---
PROCEDURE: MR CERVICAL SPINE WO CON INDICATIONS: BILAT CLAUDICATION LOWER LIMB TECHNIQUE: Noncontrast sagittal T1 spin echo and T2 fast spin echo, sagittal STIR, foraminal oblique sagittal T2 fast spin echo, and axial gradient echo or T2 fast spin echo through the cervical spine. COMPARISON: None. FINDINGS: Image quality: Somewhat limited evaluation given patient motion. Straightening of the cervical spine. Mild anterolisthesis of C5 on C6. Vertebral body height of cervical spine are well maintained. Marrow signal of cervical spine is normal for age. Multilevel disc bulge and disc desiccation. Cervical cord signal: Unremarkable Axial images: C2-3: Mild disc bulge. Mild central canal stenosis. Mild right facet arthropathy. No neural foraminal stenosis. C3-4: Posterior disc osteophyte complex. Mild central canal stenosis. Mild bilateral facet arthropathy. No neural foraminal stenosis. C4-5: Posterior disc osteophyte complex. Mild central canal stenosis. Mild bilateral facet arthropathy. No neural foraminal stenosis. C5-6: Posterior disc osteophyte complex. Mild right uncovertebral arthropathy. Mild central canal stenosis. No neural foraminal stenosis. C6-7: Posterior disc osteophyte complex, asymmetric to the right. Mild central canal stenosis. No neural foraminal stenosis. C7-T1: Posterior disc osteophyte complex, asymmetric to the right. No central canal or neural foraminal stenosis. T1-2: Unremarkable Other soft tissue findings: Unremarkable IMPRESSION: 1. Multilevel degenerative changes of cervical spine, with multilevel mild central canal stenosis. 2. No neural foraminal stenosis of the cervical spine. Dictated by: Fay Donaldson M.D. on 05/12/2024 at 16:40 Approved by: Fay Donaldson M.D. on 05/12/2024 at 16:54
== END ==
PROVIDERS: PCP Family Medicine; Referring Provider Family Medicine; Visit Provider Family Medicine
DX: I73.9 Peripheral vascular disease, unspecified (principal); M80.08XA Age-related osteoporosis with current pathological fracture, vertebra(e), initial encounter for fracture; M47.812 Spondylosis without myelopathy or radiculopathy, cervical region; M48.02 Spinal stenosis, cervical region
CPT/HCPCS: 72141; 72146

== ENCOUNTER → 2024-05-15 10:51 | Outpatient (CLI) | payer OTHER, SELFPAY ==
--- NOTE | 2024-05-15 10:53 | DI.MRI.S_ITS ---
PROCEDURE: MR KNEE RT WO CON INDICATIONS: PARTIAL TEAR ANT CRUCIATE LIG,SPONDYLOSIS LUMBAR TECHNIQUE: Noncontrast sagittal PD fast spin echo and T2 fast spin echo with fat saturation, sagittal 3-D FLASH with fat saturation; coronal T1 spin echo and PD fast spin echo with fat saturation, and axial PD fast spin echo with fat saturation through the knee. COMPARISON: [facility], CR, XR KNEE ARTHRITIC SERIES RT, 07/17/2023, 9:41. [facility], MR, MR KNEE RIGHT WITHOUT CONTRAST, 05/06/2023, 16:30. FINDINGS: Image quality: Excellent. Bones: Mild marrow edema is present at the central tibial plateau (11/14) as well as the nonweightbearing lateral femoral condyle (11/8). The bone marrow signal is otherwise normal. There is no acute fracture or dislocation. Joints: There is a small knee joint effusion. There is moderate knee osteoarthritis. Winston's cyst: None. Menisci: There is a complex tear of the posterior horn of the medial meniscus (14/22; 11/22) along with high-grade tearing of the superior popliteomeniscal fascicle. There is complex tearing of the body and posterior horn of the lateral meniscus with horizontal and radial components (14/14-20). The posterior root attachments are normal. There is no significant meniscal body extrusion. Cruciate ligaments: The anterior cruciate ligament is normal. The posterior cruciate ligament is normal. Collateral ligaments: There is low signal thickening of the tibial collateral ligament. The medial collateral ligament complex is otherwise normal. The lateral collateral ligament complex is normal. Popliteus Muscle/Tendon: The popliteus muscle and tendon are normal. Extensor mechanism: There is mild low signal thickening of the quadriceps tendon. There is mild low signal thickening of the patellar tendon. The medial and lateral patellar retinacular attachments are normal. Articular cartilage: Mild surface fibrillation is present at the anterior weight-bearing lateral and patellar compartments (14/15; 9/12). Full-thickness cartilage loss is present at the nonweightbearing lateral femoral condyle (11/10). Other: Mild infrapatellar subcutaneous edema. IMPRESSION: 1. Complex tear of the posterior horn of the medial meniscus with high-grade tearing of the superior fibers of the posterior joint capsule. 2. Complex tear of the body and posterior horn of the lateral meniscus. 3. Chronic MCL sprain. 4. Mild chronic quadriceps and patellar tendinosis. 5. Moderate knee osteoarthritis with a small joint effusion, reactive marrow edema, and associated articular cartilage defects. Dictated by: Remington St M.D. on 05/16/2024 at 15:36 Approved by: Remington St M.D. on 05/16/2024 at 15:46
== END ==
LOC: MRI 10:51
PROVIDERS: PCP Family Medicine; Referring Provider Family Medicine; Visit Provider Family Medicine
DX: S83.231A Complex tear of medial meniscus, current injury, right knee, initial encounter (principal); S83.281A Other tear of lateral meniscus, current injury, right knee, initial encounter; S83.411A Sprain of medial collateral ligament of right knee, initial encounter; S83.519A Sprain of anterior cruciate ligament of unspecified knee, initial encounter; M17.11 Unilateral primary osteoarthritis, right knee; M25.461 Effusion, right knee
CPT/HCPCS: 73721

== ENCOUNTER 2024-05-17 09:19 | Emergency (ER) | payer OTHER, SELFPAY ==
[2024-05-17 09:20] VITALS: BP 134/69; PULSE 84; RESP 14; TEMP 37; O2SAT 96; BMI 34.7
--- NOTE | 2024-05-17 10:03 | ED.ABDPAIN ---
HPI - Abdominal Pain General Chief Complaint: Abdominal Pain Stated Complaint: Stomach pain Time Seen by Provider: 05/17/24 09:45 Source: patient Mode of arrival: Ambulatory History of Present Illness HPI narrative: 48-year-old male history of polysubstance abuse including fentanyl currently on methadone recently just got out of [place] [facility] reports having abdominal pain when he has when he feels constipated and the on the left side of his belly the pain radiates to the back. This has been going on for a few years now he reports getting constipation medicines while in [place] [facility] for 60 days but the powder Medication has not worked well for his constipation. He is scheduled for his colonoscopy but never went through with it. Other than what is stated 14 point review of system is negative. Related Data Home Medications Medication Instructions Recorded Confirmed methadone 40 mg soluble tablet 35 mg PO DAILY 05/30/20 05/09/24 Previous Rx's Medication Instructions Recorded fluticasone propionate 50 1 spray intranasal Q12H PRN nasal 07/03/21 mcg/actuation nasal congestion #16 grams spray,suspension (Flonase Allergy Relief) furosemide 20 mg tablet 20 mg PO DAILY #90 tabs 11/03/22 methylprednisolone 4 mg tablets in See Rx Instructions PO .COMPLEX 05/05/24 a dose pack (Medrol (Kaden)) #21 ea albuterol sulfate 2.5 mg/3 mL 2.5 mg (3 mL) inhalation Q4-6H PRN 05/09/24 (0.083 %) solution for nebulization shortness of breath or wheezing #75 mL dicyclomine 20 mg tablet 20 mg PO TID #60 tabs 05/17/24 sennosides 8.6 mg-docusate sodium 1 tab-cap PO BEDTIME PRN 05/17/24 50 mg capsule (Senna Plus) constipation #30 caps Allergies Allergy/AdvReac Type Severity Reaction Status Date / Time Sulfa (Sulfonamide Allergy Unknown Verified 05/17/24 09:29 Antibiotics) Review of Systems Review of Systems ROS Unobtainable: All systems reviewed & are unremarkable except as noted in HPI and below Patient History Medical History Polysubstance use disorder Anxiety (Unknown) GERD (gastroesophageal reflux disease) (Unknown) Degenerative disc disease at L5-S1 level (Unknown) 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) Surgical History H/O hand surgery Family History Family/Other Loud snoring Obesity Hypertension Heart disease Depression Anxiety Alcohol abuse Father Loud snoring Alcohol abuse Substance abuse Mother Loud snoring Sleep apnea Insomnia Obesity Hypertension Heart disease Depression Anxiety Alcohol abuse Substance abuse Family/Other Loud snoring Insomnia Anxiety Depression Alcohol abuse Substance abuse Family/Other Depression Anxiety Alcohol abuse Social History household members: children and friend(s) alcohol intake: current Smoking Status: Former smoker tobacco type: cigarettes alcohol intake frequency: holidays/special occasions only Exam Narrative Exam Narrative: GENERAL: [48] year old patient appears stated age. Well-developed patient, in mild distress. HEAD: Atraumatic. Normocephalic. EYES: Pupils equal round and reactive. Extraocular motions intact. No scleral icterus. No injection or drainage. ENT: Nose without bleeding, purulent drainage. Throat without erythema, tonsillar hypertrophy or exudate. Airway patent. NECK: Trachea midline. Non tender CARDIOVASCULAR: Regular rate and rhythm without murmurs, gallops, or rubs. RESPIRATORY: Clear to auscultation. Breath sounds equal bilaterally. No wheezes, rales, or rhonchi. GASTROINTESTINAL: Abdomen soft, tender LLQ but no r/r/g/, nondistended. EXTREMITIES: No edema or joint tenderness. BACK: Nontender without deformity or crepitance. No flank tenderness. NEURO: AOx3. SKIN: No rash or erythema of visible areas Initial Vital Signs Initial Vital Signs: Vital Signs Temperature 98.6 F 05/17/24 09:20 Pulse Rate 84 05/17/24 09:20 Respiratory Rate 14 05/17/24 09:20 Blood Pressure 134/69 05/17/24 09:20 Pulse Oximetry 96 05/17/24 09:20 Oxygen Delivery Method Room Air 05/17/24 09:20 Course Orders Ordered: ED Orders 05/17/24 11:00 Complete Blood Count AUTO DIFF Stat Comprehensive Metabolic Panel Stat Lipase Stat 05/17/24 11:45 CT abdomen pelvis wo con Stat Ondansetron HCl (Ondansetron 4 Mg/2 Ml Inj) 4 mg IV NOW PRN PRN Reason: Nausea And Vomiting Ondansetron HCl (Ondansetron 4 Mg Odt) 4 mg PO NOW PRN PRN Reason: Nausea And Vomiting Vital Signs Vital signs: Vital Signs - 8 hr 05/17/24 09:20 Temperature 98.6 F Pulse Rate 84 Respiratory Rate 14 Blood Pressure 134/69 Pulse Oximetry 96 Oxygen Delivery Method Room Air MDM - Abdominal Pain Lab Data Point of care testing: Urine Dip Bedside Urine Glucose Negative Bedside Urine Bilirubin - Negative Bedside Urine Ketone - Negative Urine Specific [place] 1.030 Bedside Urine Occult Blood - Negative Bedside Urine pH 6.0 Bedside Urine Protein - Negative Bedside Urine Urobilinogen - Negative Bedside Urine Nitrite - Negative Bedside Urine Leukocytes - Negative Esterase Imaging Data CT scan - abdomen/pelvis: Radiologist's Impression: [address] [address] [address] Scan Report Signed Patient: Paulino Keyes MR#: [id number] : 1975 Acct:[id number] Age/Sex: 48 / M Date of Service: 05/17/24 Loc: ED Accession Number: [id number] Procedure: CT abdomen pelvis wo con Ordering Provider: Ollie Conley D.O. PROCEDURE: CT ABDOMEN PELVIS WO CON INDICATIONS: abd pain TECHNIQUE: Axial sections were acquired from the lung bases to the pubic symphysis. Coronal and sagittal reformats were performed. For radiation dose reduction, the following was used: automated exposure control, adjustment of mA and/or kV according to patient size. COMPARISON: None. FINDINGS: Image quality: Diagnostic. Lower Chest: No significant findings. URINARY: Right Kidney: No hydro nephrosis or obstructing stones. Right Ureter: No hydroureter. Left Kidney: No obstructing stones or hydronephrosis. Left Ureter: No hydroureter. Bladder: Normal wall thickness. No stones. ABDOMEN: Liver: No contour-deforming solid mass. Gallbladder: No radiopaque gallstones or wall thickening. Biliary ducts: No biliary dilation. Pancreas: No ductal dilation. Spleen: Size is within normal limits. Adrenal Glands: No adrenal nodules. Stomach and Bowel: There is no bowel obstruction. No abnormal bowel wall thickening or mesenteric fat stranding. Mild fecal stasis in the colon is seen. Appendix is visualized and is within normal limits. Sigmoid diverticulosis without CT evidence of acute diverticulitis. No abscess collection. Peritoneum: No abnormal intraperitoneal fluid. No free air. Ventral Wall: No hernia. Abdominal Nodes: No enlarged retroperitoneal or mesenteric lymph nodes. Vessels: Aorta and inferior vena cava are normal in size. PELVIS: Pelvic Organs: Unremarkable. Pelvic Nodes: Unremarkable. Miscellaneous: No inguinal hernias are seen. Bones: No aggressive appearing bony lesions. No acute vertebral body compression fracture. Spondylitic changes at L4-5 and L5-S1 levels are seen. IMPRESSION: 1. No obstructing renal stones or hydronephrosis. Normal appearing urinary bladder. 2. Normal appendix. No bowel obstruction or abnormal bowel wall thickening. Sigmoid diverticulosis without CT evidence of acute diverticulitis. No abscess collection. No free fluid or free air. Dictated by: Familia Figueroa M.D. on 05/17/2024 at 11:49 Approved by: Familia Figueroa M.D. on 05/17/2024 at 11:56 Patient was a difficult stick and so we do not get any blood work due to his IV drug use history but his CT scan was reviewed along with his medication list, nurse triage note, vital Signs, and previous ER visit revieweds. Patient will be discharged on on dicyclomine and senna laxative pills as he gets constipated easily. Differential diagnosis includes diverticulitis pancreatitis kidney stone kidney infection and constipation Discharge Plan Departure Patient Disposition: Home Clinical Impression: Abdominal pain, acute, left lower quadrant Instructions: DI for Abdominal Pain-Adult Activity Restrictions/Additional Instructions: Return with new or worsening symptoms, take your medicines as directed, and follow up with PCP in 1-2 weeks Prescriptions: New dicyclomine 20 mg tablet 20 mg PO TID Qty: 60 0RF Senna Plus 8.6-50 mg capsule 1 tab-cap PO BEDTIME PRN (Reason: constipation) Qty: 30 0RF No Action fluticasone propionate [Flonase Allergy Relief] 50 mcg/actuation spray,suspension 1 spray intranasal Q12H PRN (Reason: nasal congestion) Qty: 16 0RF Rx Instructions: administer into each nostril furosemide 20 mg tablet 20 mg PO DAILY Qty: 90 0RF albuterol sulfate 2.5 mg /3 mL (0.083 %) solution for nebulization 2.5 mg inhalation Q4-6H PRN (Reason: shortness of breath or wheezing) Qty: 75 0RF methadone 40 mg tablet,soluble 35 mg PO DAILY methylprednisolone [Medrol (Kaden)] 4 mg tablets,dose pack See Rx Instructions .ROUTE .COMPLEX Qty: 21 0RF Rx Instructions: for 6 days Referrals: Joy Denise DO [Primary Care Provider] - Stand Alone Forms: Patient Portal/API/Survey
--- NOTE | 2024-05-17 11:45 | DI.CT.S_ITS ---
PROCEDURE: CT ABDOMEN PELVIS WO CON INDICATIONS: abd pain TECHNIQUE: Axial sections were acquired from the lung bases to the pubic symphysis. Coronal and sagittal reformats were performed. For radiation dose reduction, the following was used: automated exposure control, adjustment of mA and/or kV according to patient size. COMPARISON: None. FINDINGS: Image quality: Diagnostic. Lower Chest: No significant findings. URINARY: Right Kidney: No hydro nephrosis or obstructing stones. Right Ureter: No hydroureter. Left Kidney: No obstructing stones or hydronephrosis. Left Ureter: No hydroureter. Bladder: Normal wall thickness. No stones. ABDOMEN: Liver: No contour-deforming solid mass. Gallbladder: No radiopaque gallstones or wall thickening. Biliary ducts: No biliary dilation. Pancreas: No ductal dilation. Spleen: Size is within normal limits. Adrenal Glands: No adrenal nodules. Stomach and Bowel: There is no bowel obstruction. No abnormal bowel wall thickening or mesenteric fat stranding. Mild fecal stasis in the colon is seen. Appendix is visualized and is within normal limits. Sigmoid diverticulosis without CT evidence of acute diverticulitis. No abscess collection. Peritoneum: No abnormal intraperitoneal fluid. No free air. Ventral Wall: No hernia. Abdominal Nodes: No enlarged retroperitoneal or mesenteric lymph nodes. Vessels: Aorta and inferior vena cava are normal in size. PELVIS: Pelvic Organs: Unremarkable. Pelvic Nodes: Unremarkable. Miscellaneous: No inguinal hernias are seen. Bones: No aggressive appearing bony lesions. No acute vertebral body compression fracture. Spondylitic changes at L4-5 and L5-S1 levels are seen. IMPRESSION: 1. No obstructing renal stones or hydronephrosis. Normal appearing urinary bladder. 2. Normal appendix. No bowel obstruction or abnormal bowel wall thickening. Sigmoid diverticulosis without CT evidence of acute diverticulitis. No abscess collection. No free fluid or free air. Dictated by: Familia Figueroa M.D. on 05/17/2024 at 11:49 Approved by: Familia Figueroa M.D. on 05/17/2024 at 11:56
--- NOTE | 2024-05-17 11:48 | PC.NURSE ---
IV attempted several times. Pt declined US IV. Dr Conley notified and ok to order non-con CT.
[2024-05-17 11:50] VITALS: BP 115/56; PULSE 75; O2SAT 96
[2024-05-17 12:00] VITALS: BP 111/54; PULSE 68; O2SAT 95
[2024-05-17 12:30] VITALS: BP 107/56; PULSE 70; O2SAT 95
[2024-05-17 12:46] VITALS: BP 115/66; PULSE 76; RESP 18; O2SAT 98
== END 2024-05-17 12:46 | disposition home or self-care (01) ==
PROVIDERS: Emergency Provider Family Medicine; PCP Family Medicine
DX: R10.32 Left lower quadrant pain (principal); F11.20 Opioid dependence, uncomplicated
CPT/HCPCS: 74176; 81003; 99282; 99284

== ENCOUNTER → 2024-05-19 16:48 | Outpatient (CLI) | payer OTHER, SELFPAY ==
--- NOTE | 2024-05-19 16:50 | DI.MRI.S_ITS ---
PROCEDURE: MR LUMBAR SPINE WO CON INDICATIONS: Spondylosis, Lumbar with Myelopathy TECHNIQUE: Noncontrast sagittal T1 spin echo and T2 fast echo, sagittal STIR, and T2 fast spin echo through the lumbar spine. In cases with scoliosis, additional coronal T2 fast spin echo may be performed. COMPARISON: None. FINDINGS: Image quality: Excellent. Alignment and Curvature: There is normal bony alignment. Bone Marrow: Marrow is of normal overall signal. No acute vertebral body compression fractures. Spinal Cord: Conus medullaris terminates at the L1 level. Visualized cord demonstrates normal signal and size. Paraspinous Soft Tissues: No paravertebral masses. T12-L1: Normal appearance. L1-L2: Normal appearance. L2-L3: Normal appearance. L3-L4: Right subarticular disc protrusion fills the right lateral recess displacing the descending nerve root. Underlying broad-based disc bulge. Mild central stenosis. Mild bilateral foraminal stenosis. L4-L5: Broad-based disc bulge and hypertrophic arthropathy. Mild central stenosis. Mild bilateral foraminal stenosis L5-S1: Disc bulge and arthropathy. No central stenosis. No foraminal stenosis IMPRESSION: Focal subarticular right disc protrusion displaces the descending nerve root in right lateral recess. Approved by: Juan David Sol M.D. on 05/20/2024 at 11:11
== END ==
LOC: MRI 16:49
PROVIDERS: PCP Family Medicine; Referring Provider Family Medicine; Visit Provider Family Medicine
DX: M47.16 Other spondylosis with myelopathy, lumbar region (principal); M51.06 Intervertebral disc disorders with myelopathy, lumbar region; I73.9 Peripheral vascular disease, unspecified
CPT/HCPCS: 72148

== ENCOUNTER 2024-07-29 10:01 | Emergency (ER) | payer OTHER, SELFPAY ==
[2024-07-29] VITALS (9 sets, daily range): BP systolic 112–155; BP diastolic 64–97; PULSE 65–74; RESP 16–23; TEMP 36.8; O2SAT 95–98; BMI 36.3
--- NOTE | 2024-07-29 10:12 | EKG_ITS ---
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
--- NOTE | 2024-07-29 10:18 | DI.RAD.S_ITS ---
PROCEDURE: XR CHEST 1V INDICATIONS: Chest Pain TECHNIQUE: One view of the chest was acquired. COMPARISON: [facility], CR, XR CHEST 2V, 05/09/2024, 4:44. FINDINGS: Surgical changes and devices: None. Lungs and pleura: Lungs are clear. No pleural effusions or pneumothorax. Mediastinum: Mediastinal contours appear normal. Heart size is normal. Bones and chest wall: No suspicious bony lesions. Overlying soft tissues appear unremarkable. IMPRESSION: No acute cardiopulmonary pathology. Dictated by: Familia Figueroa M.D. on 07/29/2024 at 10:50 Approved by: Familia Figueroa M.D. on 07/29/2024 at 10:50
[2024-07-29 11:00] LABS: Add Manual Diff / Slide Review NO; Basophils Absolute Auto 100 /uL (0-100); Basophils Percent Auto 0.9 % (0-2); Eosinophils Absolute Auto 500 /uL (0-450); Eosinophils Percent Auto 7.2 % (2-4); Hematocrit 40.3 % (41-53); Lymphocytes Absolute Auto 1800 /uL (1100-4500); Lymphocytes Percent Auto 26.6 % (25-40); Mean Corpuscular HGB Conc 34.7 % (30-36); Mean Corpuscular Hemoglobin 29.9 PG (26-34); Mean Corpuscular Volume 86.3 fL (80-100); Monocytes Absolute Auto 500 /uL (0-900); Monocytes Percent Auto 7.5 % (3-14); Neutrophils Absolute Auto 3900 /uL (1500-7000); Neutrophils Percent Auto 57.8 % (50-75); Platelet Count 231 X10^3/uL (150-400); Red Blood Cell Count 4.67 X10^6/uL (4.5-5.9); Red Cell Distribution Width 12.8 % (11.6-14.8); White Blood Cell Count 6.7 X10^3/uL (4.5-11.0)
[2024-07-29 11:06] LABS: INR 0.8 (0.9-1.3); Prothrombin Time 9.5 SECONDS (9.4-12.5)
[2024-07-29 11:08] LABS: PTT Partial Thromboplastin Tim 34 SECONDS (25.1-36.5)
[2024-07-29 11:10] LABS: Alanine Aminotransferase 22 IU/L (<50); Albumin 4.8 g/dL (3.5-5.0); Albumin Globulin Ratio 1.6 (1.0-2.8); Alkaline Phosphatase 67 U/L (38-126); Aspartate Aminotransferase 37 IU/L (17-59); BUN Creatinine Ratio 22.1 (6-22); Bilirubin Total 0.9 mg/dL (0.2-1.3); Blood Urea Nitrogen 17 mg/dL (9-20); Calcium 9.2 mg/dL (8.4-10.2); Carbon Dioxide 27 mmol/L (22-32); Chloride 101 mmol/L (98-107); Creatine Kinase 73 U/L (55-170); Estimated Glomerular Filt Rate > 60 mL/min (>60); Glucose 91 mg/dL (70-99); HEMOLYSIS 42 (0-50); Lipase 45 U/L (23-300); Potassium 4.3 mmol/L (3.4-5.1); Sodium 138 mmol/L (137-145); Total Protein 7.8 g/dL (6.3-8.2)
[2024-07-29 11:22] LABS: NT-proBNP (BNP-Adult 18+) 47 pg/mL (<125); Troponin I < 0.012 ng/mL (0.01-0.034)
--- NOTE | 2024-07-29 11:39 | ED.CHESTPAIN ---
HPI - Chest Pain General Chief Complaint: Chest Pain Stated Complaint: Sharp chest pain Time Seen by Provider: 07/29/24 11:37 Source: patient, RN notes reviewed and old records reviewed Mode of arrival: Family Vehicle Limitations: no limitations Limitations: no limitations History of Present Illness HPI narrative: 48-year-old male history of substance abuse rolling on methadone, CHF, patient presents with complaint of some left-sided substernal chest pain that is been present for a long time he states over the last couple of weeks has been a little bit more frequent he describes it as feeling sometimes little tight or squeezing but also sometimes worse when he eats. He denies any radiation. Denies fevers or chills. Denies any shortness of breath. No diaphoresis. No nausea or vomiting. No swelling in extremities currently. He states he was having a lot of swelling but it is improved. He has been office furosemide because he was told it can be hard on his kidneys. He denies any rash or skin changes. No new abdominal back or flank pain. No other GI or urinary symptoms. Notes current medications are furosemide which he was not taking in methadone 100 mg daily, takes melatonin Advil PM. No prior surgeries. Allergy to sulfa. No tobacco, no alcohol, no recreational drugs currently states he has been sober for some time but does have a history remotely of IV drug use. He was never had a cardiac workup, states his mom started having stroke issues in her 60s. No other known cardiac history, no embolic history. He was set up for a colonoscopy in the secondary to some chronic abdominal pain and issues. He does have a primary care doctor James that he follows through [facility]. Related Data Home Medications ?Medication ?Instructions ?Recorded ?Confirmed methadone 40 mg soluble tablet 35 mg PO DAILY 05/30/20 05/09/24 Previous Rx's ?Medication ?Instructions ?Recorded fluticasone propionate 50 1 spray intranasal Q12H PRN nasal 07/03/21 mcg/actuation nasal congestion #16 grams spray,suspension (Flonase Allergy Relief) furosemide 20 mg tablet 20 mg PO DAILY #90 tabs 11/03/22 methylprednisolone 4 mg tablets in See Rx Instructions PO .COMPLEX 05/05/24 a dose pack (Medrol (Kaden)) #21 ea albuterol sulfate 2.5 mg/3 mL 2.5 mg (3 mL) inhalation Q4-6H PRN 05/09/24 (0.083 %) solution for nebulization shortness of breath or wheezing #75 mL dicyclomine 20 mg tablet 20 mg PO TID #60 tabs 05/17/24 sennosides 8.6 mg-docusate sodium 1 tab-cap PO BEDTIME PRN 05/17/24 50 mg capsule (Senna Plus) constipation #30 caps Allergies Allergy/AdvReac Type Severity Reaction Status Date / Time Sulfa (Sulfonamide Allergy Unknown Verified 07/29/24 10:19 Antibiotics) Review of Systems Review of Systems ROS Unobtainable: All systems reviewed & are unremarkable except as noted in HPI and below Patient History Medical History Polysubstance use disorder Anxiety (Unknown) GERD (gastroesophageal reflux disease) (Unknown) Degenerative disc disease at L5-S1 level (Unknown) 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) Surgical History H/O hand surgery Family History Family/Other Loud snoring Obesity Hypertension Heart disease Depression Anxiety Alcohol abuse Father Loud snoring Alcohol abuse Substance abuse Mother Loud snoring Sleep apnea Insomnia Obesity Hypertension Heart disease Depression Anxiety Alcohol abuse Substance abuse Family/Other Loud snoring Insomnia Anxiety Depression Alcohol abuse Substance abuse Family/Other Depression Anxiety Alcohol abuse Social History household members: children and friend(s) alcohol intake: current tobacco type: cigarettes alcohol intake frequency: holidays/special occasions only Exam Narrative Exam Narrative: GENERAL: Alert and oriented x three, male in mild distress HEENT: Head normocephalic, atraumatic, EOMI, pupils reactive, face symmetric, moist mucous membranes NECK: Supple, full range of motion CARDIOVASCULAR: Regular rate and rhythm without murmurs, rubs or gallops. RESPIRATORY: Breath sounds equal bilaterally, no wheezes rales or rhonchi. ABDOMEN: Soft, nontender. Normoactive bowel sounds all 4 quadrants. No guarding or rebound, rigidity, no mass : No CVA tenderness EXTREMITIES: Normal range of motion, no clubbing or edema. Neurovascularly intact NEUROLOGICAL: Cranial nerves II through XII grossly intact. Moving all extremities SKIN: Warm, dry, no petechiae, no rashes or lesions. Initial Vital Signs Initial Vital Signs: Vital Signs Temperature 98.2 F 07/29/24 10:19 Pulse Rate 74 07/29/24 10:19 Respiratory Rate 17 07/29/24 10:19 Blood Pressure 155/97 H 07/29/24 10:19 Pulse Oximetry 98 07/29/24 10:19 Oxygen Delivery Method Room Air 07/29/24 10:19 Scores HEART Score Heart Score history: Moderately Suspicious Heart Score EKG: Normal Heart Score Age: 45-64 years old Heart Score risk factors: 1-2 risk factors Heart Score troponin: < or = to normal limit Heart Score Total: 3 Course Orders Ordered: Discontinued Medications Aspirin (Aspirin 81 Mg Chew Tab) 324 mg PO NOW ONE Stop: 07/29/24 10:19 Last Admin: 07/29/24 10:34 Dose: Not Given Documented By: Al Hydrox/Mg Hydrox/Simethicone 20 ml/ Lidocaine HCl 15 ml 0 ml PO NOW ONE Stop: 07/29/24 11:57 Last Admin: 07/29/24 12:04 Dose: 30 ml Documented By: Vital Signs Vital signs: Vital Signs - 8 hr 07/29/24 10:19 07/29/24 10:34 07/29/24 10:35 Temperature 98.2 F Pulse Rate 74 70 Respiratory Rate 17 23 Blood Pressure 155/97 H 138/84 Pulse Oximetry 98 96 Oxygen Delivery Method Room Air 07/29/24 10:35 07/29/24 11:00 07/29/24 11:00 Temperature Pulse Rate 72 71 Respiratory Rate 23 21 Blood Pressure 126/76 Pulse Oximetry 97 95 Oxygen Delivery Method Room Air MDM - Chest Pain Lab Data 07/29/24 10:38 07/29/24 10:38 Labs: Lab Results 07/29/24 07/29/24 Range/Units 10:38 12:35 WBC 6.7 (4.5-11.0) X10^3/uL RBC 4.67 (4.5-5.9) X10^6/uL Hgb 14.0 (13.5-17.5) g/dL Hct 40.3 L (41-53) % MCV 86.3 (80-100) fL MCH 29.9 (26-34) PG MCHC 34.7 (30-36) % RDW 12.8 (11.6-14.8) % Plt Count 231 (150-400) X10^3/uL Neut % (Auto) 57.8 (50-75) % Lymph % (Auto) 26.6 (25-40) % [place] % (Auto) 7.5 (3-14) % Eos % (Auto) 7.2 H (2-4) % Baso % (Auto) 0.9 (0-2) % Neut # (Auto) 3900 (8239-6769) /uL Lymph # (Auto) 1800 (2152-7639) /uL [place] # (Auto) 500 (0-900) /uL Eos # (Auto) 500 H (0-450) /uL Baso # (Auto) 100 (0-100) /uL PT 9.5 (9.4-12.5) SECONDS INR 0.8 L (0.9-1.3) APTT 34 (25.1-36.5) SECONDS Sodium 138 (137-145) mmol/L Potassium 4.3 (3.4-5.1) mmol/L Chloride 101 (98-107) mmol/L Carbon Dioxide 27 (22-32) mmol/L BUN 17 (9-20) mg/dL Creatinine 0.77 (0.66-1.25) mg/dL Estimated GFR > 60 (>60) mL/min BUN/Creatinine Ratio 22.1 H (6-22) Glucose 91 (70-99) mg/dL Calcium 9.2 (8.4-10.2) mg/dL Magnesium 2.0 (1.6-2.3) mg/dL Total Bilirubin 0.9 (0.2-1.3) mg/dL AST 37 (17-59) IU/L ALT 22 (<50) IU/L Alkaline Phosphatase 67 (38-126) U/L Total Creatine Kinase 73 (55-170) U/L Troponin I < 0.012 < 0.012 (0.01-0.034) ng/mL NT-Pro-B Natriuret Pep 47 (<125) pg/mL Total Protein 7.8 (6.3-8.2) g/dL Albumin 4.8 (3.5-5.0) g/dL Globulin 3.0 (1.7-4.1) g/dL Albumin/Globulin Ratio 1.6 (1.0-2.8) Lipase 45 (23-300) U/L ECG Data Attestation: I personally reviewed and interpreted this ECG as follows: Prior ECG tracings: available for review Interpretation: Sinus rhythm rate of 73 VT 162 QRS 80 QTC of 458, no acute ST elevation or depression noted. Patient has from 05/05/2024 which appears similar. Repeat EKG shows sinus rhythm rate of 73 VT 172 QRS 84 QTC 445, no acute EKG changes. No acute ST depression or elevation. MDM Narrative Medical decision making narrative: EKG shows sinus rhythm, no acute EKG changes CBC shows normal white count, hemoglobin of 14 platelets of 231 hematocrit chronically low but today 40. INR 0.8, electrolytes are normal BUN creatinine is normal, glucose is 91 LFTs are normal, troponins less than 0.012 with a BNP of 47 and a lipase of 45. Repeat troponin is less than 0.012. Chest x-ray no acute change. Aspirin 324 mg. Heart score of 3. Patient had GI cocktail and aspirin. Patient did have some improvement with gi cocktail. Discharge Plan Departure Patient Disposition: Home Clinical Impression: Chest pain Instructions: DI for Chest Pain Activity Restrictions/Additional Instructions: Follow up for recheck with your primary care. As discussed you can continue your furosemide as prescribed. You can take this medication with your regular methadone. If you noticed some of your symptoms seemed to be more related to food or ingestion of coffee you can take Pepcid thcg-[id number]-zqvrjva 40 mg daily. I would take this for several weeks to see if it is helpful. Please return if you have new or concerning changes, new or worsening chest pain, increasing shortness of breath, lightheadedness or passing out, new swelling of your extremities, persistent vomiting or other new or concerning changes. Prescriptions: No Action fluticasone propionate [Flonase Allergy Relief] 50 mcg/actuation spray,suspension 1 spray intranasal Q12H PRN (Reason: nasal congestion) Qty: 16 0RF Rx Instructions: administer into each nostril furosemide 20 mg tablet 20 mg PO DAILY Qty: 90 0RF albuterol sulfate 2.5 mg /3 mL (0.083 %) solution for nebulization 2.5 mg inhalation Q4-6H PRN (Reason: shortness of breath or wheezing) Qty: 75 0RF dicyclomine 20 mg tablet 20 mg PO TID Qty: 60 0RF Senna Plus 8.6-50 mg capsule 1 tab-cap PO BEDTIME PRN (Reason: constipation) Qty: 30 0RF methadone 40 mg tablet,soluble 35 mg PO DAILY methylprednisolone [Medrol (Kaden)] 4 mg tablets,dose pack See Rx Instructions .ROUTE .COMPLEX Qty: 21 0RF Rx Instructions: for 6 days Referrals: Joy Denise DO [Primary Care Provider, Medical] Stand Alone Forms: Patient Portal/API
[2024-07-29] MEDS: MAG HYDROX/ALUMINUM/SIMETH SUS 20 ML, LIDOCAINE VISCOUS 2% 15 ML PO (12:04)
--- NOTE | 2024-07-29 12:44 | EKG_ITS ---
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
[2024-07-29 13:09] LABS: Troponin I < 0.012 ng/mL (0.01-0.034)
== END 2024-07-29 13:46 | disposition home or self-care (01) ==
PROVIDERS: Emergency Provider Emergency Medicine; PCP Family Medicine
DX: R07.9 Chest pain, unspecified (principal); R60.9 Edema, unspecified
CPT/HCPCS: 71045; 80053; 82550; 83690; 83735; 83880; 84484; 85025; 85610; 85730; 93005; 99283; 99284